=== PATIENT | male | born 1975 | race Caucasian/White ===

== ENCOUNTER 2022-08-05 19:34 | Emergency (ER) | payer SELFPAY ==
[2022-08-05 19:35] VITALS: BP 141/94; PULSE 69; RESP 15; TEMP 37.2; O2SAT 98
[2022-08-05 19:54] VITALS: BMI 44.5
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
[2022-08-05] MEDS: HYDROcodone Bitartrate/Apap 5/325 Tablet PO (20:32)
--- NOTE | 2022-08-05 20:45 | RAD_ITS ---
INDICATION: injury EXAMINATION/TECHNIQUE: X-RAY - RIGHT XR Femur Min 2 Views 4 VIEWS COMPARISON: None. FINDINGS: No acute fracture or dislocation. No destructive bone changes. Joint spaces are well-maintained. Normal alignment. Soft tissues are unremarkable. No radiopaque foreign body or soft tissue gas. RAD/Femur Min 2 Views IMPRESSION: No acute findings. Electronically Signed: Sienna Conteh MD at 21:28 EDT Reading Location ID and State: [id number] / Tel , Service support ,
== END 2022-08-05 22:35 | disposition home or self-care (01) ==
PROVIDERS: Emergency Provider Emergency Medicine; Visit Provider Emergency Medicine
DX: S40.011A Contusion of right shoulder, initial encounter (principal); S70.11XA Contusion of right thigh, initial encounter; S30.0XXA Contusion of lower back and pelvis, initial encounter; F12.90 Cannabis use, unspecified, uncomplicated; V48.0XXA Car driver injured in noncollision transport accident in nontraffic accident, initial encounter
CPT/HCPCS: 72220; 73030; 73552; 99283

== ENCOUNTER 2024-05-10 19:52 | Emergency (ER) | payer SELFPAY ==
[2024-05-10 19:53] VITALS: BP 181/108; PULSE 94; RESP 15; TEMP 36.1; O2SAT 100; BMI 41.4
--- NOTE | 2024-05-10 20:23 | EX.ED.SAOD ---
HPI <EMILIANA Shah - Last Filed: 05/10/24 21:55> History of Present Illness Chief Complaint: Mental Health Narrative Narrative: 48-year-old male presents requesting detox. He is vague on the history. He tells me that he wishes he could pinpoint what is wrong but he is not sure. He has used different drugs such as methamphetamine, marijuana, acid, and is not sure what else. His brother and friend arrived who gave me more history. His friend states he has a long-term drug problem but over the last 3 to 4 weeks has been worse, down and depressed, not acting himself. They were trying to arrange a long-term detox stay at a place in [place] called [facility] but the facility there told them he needs an acute detox in a hospital setting before going there [facility] <EMILIANA Shah - Last Filed: 05/10/24 21:55> [facility] Medical History Drug use Home Medications ?Medication ?Instructions ?Recorded ?Last Taken ?Type tramadol 50 mg tablet 50 mg PO Q6H PRN pain 3 days #12 08/05/22 Unknown Rx tabs Allergy/AdvReac Type Severity Reaction Status Date / Time No Known Allergies Allergy Verified 05/10/24 19:53 Social History (Updated 08/05/22 @ 20:[address] Davonte Mendiola MD) Smoking Status: Never smoker substance use type: marijuana ROS <EMILIANA Shah - Last Filed: 05/10/24 21:55> ROS ED ROS Narrative Constitutional: Negative for fever, chills, malaise. CVS: Negative for chest pain. Respiratory: Negative for shortness of breath. GI: Negative for abdominal pain, nausea, vomiting. Neuro: Negative for headache. EXAM <EMILIANA Shah - Last Filed: 05/10/24 21:55> Physical Exam Narrative Exam Narrative: CONST: Patient sitting in no acute distress. EYES: Normal inspection. NECK: Normal inspection. RESP: No respiratory distress, CTAB. CVS: Regular rate and rhythm, no murmur, no gallop. SKIN: Color normal, no rash, warm, dry, intact. EXTREMITIES: Normal appearance, no pedal edema. NEURO: Alert and answering questions appropriately, calm but became tearful during exam. PSYCH: Normal affect. Const Vital Signs: 05/10/24 19:53 Temperature 96.9 F L Temperature Source Temporal Pulse Rate 94 Respiratory Rate 15 Blood Pressure 181/108 H Blood Pressure Mean 132 Pulse Ox 100 Oxygen Delivery Method Room Air <Dr. Dylon Hinkle DO - Last Filed: 05/11/24 00:37> Physical Exam Const Vital Signs: 05/10/24 19:53 Temperature 96.9 F L Temperature Source Temporal Pulse Rate 94 Respiratory Rate 15 Blood Pressure 181/108 H Blood Pressure Mean 132 Pulse Ox 100 Oxygen Delivery Method Room Air MDM <EMILIANA Shah - Last Filed: 05/10/24 21:55> MDM MDM Narrative Medical decision making narrative: History gathered from: Patient, brother, friend 48 year old male presents requesting detox. He is reticent to provide details and cannot tell me exactly what drugs he is using. He reports feeling burnt out and depressed but is not suicidal or homicidal. His friend and brother arrived who states they want him to detox in the hospital before they plan to take him to a longer term addiction treatment facility in [place]. Patient's blood work and urine drug screen was obtained to see what substances he is on and if these would require detox. CBC is unremarkable. CMP shows glucose of 266, otherwise normal. Alcohol level is negative. Lab Data Attestation: I reviewed the patient's lab results. Labs: Laboratory Results - last 24 hr 05/10/24 05/10/24 20:30 21:42 WBC 8.5 RBC 5.23 Hgb 14.9 Hct 42.6 MCV 81.5 MCH 28.5 MCHC 35.0 RDW Std Deviation 34.4 L RDW Coeff of Cornell 11.7 Plt Count 225 MPV 9.7 Immature Gran % (Auto) 0.200 Neut % (Auto) 60.9 Lymph % (Auto) 29.9 Kaufman % (Auto) 7.1 Eos % (Auto) 1.3 Baso % (Auto) 0.6 Absolute Neuts (auto) 5.2 Absolute Lymphs (auto) 2.54 Nucleated RBC % 0 Sodium 136 Potassium 3.7 Chloride 102 Carbon Dioxide 26.0 Anion Gap 8 BUN 15 Creatinine 0.90 Estim Creat Clear Calc 119.06 Est GFR (MDRD) Af Amer 117 Est GFR (MDRD) Non-Af 96 BUN/Creatinine Ratio 16.7 Glucose 266 H Calcium 9.1 Total Bilirubin 0.60 AST 12 L ALT 22 Alkaline Phosphatase 78 Total Protein 7.2 Albumin 3.5 Globulin 3.7 Albumin/Globulin Ratio 0.9 Urine Opiates Screen NEGATIVE Urine Methadone Screen NEGATIVE Ur Barbiturates Screen NEGATIVE Ur Phencyclidine Scrn NEGATIVE Ur Amphetamines Screen NEGATIVE MDMA (Ecstasy) Screen NEGATIVE U Benzodiazepines Scrn NEGATIVE Urine Cocaine Screen NEGATIVE U Cannabinoids Screen POSITIVE H Ur Drug Screen Comment Ethyl Alcohol < 3.0 <Dr. Dylon Hinkle, DO - Last Filed: 05/11/24 00:37> [facility] Lab Data Labs: Laboratory Results - last 24 hr 05/10/24 05/10/24 20:30 21:42 WBC 8.5 RBC 5.23 Hgb 14.9 Hct 42.6 MCV 81.5 MCH 28.5 MCHC 35.0 RDW Std Deviation 34.4 L RDW Coeff of Cornell 11.7 Plt Count 225 MPV 9.7 Immature Gran % (Auto) 0.200 Neut % (Auto) 60.9 Lymph % (Auto) 29.9 Kaufman % (Auto) 7.1 Eos % (Auto) 1.3 Baso % (Auto) 0.6 Absolute Neuts (auto) 5.2 Absolute Lymphs (auto) 2.54 Nucleated RBC % 0 Sodium 136 Potassium 3.7 Chloride 102 Carbon Dioxide 26.0 Anion Gap 8 BUN 15 Creatinine 0.90 Estim Creat Clear Calc 119.06 Est GFR (MDRD) Af Amer 117 Est GFR (MDRD) Non-Af 96 BUN/Creatinine Ratio 16.7 Glucose 266 H Calcium 9.1 Total Bilirubin 0.60 AST 12 L ALT 22 Alkaline Phosphatase 78 Total Protein 7.2 Albumin 3.5 Globulin 3.7 Albumin/Globulin Ratio 0.9 Urine Opiates Screen NEGATIVE Urine Methadone Screen NEGATIVE Ur Barbiturates Screen NEGATIVE Ur Phencyclidine Scrn NEGATIVE Ur Amphetamines Screen NEGATIVE MDMA (Ecstasy) Screen NEGATIVE U Benzodiazepines Scrn NEGATIVE Urine Cocaine Screen NEGATIVE U Cannabinoids Screen POSITIVE H Ur Drug Screen Comment Ethyl Alcohol < 3.0 Treatment and Re-Evaluation Narrative: I have personally performed a face to face assessment of the patient and have reviewed the MOLLY Note. I performed a substantive portion of the visit including all aspects of the following. My bhatti findings include: History: Patient presents with intermittent confusion that has been going on for the past few weeks. Patient states it is gradually getting worse. Patient admits to a history of substance abuse. Patient states he is scheduled to go to a long-term inpatient treatment facility. However, family states that the patient was told to go to a hospital that does acute detox. Patient admits to using methamphetamines and opiates. Patient does not know exactly how much of the methamphetamines and opiates that he takes. Patient states he just takes them to get high. Patient denies any suicidal homicidal ideations. Exam: Vital signs are stable except for an elevated blood pressure of 181/108. Patient is afebrile. Patient is in no acute distress. Patient is resting comfortably on examination. Oral mucosa is pink and moist. Neck is supple. Trachea is midline. There is no JVD. Heart was regular rate and rhythm. Lungs are clear and equal bilaterally. There is good respiratory effort noted. Abdomen is soft. Bowel sounds are normal. There is no tenderness. Cranial nerves II through XII are intact. There are no focal motor or sensory deficit. Medical Decision Making: CBC will be obtained to assess for leukocytosis and anemia. Comprehensive metabolic profile will be obtained to assess for hepatic function, renal function, and electrolyte abnormality. Serum alcohol level will be obtained to assess for alcohol intoxication. Urine drug screen will be obtained to assess for substance abuse. CBC was reviewed and was within normal limits. Serum alcohol level was reviewed and was normal at less than 3.0. Comprehensive metabolic profile was reviewed. Glucose was mildly elevated at 266. Anion gap was normal. The remainder was within normal limits. Urine tox screen was reviewed and was positive for cannabinoids. Patient was advised of his findings. Patient was advised that he cannot be admitted for detox from cannabinoids. Since there is no other substance that was positive the last tox screen, patient was advised that he cannot be admitted for detox. Patient states he disagrees with the diagnosis. Patient was advised that since he does not know what substances that he abuses, and the only thing to show up on his tox screen was cannabinoids, inpatient detox is not available to him. I did advise the patient that we will have the crisis counselor come talk to him to provide other resources for him. Crisis counselor was in to evaluate the patient and felt the patient would benefit from inpatient treatment. Since he has no insurance, [facility] is the only option for him for inpatient treatment. Patient is agreeable to go. Convoy slip was placed on the chart. Patient will be transferred there when arrangements are made. Care of the patient was turned over the oncoming physician pending transfer. Discharge Plan Triage Chief Complaint: Mental Health ED Midlevel Provider: Thuy Amador ED Provider: Dylon Hinkle Dx/Rx/DC Orders Clinical Impression: Polysubstance abuse, Dissociative episodes Prescriptions: No Action tramadol 50 mg tablet 50 mg PO Q6H PRN (Reason: pain) 3 Days Qty: 12 0RF Primary Care Provider: Care Physician,No Primary Referrals: Care Physician,No Primary [Primary Care Provider] - Print Language: Japanese Disposition Disposition: Psychiatric Hospital or Unit Discharge Location: [facility]
[2024-05-10 20:42] LABS: Absolute Lymphocyte Count 2.54 X10^3/uL (0.83-4.51); Absolute Neutrophil Count 5.2 X10^3/uL (2.0-7.7); Basophil# 0.05 X10^3/uL; Basophil% 0.6 % (0-1); Eosinophil# 0.11 X10^3/uL; Eosinophils% 1.3 % (0-5); Hematocrit 42.6 % (40-54); Hemoglobin 14.9 g/dL (13.0-16.5); Lymphocyte # 2.54 X10^3/ul (0.83-4.51); Lymphocyte % 29.9 % (19-41); Mean Corpuscular Hgb 28.5 pg (27.0-32.0); Mean Corpuscular Volume 81.5 fL (80-94); Mean Platelet Vol. 9.7 fl (6.2-12.0); Monocyte% 7.1 % (0-10); NRBC Flagged by Analyzer 0 % (0-5); Neutrophil # 5.18 X10^3/uL (2.7-7.7); Neutrophil % 60.9 % (47-70); Platelet Count 225 K/mm3 (150-450); RBC Distribution Width CV 11.7 % (11.6-14.6); RBC Distribution Width SD 34.4 fl (35.1-43.9); Red Blood Count 5.23 M/mm3 (4.6-6.2); White Blood Count 8.5 K/mm3 (4.4-11.0)
[2024-05-10 20:55] LABS: Alcohol, Blood (Medical)-Serum < 3.0 mg/dL
[2024-05-10 20:59] LABS: ALB/GLOB Ratio 0.9 RATIO (0.9-2.4); AST(SGOT) 12 U/L (15-37); Alanine Aminotransfer ALT/SGPT 22 U/L (16-61); Albumin, Serum 3.5 g/dL (3.2-5.0); Alkaline Phosphatase 78 U/L (45-117); Anion Gap 8 (5-15); BUN 15 mg/dL (7-18); BUN/Creat Ratio 16.7 RATIO (10-20); Calcium,Total 9.1 mg/dL (8.5-10.1); Chloride 102 mmol/L (98-107); EST Glomerular Filtration Rate 96 mL/min (>60); Est Glom Filt Rate - Afr Amer 117 mL/min (>60); Estimated Creatinine Clearance 119.06 ml/min; Globulin 3.7 g/dL (2.2-4.2); Glucose 266 mg/dL (74-106); Potassium 3.7 mmol/L (3.5-5.1); Protein, Total 7.2 g/dL (6.4-8.2); Sodium Level 136 mmol/L (136-145)
[2024-05-10 22:08] LABS: Amphetamine Urine VISTA NEGATIVE (<1000 ng/mL); Barbiturate Urine VISTA NEGATIVE (< 200 ng/mL); Benzodiazepine Urine VISTA NEGATIVE (< 200 ng/mL); Cocaine Urine VISTA NEGATIVE (< 300 ng/mL); Ecstacy Urine VISTA NEGATIVE (< 500 ng/mL); Methadone Urine VISTA NEGATIVE (< 300 ng/mL); PCP Urine VISTA NEGATIVE (< 25 ng/mL); THC Urine VISTA POSITIVE (< 50 ng/mL); Vista UDS pH Range 5
[2024-05-11 04:00] VITALS: BP 161/73; PULSE 76; RESP 16; O2SAT 100
--- NOTE | 2024-05-11 06:10 | EKG12_ITS ---
Test Reason : PLACEMENT Blood Pressure : */* mmHG Vent. Rate : 81 BPM Atrial Rate : 81 BPM P-R Int : 164 ms QRS Dur : 136 ms QT Int : 404 ms P-R-T Axes : 44 14 39 degrees QTcB Int : 469 ms Normal sinus rhythm with sinus arrhythmia Right bundle branch block Abnormal ECG Confirmed by ARGENTINA BRUCE, VICTORIANO ([id number]), field map editor MICHEL REYES ([id number]) on 05/12/2024 7:55:29 AM Referred By: Confirmed By: VICTORIANO ELAINE MD
--- NOTE | 2024-05-11 06:10 | ED.RN ---
NETTA RN FROM [facility] CALLED ABOUT REFERRAL SENT ABOUT PT. REQUESTS AN EKG FOR HER DR TO REVIEW. CHARGE NURSE AWARE AND ORDER PUT IN.
--- NOTE | 2024-05-11 08:51 | CM.ED ---
Social Work Contacted Haydee at Crisis and updated that [facility] had requested an EKG, EKG was completed and faxed to [facility] this morning. Haydee to update either or nursing staff when she has information regarding acceptance. Johana Nails, GAS METER MECHANIC, BUSINESS LAW INSTRUCTOR
[2024-05-11 09:00] VITALS: BP 163/89; PULSE 76; RESP 16; O2SAT 99
--- NOTE | 2024-05-11 09:39 | ED.RN ---
ACCEPTED AT [facility] AT [id number]
[2024-05-11 09:51] VITALS: BP 163/89; PULSE 78; RESP 16; O2SAT 99
== END 2024-05-11 11:37 ==
PROVIDERS: Physician Assistant; Emergency Provider Emergency Medicine; Visit Provider Emergency Medicine
DX: F19.19 Other psychoactive substance abuse with unspecified psychoactive substance-induced disorder (principal); Z79.899 Other long term (current) drug therapy
CPT/HCPCS: 80053; 80307; 82077; 85025; 93005; 99285

== ENCOUNTER 2024-08-06 19:12 | Emergency (ER) | payer MEDICAID, SELFPAY ==
[2024-08-06 19:12] VITALS: BP 164/100; PULSE 80; RESP 14; TEMP 36.1; O2SAT 100; BMI 38.8
--- NOTE | 2024-08-06 19:44 | CT_ITS ---
PROCEDURE: BRAIN/HEAD WITHOUT CONTRAST 08/06/2024 REASON FOR EXAM: 49-year-old male, loss of consciousness, headache x6 months. TECHNIQUE: Head CT without intravenous contrast. Coronal and Sagittal reconstruction series were provided. One or more dose reduction techniques were used (e.g., Automated exposure control, adjustment of the mA and/or kV according to patient size, use of iterative reconstruction technique. RADIATION DOSE SUMMARY: CTDlvol: 45 mGy DLP: 812 mGycm COMPARISON: None. FINDINGS: Brain: Normal cerebral and cerebellar brain volume. The nails-white matter interfaces are maintained. No acute intracranial hemorrhage or herniation. CSF Spaces: No ventriculomegaly. Sinuses/Mastoids: The mastoid air cells and visualized paranasal sinuses are well-aerated. Bones: No acute calvarial fracture. No scalp hematoma. CT/Brain/Head without Contrast IMPRESSION: Unremarkable CT head. Reading Location: [id number]
--- NOTE | 2024-08-06 19:45 | EDS_ITS ---
HPI History of Present Illness Chief Complaint: Headache Informant: patient and spouse/S.O. Onset/Context/Timing Onset: Month(s) Context: Gradual Onset Timing: Intermittent Current Severity: Gone Maximum Severity: Mild Narrative Narrative: 49-year-old male history of methamphetamine abuse which he is trying to stop and diabetes. 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 She said he has had intermittent episodes of confusion. Said has had some intermittent headaches. No fall injury or head trauma. Did not vomiting, diarrhea or fever. Currently has no complaints. Prior similar symptoms: Yes Recent Illness/Hospitalization: No PFSH PFSH Medical History Drug use Home Medications ?Medication ?Instructions ?Recorded ?Last Taken ?Type tramadol 50 mg tablet 50 mg PO Q6H PRN pain 3 days #12 08/05/22 Unknown Rx tabs Allergy/AdvReac Type Severity Reaction Status Date / Time No Known Allergies Allergy Verified 08/06/24 19:13 Social History (Updated 08/06/24 @ 21:43 by Yelena Vazquez) household members: children housing: apartment Smoking Status: Never smoker substance use type: marijuana ROS ROS ED ROS Narrative Patient denies recent illness. Constitutional Constitutional ED: Denies chills or fever(s) Eyes Eyes: Denies blurry vision ENT ENT ED: Denies ear pain Respiratory/Chest Respiratory/Chest: Denies cough or dyspnea Gastrointestinal Gastrointestinal: Denies abdominal pain Genitourinary Genitourinary ED: Denies dysuria or hematuria Musculoskeletal Musculoskeletal: Denies arthralgias Integumentary Denies abscess or Abrasions Neurologic Neurologic: Reports headache(s) Psychiatric Psychiatric: Denies anxiety or depression Endocrine Endocrinology: Denies cold intolerance Hematologic/Lymphatic Hematologic/Lymphatic: Reports none Allergic/Immunologic Allergic/Immunologic ED: Denies mouth swelling, tongue swelling or urticaria EXAM Physical Exam Narrative Exam Narrative: 49-year-old male sitting upright in bed. Vital signs are stable afebrile. No acute distress. at bedside. H EENT exam pupils round reactive light. Extra motions are intact. No facial droop. Normal speech. No trauma to his face or scalp. Nontender. Neck nontender. No lymphadenopathy. Lungs clear to auscultation bilaterally. Heart regular rhythm rate about 80 no murmur. Chest wall ribs nontender. Abdomen soft nontender. Moving all 4 extremities. 5 out of 5 specification manager strength. Dorsi plantarflexion intact. Fingertip to nose within normal limits. No drift of either upper or lower extremities. Normal strength. Neurologically is awake and alert. Answer questions following commands. No focal motor deficits. Patient knows month, year. Denies states aware reside. Currently he is not confused. Const Vital Signs: 08/06/24 19:12 08/06/24 21:12 Temperature 97 F L Temperature Source Temporal Pulse Rate 80 89 Respiratory Rate 14 16 Blood Pressure 164/100 H 138/79 H Blood Pressure Mean 121 98 Pulse Ox 100 98 Oxygen Delivery Method Room Air Positive well nourished and well developed; Negative for cachectic, contractures or unkempt General Appearance ED: well developed and NAD; Negative for unkempt, cachectic, contractures, cyanotic, diaphoretic or pallor Nutritional Appearance: Negative for cachectic HEENT Reports moist mucous membranes Negative for trauma or tenderness Eyes EOMs intact bilaterally General Eye ED: Negative for pale conjunctiva or scleral icterus Neck no lymphadenopathy, supple and no JVD Chest Wall inspection of chest normal and palpation of chest normal Resp normal respiratory effort and clear to auscultation bilaterally Cardio regular rate, regular rhythm, S1 normal heart sound, S2 normal heart sound and no murmurs GI normal to inspection, nondistended, normoactive bowel sounds, non-tender and non-distended Palpation: Negative for tender, guarding or rebound tenderness present Back/Spine no CVA tenderness Extremity normal to inspection General Extremety ED: Negative for edema or tenderness General Extremity: Negative for edema Neuro oriented x3 and CN's II-XII intact bilaterally Sensorium / Orientation: alert; Negative for orientation impaired, lethargic or stuporous Motor Exam: strength 5/5 throughout Psych mental status grossly normal Appearance: Negative for unkempt Attitude: No agitated Mood & Affect: Negative for depressed, anxious or tearful Skin no rashes or lesions noted, no wounds and skin turgor normal General Skin Exam: elasticity normal; Negative for jaundice or pallor Lesions: No lesion noted Rashes: No rashes noted Trauma: Negative for abrasion Wounds: Negative for wounds noted MDM MDM MDM Narrative Medical decision making narrative: 49-year-old male history of methamphetamine abuse and diabetes episodes of confusion currently has a normal exam. CAT scan of his brain screening labs including a CBC and CMP will be obtained. Exam is benign. Repeat exam patient is doing well at 10:41 PM. He will be discharged home with outpatient follow-up. His ex- spoke to nursing and was requesting inpatient detox she never said that to me. We do not have inpatient detox from methamphetamine abuse. Patient does not want to be detoxed neither. History & Record Review Discussion w/independent historian: Patient and Family Additional record(s) reviewed:: Prior inpatient record, Prior outpatient record, Prior ED visit and Prior labs Lab Data Attestation: I reviewed the patient's lab results. Lab results narrative: CBC shows white count of 5. H&H 14 and 43. Platelets 219. Electrolytes show sodium 138. Gap 13. BUN and creatinine of 14 and 0.8. Glucose 192. Liver enzymes normal. CT of the brain showed no acute abnormality. Labs: Laboratory Results - last 24 hr 08/06/24 20:01 WBC 5.9 RBC 5.12 Hgb 14.7 Hct 43.1 MCV 84.2 MCH 28.7 MCHC 34.1 RDW Std Deviation 36.0 RDW Coeff of [place] 11.9 Plt Count 219 MPV 9.8 Immature Gran % (Auto) 0.200 Neut % (Auto) 59.2 Lymph % (Auto) 31.5 [place] % (Auto) 6.2 Eos % (Auto) 2.4 Baso % (Auto) 0.5 Absolute Neuts (auto) 3.5 Absolute Lymphs (auto) 1.87 Nucleated RBC % 0 Sodium 138 Potassium 4.2 Chloride 100 Carbon Dioxide 24.8 Anion Gap 13 BUN 14 Creatinine 0.88 Estim Creat Clear Calc 120.24 Est GFR (MDRD) Non-Af 107 BUN/Creatinine Ratio 15.3 Glucose 192 H Calcium 8.9 Total Bilirubin 0.28 AST 17 ALT 14 Alkaline Phosphatase 73 Total Protein 6.6 Albumin 3.8 Globulin 2.7 Albumin/Globulin Ratio 1.4 Radiography Diagnostic Testing: Clinical Impression(s) from Imaging Studies Brain CT 08/06/24 19:44 IMPRESSION: Unremarkable CT head. Reading Location: [facility] Discharge Plan Triage Chief Complaint: Headache ED Provider: Samson Abraham Dx/Rx/DC Orders Clinical Impression: Acute alteration in mental status, History of drug abuse Instructions: Substance Use Recovery Peer Support, ED Confusion Prescriptions: No Action tramadol 50 mg tablet 50 mg PO Q6H PRN (Reason: pain) 3 Days Qty: 12 0RF Primary Care Provider: Care Physician,No Primary Referrals: Care Physician,No Primary [Primary Care Provider] - Estefani Herring NP-C [Non-Staff] - As soon as possible Activity Restrictions/Additional Instructions: Your labs and CAT scan look good. Follow-up with the [facility] [place] if you are interested in drug counseling and rehabilitation. Your CAT scan and labs were unremarkable. Print Language: Indian Disposition Disposition: Home, Self Care
[2024-08-06 20:13] LABS: Absolute Lymphocyte Count 1.87 X10^3/uL (0.83-4.51); Absolute Neutrophil Count 3.5 X10^3/uL (2.0-7.7); Basophil# 0.03 X10^3/uL; Basophil% 0.5 % (0-1); Eosinophil# 0.14 X10^3/uL; Eosinophils% 2.4 % (0-5); Hematocrit 43.1 % (40-54); Hemoglobin 14.7 g/dL (13.0-16.5); Lymphocyte # 1.87 X10^3/ul (0.83-4.51); Lymphocyte % 31.5 % (19-41); Mean Corp Hgb Conc 34.1 g/dL (32-36); Mean Corpuscular Hgb 28.7 pg (27.0-32.0); Mean Corpuscular Volume 84.2 fL (80-94); Mean Platelet Vol. 9.8 fl (6.2-12.0); Monocyte# 0.37 X10^3/uL; Monocyte% 6.2 % (0-10); NRBC Flagged by Analyzer 0 % (0-5); Neutrophil # 3.52 X10^3/uL (2.7-7.7); Neutrophil % 59.2 % (47-70); Platelet Count 219 K/mm3 (150-450); RBC Distribution Width CV 11.9 % (11.6-14.6); Red Blood Count 5.12 M/mm3 (4.6-6.2); White Blood Count 5.9 K/mm3 (4.4-11.0)
[2024-08-06 20:36] LABS: ALB/GLOB Ratio 1.4 RATIO (0.9-2.4); AST(SGOT) 17 U/L (<=37); Alanine Aminotransfer ALT/SGPT 14 U/L (<=46); Albumin, Serum 3.8 g/dL (3.5-5.0); Alkaline Phosphatase 73 U/L (40-129); Anion Gap 13 (5-15); BUN 14 mg/dL (4-19); BUN/Creat Ratio 15.3 RATIO (10-20); Calcium,Total 8.9 mg/dL (7.6-11.0); Carbon Dioxide 24.8 mmol/L (21.0-32.0); Chloride 100 mmol/L (98-108); Creatinine, Serum 0.88 mg/dL (0.70-1.20); EST Glomerular Filtration Rate 107 (>60); Estimated Creatinine Clearance 120.24 ml/min (50-250); Globulin 2.7 g/dL (2.2-4.2); Glucose 192 mg/dL (70-99); Potassium 4.2 mmol/L (3.3-5.1); Protein, Total 6.6 g/dL (5.9-8.4); Sodium Level 138 mmol/L (133-145); Total Bilirubin 0.28 mg/dL (0.00-1.30)
[2024-08-06 21:12] VITALS: BP 138/79; PULSE 89; RESP 16; O2SAT 98
--- NOTE | 2024-08-06 21:30 | CM.ED ---
Social Work Patient came to ED with ex-, laura states that patient has had periods of intermittent confusion and headaches. Patients exwife left ED and later called back to speak to nurse. Exjuanitofe stated that patient was using when he had their 15 year old son and she feels that he needs treatment. Patient admits to half-way meth use, telling SW that he has been using for over 10 years. Patient states that over the years, he has convinced himself it was not a problem because he felt he wasn't overdoing it, just using it to keep himself awake for long road trips. Patient states that he does want to quit, however he does not feel he needs inpatient or residential treatment. Patient denies using while son is in his custody. Patient requested resources for counseling. Counseling list, [facility], [facility], and [facility] program was provided. No other needs identified at this time. Johana Nails, SEWER PIPE LAYER, AUTO SEAT COVER INSTALLER
== END 2024-08-06 22:49 | disposition home or self-care (01) ==
PROVIDERS: Emergency Provider Emergency Medicine; Visit Provider Emergency Medicine
DX: R41.82 Altered mental status, unspecified (principal)
CPT/HCPCS: 70450; 80053; 85025; 99283

== ENCOUNTER 2025-01-15 18:10 | Emergency (ER) | payer MEDICAID, SELFPAY ==
[2025-01-15 18:11] VITALS: BP 183/105; PULSE 101; RESP 16; TEMP 36.5; O2SAT 100; BMI 37.8
--- NOTE | 2025-01-15 20:06 | ED.RN ---
2007: PT. STATED I HAVE BEEN HERE ALL DAY. I AM GOING TO LEAVE. PT. AMBULATED OUT OF DEPARTMENT CARRYING A RED DUFFEL BAG. PATIENT LEFT WITHOUT BEING SEEN BY A PROVIDER. REGISTRATION NOTIFIED.
== END 2025-01-15 20:07 | disposition left against medical advice (07) ==
LOC: ED 20:14
DX: Z53.21 Procedure and treatment not carried out due to patient leaving prior to being seen by health care provider (principal)

== ENCOUNTER 2025-01-15 22:59 | Emergency (ER) | payer SELFPAY ==
[2025-01-15 23:07] VITALS: BP 185/109; PULSE 102; RESP 16; TEMP 36.8; O2SAT 100; BMI 37.8
--- NOTE | 2025-01-15 23:17 | ED.RN ---
PT. PRESENTS WITH DISHEVELED APPEARANCE. CLOTHING SOILED, LAYERED (TWO T-SHIRTS NOTED), AND FOOTWEAR (SANDALS) VISIBLY COVERED IN GRIME. DIRT AND DEBRIS OBSERVED ON EXPOSED SKIN AND UNDER FINGERNAILS. STRONG BODY ODOR PRESENT. PT ARRIVES WITH SINGLE RED DUFFEL BAG.
--- NOTE | 2025-01-15 23:26 | EDS_ITS ---
HPI History of Present Illness Chief Complaint: Confusion [facility] Medical History Drug use Home Medications ?Medication ?Instructions ?Recorded ?Last Taken ?Type metformin 1,000 mg tablet 1,000 mg PO BID 01/15/25 Unk nown History Allergy/AdvReac Type Severity Reaction Status Date / Time No Known Allergies Allergy Verified 01/15/25 18:13 Family History no significant family his Social History household members: children housing: apartment Smoking Status: Former smoker substance use type: marijuana EXAM Physical Exam Const Vital Signs: 01/15/25 23:07 01/16/25 01:44 Temperature 98.3 F Temperature Source Oral Pulse Rate 102 H 81 Respiratory Rate 16 17 Blood Pressure 185/109 H 176/92 H Blood Pressure Mean 134 120 Pulse Ox 100 99 Oxygen Delivery Method Room Air Room Air [facility] [place]arr[place] Medical decision making narrative: HISTORY OF PRESENT ILLNESS: Chief complaint: Confusion 49-year-old male history of substance abuse, amphentermine abuse presents with concern for confusion. Notes This has been going on for 1 to 2 years. Denies any head trauma. Denies any fevers. Denies any vomiting. Denies any cough. Denies any abdominal pain. Denies any drug use recently. States he just does not feel right. Patient denies any suicidal homicidal ideation. Denies any auditory visual hallucinations. Denies chest pain, shortness of breath or headaches. Denies recent falls or trauma. REVIEW OF SYSTEMS: Pertinent positives: Confusion Pertinent negatives: As per HPI PHYSICAL EXAM: Nursing triage notes reviewed, Vital signs reviewed Constitutional: please see mdm HENT: MMM Eyes: Pupils equal round and reactive to light, Extraocular muscles intact Neck: No stridor, no JVD, full neck ROM Lungs: Clear to auscultation, No wheezing or rales. No increased work of breathing, no conversational dyspnea, no accessory muscle use, no nasal flaring. No respiratory distress noted Heart: Regular rate and rhythm, No murmurs, No rubs and No gallops, 2+ distal pulses (radial, femoral, posterior tibial) in all extremities Abdomen: Soft, there is no tenderness, rigidity, rebound or guarding, no obvious peritoneal signs, no palpable pulsatile abdominal masses, no auscultated abdominal bruit : No CVAT Extremities: No edema Neuro: No new focal neurological deficits, cranial nerves II through XII intact, 5/5 strength in all present extremities. Intact sensation to light touch in all present extremities, 2+ reflexes bilateral patella tendons. Skin: No rash or lesions noted Psych: Goal-directed thought process, does not appear to be responding to internal stimuli MEDICAL DECISION MAKING: Chief Complaint: please see HPI External records reviewed: Reviewed prior imaging studies Factors affecting care: As per [facility] Social determinants of health: Homeless History obtained from others: none Consults: none [facility] Narrative: The patient was initially HDS, afebrile, non-toxic appearing. Exam without obvious focal neurological deficits. I considered the following differential diagnosis: ICH, infectious or metabolic encephalopathy. I obtained a broad lab and imaging to further determine if the patient was suffering from a life-threatening etiology. ALL IMAGES (IF OBTAINED) HAVE BEEN PERSONALLY REVIEWED AND INTERPRETED BY MYSELF. CBC without leukocytosis, severe anemia, no thrombocytopenia. BMP without evidence of significant electrolyte abnormalities, no anion gap, no acute kidney injury. Urinalysis shows no evidence of urinary inflammation suggestive of UTI CT scan of the head negative for ICH I have personally reviewed the patient's chest x-ray. Chest x-ray is unremarkable for pulmonary edema, pneumothorax, pneumonia or focal cardiopulmonary abnormality. Upon re-evaluation patient was alert and oriented x 3. Patient notes he is homeless. States just wanting a place to stay. I have a strong suspicion for malingering. There is no indication for hospitalization at this time. Discussed elevated blood pressure in the emergency department and need for close outpatient follow-up. Gave outpatient resources including [facility] and local [facility]. Given the duration of his symptoms and lack of obvious findings to suggest metabolic, infectious or other encephalopathies patient will be discharged with close outpatient follow with his PCP for further evaluation and treatment. The patient and/or family, caregivers express understanding. The patient and/or family, caregivers agrees with the plan. Shared decision making: I will have a discussion with the patient and or visitors regarding risk/benefits of further testing or admission. They will be made aware of of the risk/benefits inherent in this decision they will be given the opportunity to voice understanding. Total critical care time today provided was at least 0 minutes. This excludes separately billable procedures. Critical care time (if documented) is secondary to the patient having high probability of clinically significant/life threatening deterioration in the patient's condition which required my urgent intervention. Impression: 1. Confusion 2. History of polysubstance abuse Dispo: Discharge home This note was generated with [employer] dictation software. It may contain incorrect words, spelling, and punctuation that were not noted in review of the chart prior to signing. Lab Data Labs: Laboratory Results - last 24 hr 01/16/25 01/16/25 00:00 00:15 WBC 9.3 RBC 4.84 Hgb 13.8 Hct 40.3 MCV 83.3 MCH 28.5 MCHC 34.2 RDW Std Deviation 36.1 RDW Coeff of [place] 11.9 Plt Count 237 MPV 9.4 Immature Gran % (Auto) 0.300 Neut % (Auto) 68.7 Lymph % (Auto) 21.8 [place] % (Auto) 7.4 Eos % (Auto) 1.3 Baso % (Auto) 0.5 Absolute Neuts (auto) 6.4 Absolute Lymphs (auto) 2.03 Nucleated RBC % 0 Sodium 138 Potassium 4.2 Chloride 102 Carbon Dioxide 25.4 Anion Gap 10 BUN 16 Creatinine 0.85 Estim Creat Clear Calc 122.69 Est GFR (MDRD) Non-Af 108 BUN/Creatinine Ratio 18.4 Glucose 152 H Calcium 9.2 Urine Color Yellow Urine Clarity Clear Urine pH 6.0 Ur Specific [place] 1.020 Urine Protein 30 H Urine Glucose (UA) 50 H Urine Ketones 5 H Urine Occult Blood Negative Urine Nitrite Negative Urine Bilirubin Negative Urine Urobilinogen 1 H Ur Leukocyte Esterase Negative Urine RBC 0 SEEN Urine WBC 0-5 SEEN Ur Squamous Epith Cells 0-5 SEEN Urine Bacteria RARE Urine Mucus 1+ Radiography Diagnostic Testing: Clinical Impression(s) from Imaging Studies Brain CT 01/15/25 23:38 IMPRESSION: No intracerebral or extra-axial hemorrhage. No acute cerebrovascular insult. If clinical symptoms persist, further evaluation with MRI may be considered as clinically warranted. Unremarkable non-enhanced CT study for the brain. [facility]-Ray 01/15/25 23:59 IMPRESSION: No Acute Findings. Reading [facility] Discharge Plan Triage Chief Complaint: Confusion ED Provider: Fernie Land Dx/Rx/DC Orders Clinical Impression: Altered awareness, transient Instructions: ED Confusion Prescriptions: No Action metformin 1,000 mg tablet 1,000 mg PO BID Primary Care Provider: Care Physician,No Primary Referrals: Padmaja rPice [Provider Group] Arthur Bang MD [Med Staff - Signal Intelligence/Electronic Warfare] - Activity Restrictions/Additional Instructions: Thank you for trusting us with your care today! Your labs images are reassuring. Please take Tylenol (2 pills, 650 mg), ibuprofen (2 pills, 400 mg) every 6 hours as needed for pain and fever control. Please return to the emergency department if your symptoms change or worsen. Please follow with your primary care physician for further outpatient evaluation and management. Print Language: Greek Disposition Disposition: Home, Self Care
--- NOTE | 2025-01-15 23:38 | CT_ITS ---
PROCEDURE: BRAIN/HEAD WITHOUT CONTRAST 01/16/2025 REASON FOR EXAM: CONFUSION TECHNIQUE: Procedure Code: CTBR Modality: CT Procedure: BRAIN/HEAD WITHOUT CONTRAST Coronal and Sagittal reconstruction series were provided. One or more dose reduction techniques were used (e.g., Automated exposure control, adjustment of the mA and/or kV according to patient size, use of iterative reconstruction technique. RADIATION DOSE SUMMARY: CTDlvol: 45 mGy DLP: 812 mGycm COMPARISON: 08-06-2024 FINDINGS: The visualized brain parenchyma shows normal appearance. No focal parenchymal abnormalities are demonstrated. Bah-white matter differentiation is maintained. Normal CT appearance of the posterior fossa structures. No intracerebral or extra-axial hemorrhage. No midline shifts or deformity. Normal size and configuration of the cerebral ventricles. No definite calvarial fractures. The osseous structures in the skull base are unremarkable. Paranasal sinuses are unremarkable. CT/Brain/Head without Contrast IMPRESSION: No intracerebral or extra-axial hemorrhage. No acute cerebrovascular insult. If clinical symptoms persist, further evaluati on with MRI may be considered as clinically warranted. Unremarkable non-enhanced CT study for the brain. Reading [facility]
--- NOTE | 2025-01-15 23:38 | EKG12_ITS ---
Test Reason : CONFUSION Blood Pressure : */* mmHG Vent. Rate : 84 BPM Atrial Rate : 84 BPM P-R Int : 168 ms QRS Dur : 136 ms QT Int : 398 ms P-R-T Axes : 25 -19 18 degrees QTcB Int : 470 ms Normal sinus rhythm Right bundle branch block Septal infarct , age undetermined Abnormal ECG Confirmed by ENRIQUE BRUCE, BRIGID ([id number]), television news video editor MICHEL REYES ([id number]) on 01/18/2025 9:15:00 AM Referred By: HAMILTON Confirmed By: BRIGID NUNEZ MD
--- NOTE | 2025-01-15 23:59 | RAD_ITS ---
PROCEDURE: CHEST 1 VIEW (PORTABLE) 01/15/2025 REASON FOR EXAM: CONFUSION TECHNIQUE: Frontal view of the chest. COMPARISON: None available. FINDINGS: Hardware: None. Heart: The heart size is normal. Lungs: The lungs are clear. Bones: The bones are unremarkable. RAD/Chest 1 View (Portable) IMPRESSION: No Acute Findings. Reading [facility]
[2025-01-16 00:24] LABS: Red Blood Cells-Urine 0 SEEN /hpf (0-5)
[2025-01-16 00:25] LABS: Color, Urine Yellow (Yellow); Glucose, Dipstick 50 mg/dl (Normal); Ketone-Dipstick 5 mg/dl (Negative); Leukocyte Esterase-Dipstick Negative /ul (Negative); Nitrite-Dipstick Negative (Negative); Occult Blood-Urine Negative /ul (Negative); Protein-Dipstick 30 mg/dl (Negative); Specific Gravity, Urine 1.020 (1.002-1.030); Urine Bilirubin Dipstick Negative (Negative)
[2025-01-16 00:25] LABS: Hematocrit 40.3 % (40-54); Hemoglobin 13.8 g/dL (13.0-16.5); Immature Granulocytes Count 0.030 X10^3/uL (0.0-0.0); Mean Corp Hgb Conc 34.2 g/dL (32-36); Mean Corpuscular Volume 83.3 fL (80-94); Mean Platelet Vol. 9.4 fl (6.2-12.0); NRBC Flagged by Analyzer 0 % (0-5); Platelet Count 237 K/mm3 (150-450); RBC Distribution Width CV 11.9 % (11.6-14.6); RBC Distribution Width SD 36.1 fl (35.1-43.9); Red Blood Count 4.84 M/mm3 (4.6-6.2); White Blood Count 9.3 K/mm3 (4.4-11.0)
--- OUTSIDE RECORDS SUMMARY | 2025-01-16 00:42 | XMS RPT_ITS | CCD ---
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 distribution width (RBC) [Ratio] 11.7 % Normal 11.6-14.6 [facility] Comment on above: Performed By: #### L 501.9100, L505.5000, L100.0100, L500.4050 #### [facility] [address] [place], [address] Hematocrit (Bld) [Volume fraction] 42.6 % Normal 40-54 [facility] Comment on above: Performed By: #### L 501.9100, L505.5000, L100.0100, L500.4050 #### [facility] [address] [place], [address] Hemoglobin (Bld) [Mass/Vol] 14.9 g/dL Normal 13.0-16. 5 [facility] Comment on above: Performed By: #### L 501.9100, L505.5000, L100.0100, L500.4050 #### [facility] [address] [place], [address] IG% 0.200 Normal 0.0-0.9 [facility] Comment on above: Result Comment: IG% - Immature Granulocytes (promyelocytes, myelocytes and metamyelocytes) > 1% indicates that a LEFT SHIFT is Present. Performed By: #### L 501.9100, L505.5000, L100.0100, L500.4050 #### [facility] [address] [place], [address] Lymphocytes/100 WBC (Bld) 29.9 % Normal 19-41 [facility] Comment on above: Performed By: #### L 501.9100, L505.5000, L100.0100, L500.4050 #### [facility] [address] [place], [address] MCH (RBC) [Entitic mass] 28.5 pg Normal 27.0-32.0 [facility] Comment on above: Performed By: #### L 501.9100, L505.5000, L100.0100, L500.4050 #### [facility] [address] [place], [address] MCHC (RBC) [Mass/Vol] 35.0 g/dL Normal 32-36 [facility] Comment on above: Performed By: #### L 501.9100, L505.5000, L100.0100, L500.4050 #### [facility] [address] [place], [address] MCV (RBC) [Entitic vol] 81.5 fL Normal 80-[address] [facility] Comment on above: Performed By: #### L 501.9100, L505.5000, L100.0100, L500.4050 #### [facility] [address] [place], [address] Monocytes/100 WBC (Bld) 7.1 % Normal 0-[address] [facility] Comment on above: Performed By: #### L 501.9100, L505.5000, L100.0100, L500.4050 #### [facility] [address] [place], [address] Neutrophils/100 WBC (Bld) 60.9 % Normal 47-70 [facility] Comment on above: Performed By: #### L 501.9100, L505.5000, L100.0100, L500.4050 #### [facility] [address] [place], [address] Nucleated RBC (Bld) [#/Vol] 0 10*3/uL Normal 0-5 [facility] Comment on above: Performed By: #### L 501.9100, L505.5000, L100.0100, L500.4050 #### [facility] [address] [place], [address] Platelet mean volume (Bld) [Entitic vol] 9.7 fL Normal 6.2-12.0 [facility] Comment on above: Performed By: #### L 501.9100, L505.5000, L100.0100, L500.4050 #### [facility] [address] [place], [address] Platelets (Bld) [#/Vol] 225 10*3/uL Normal 150-450 [facility] Comment on above: Performed By: #### L 501.9100, L505.5000, L100.0100, L500.4050 #### [facility] [address] [place], [address] RBC (Bld) [#/Vol] 5.23 10*6/uL Normal 4.6-6.2 [facility] Comment on above: Performed By: #### L 501.9100, L505.5000, L100.0100, L500.4050 #### [facility] [address] [place], [address] RDW SD 34.4 fl Low 35.1-43.9 [facility] Comment on above: Performed By: #### L 501.9100, L505.5000, L100.0100, L500.4050 #### [facility] [address] [place], [address] WBC (Bld) [#/Vol] 8.5 10*3/uL Normal 4.4-11.0 [facility] Comment on above: Performed By: #### L 501.9100, L505.5000, L100.0100, L500.4050 #### [facility] [address] [place], [address] Carbon dioxide measurementOr dered By: Thuy Amador on 05-10-2024 CO2 [Moles/Vol] 26.0 mmol/L 21.0-32.0 [facility] Chloride measurementOrdered By: Thuy Amador on 05-10-2024 Chloride [Moles/Vol] 102 mmol/L 98-107 [facility] Comprehensive Metabolic Prof ilon 05-10-2024 Albumin [Mass/Vol] 3.5 g/dL Normal 3.2-5.0 [facility] Comment on above: Performed By: #### L 501.9100, L505.5000, L100.0100, L500.4050 #### [facility] [address] [place], [address] Albumin/Globulin [Mass ratio] 0.9 {ratio} Normal 0.9-2.4 [facility] Comment on above: Performed By: #### L 501.9100, L505.5000, L100.0100, L500.4050 #### [facility] [address] [place], [address] ALK P 78 U/L Normal 45-117 [facility] Comment on above: Performed By: #### L 501.9100, L505.5000, L100.0100, L500.4050 #### [facility] [address] [place], [address] ALT [Catalytic activity/Vol] 22 U/L Normal 16-61 [facility] Comment on above: Performed By: #### L 501.9100, L505.5000, L100.0100, L500.4050 #### [facility] [address] [place], [address] AST [Catalytic activity/Vol] 12 U/L Low 15-37 [facility] Comment on above: Performed By: #### L 501.9100, L505.5000, L100.0100, L500.4050 #### [facility] [address] [place], [address] Bilirubin [Mass/Vol] 0.60 mg/dL Normal 0.20-1.00 [facility] Comment on above: Result Comment: For patients on eltrombopag therapy, use of Dimension [place] TBIL is not recommended. Performed By: #### L 501.9100, L505.5000, L100.0100, L500.4050 #### [facility] [address] [place], [address] BUN/CRE 16.7 RATIO Normal 10-20 [facility] Comment on above: Performed By: #### L 501.9100, L505.5000, L100.0100, L500.4050 #### [facility] [address] [place], [address] CA,Total 9.1 mg/dL Normal 8.5-10.1 [facility] Comment on above: Performed By: #### L 501.9100, L505.5000, L100.0100, L500.4050 #### [facility] [address] [place], [address] Chloride [Moles/Vol] 102 mmol/L Normal 98-107 [facility] Comment on above: Performed By: #### L 501.9100, L505.5000, L100.0100, L500.4050 #### [facility] [address] [place], [address] CO2 [Moles/Vol] 26.0 mmol/L Normal 21.0-32.0 [facility] Comment on above: Performed By: #### L 501.9100, L505.5000, L100.0100, L500.4050 #### [facility] [address] [place], [address] Creatinine [Mass/Vol] 0.90 mg/dL Normal 0.70-1.30 [facility] Comment on above: Result Comment: The validity of the calculated GFR GFRAA in patients over 70 years has not been determined. Clinical correlation is essential. Performed By: #### L 501.9100, L505.5000, L100.0100, L500.4050 #### [facility] [address] [place], [address] ECRCL 119.06 ml/min Normal [facility] Comment on above: Performed By: #### L 501.9100, L505.5000, L100.0100, L500.4050 #### [facility] [address] [place], [address] EST GFR - AA 117 mL/min Normal >60 [facility] Comment on above: Result Comment: Afri can Ukrainian GFR Calc Performed By: #### L 501.9100, L505.5000, L100.0100, L500.4050 #### [facility] [address] [place], [address] GAP 8 Normal 5-15 [facility] Comment on above: Performed By: #### L 501.9100, L505.5000, L100.0100, L500.4050 #### [facility] [address] [place], [address] GFR/1.73 sq M.predicted among non-blacks MDRD (S/P/Bld) [Vol rate/Area] 96 mL/min/{1.73_m2} Normal >60 [facility] Comment on above: Result Comment: Non- GFR Calc Performed By: #### L 501.9100, L505.5000, L100.0100, L500.4050 #### [facility] [address] [place], [address] Globulin (S) [Mass/Vol] 3.7 g/dL Normal 2.2-4.2 [facility] Comment on above: Performed By: #### L 501.9100, L505.5000, L100.0100, L500.4050 #### [facility] [address] [place], [address] Glucose [Mass/Vol] 266 mg/dL High 74-106 [facility] Comment on above: Result Comment: Gluc ose result greater than or equal to 200 mg/dL suggests DIABETES MELLITUS per A.D.A. criteria. Performed By: #### L 501.9100, L505.5000, L100.0100, L500.4050 #### [facility] [address] [place], [address] Potassium [Moles/Vol] 3.7 mmol/L Normal 3.5-5.1 [facility] Comment on above: Performed By: #### L 501.9100, L505.5000, L100.0100, L500.4050 #### [facility] [address] [place], [address] Sodium [Moles/Vol] 136 mmol/L Normal 136-145 [facility] Comment on above: Performed By: #### L 501.9100, L505.5000, L100.0100, L500.4050 #### [facility] [address] [place], [address] T PROT 7.2 g/dL Normal 6.4-8.2 [facility] Comment on above: Performed By: #### L 501.9100, L505.5000, L100.0100, L500.4050 #### [facility] [address] [place], [address] Urea nitrogen [Mass/Vol] 15 mg/dL Normal 7-18 [facility] Comment on above: Performed By: #### L 501.9100, L505.5000, L100.0100, L500.4050 #### [facility] [address] [place], [address] Emergency Department Summary on 05-10-2024 Emergency Department Summary [facility] Medical Records Department [address] [place] [address] Emergency Department Summary 05/10/24 MR#: [id number] Acct: [id number] Name: NEAL WARREN Rep #: [id number] : 1975 48 From: Thuy HOPSON PCP: Care Physician,No Primary Status:REG ER Location: ED HPI History of Present Illness Chief Complaint: Mental Health Narrative Narrative: 48-year-old male presents requesting detox. He is vague on the history. He tells me that he wishes he could pinpoint what is wrong but he is not sure. He has used different drugs such as methamphetamine, marijuana, acid, and is not sure what else. His brother and friend arrived who gave me more history. His friend states he has a long-term drug problem but over the last 3 to 4 weeks has been worse, down and depressed, not acting himself. They were trying to arrange a long- term detox stay at a place in [place] called [facility] but the facility there told them he needs an acute detox in a hospital setting before going there [facility] Medical History Drug use Home Medications ???Medication ???Instructions ???Recorded ???Last Taken ???Type tramadol 50 mg tablet 50 mg PO Q6H PRN pain 3 days #12 08/05/22 Unknown Rx tabs Allergy/AdvReac Type Severity Reaction Status Date / Time No Known Allergies Allergy Verified 05/10/24 19:53 Social History (Updated 08/05/22 @ 20:[address] Davonte Mendiola MD) Smoking Status: Never smoker substance use type: marijuana ROS ROS ED ROS Narrative Constitutional: Negative for fever, chills, malaise. CVS: Negative for chest pain. Respiratory: Negative for shortness of breath. GI: Negative for abdominal pain, nausea, vomiting. Neuro: Negative for headache. EXAM Physical Exam Narrative Exam Narrative: CONST: Patient sitting in no acute distress. EYES: Normal inspection. NECK: Normal inspection. RESP: No respiratory distress, CTAB. CVS: Regular rate and rhythm, no murmur, no gallop. SKIN: Color normal, no rash, warm, dry, intact. EXTREMITIES: Normal appearance, no pedal edema. NEURO: Alert and answering questions appropriately, calm but became tearful during exam. PSYCH: Normal affect. Const Vital Signs: 05/10/24 19:53 Temperature 96.9 F L Temperature Source Temporal Pulse Rate 94 Respiratory Rate 15 Blood Pressure 181/108 H Blood Pressure Mean 132 Pulse Ox 100 Oxygen Delivery Method Room Air Physical Exam Const Vital Signs: 05/10/24 19:53 Temperature 96.9 F L Temperature Source Temporal Pulse Rate 94 Respiratory Rate 15 Blood Pressure 181/108 H Blood Pressure Mean 132 Pulse Ox 100 Oxygen Delivery Method Room Air MDM MDM MDM Narrative Medical decision making narrative: History gathered from: Patient, brother, friend 48 year old male presents requesting detox. He is reticent to provide details and cannot tell me exactly what drugs he is using. He reports feeling burnt out and depressed but is not suicidal or h omicidal. His friend and brother arrived who states they want him to detox in the hospital before they plan to take him to a longer term addiction treatment facility in [place]. Patient's blood work and urine drug screen was obtained to see what substances he is on and if these would require detox. CBC is unremarkable. CMP shows glucose of 266, otherwise normal. Alcohol level is negative. Lab Data Attestation: I reviewed the patient's lab results. Labs: Laboratory Results - last 24 hr 05/10/24 05/10/24 20:30 21:42 WBC 8.5 RBC 5.23 Hgb 14.9 Hct 42.6 MCV 81.5 MCH 28.5 MCHC 35.0 RDW Std Deviation 34.4 L RDW Coeff of Cornell 11.7 Plt Count 225 MPV 9.7 Immature Gran % (Auto) 0.200 Neut % (Auto) 60.9 Lymph % (Auto) 29.9 [place] % (Auto) 7.1 Eos % (Auto) 1.3 Baso % (Auto) 0.6 Absolute Neuts (auto) 5.2 Absolute Lymphs (auto) 2.54 Nucleated RBC % 0 Sodium 136 Potassium 3.7 Chloride 102 Carbon Dioxide 26.0 Anion Gap 8 BUN 15 Creatinine 0.90 Estim Creat Clear Calc 119.06 Est GFR (MDRD) Af Amer 117 Est GFR (MDRD) Non-Af 96 BUN/Creatinine Ratio 16.7 Glucose 266 H Calcium 9.1 Total Bilirubin 0.60 AST 12 L ALT 22 Alkaline Phosphatase 78 Total Protein 7.2 Albumin 3.5 Globulin 3.7 Albumin/Globulin Ratio 0.9 Urine Opiates Screen NEGATIVE Urine Methadone Screen NEGATIVE Ur Barbiturates Screen NEGATIVE Ur Phencyclidine Scrn NEGATIVE Ur Amphetamines Screen NEGATIVE MDMA (Ecstasy) Screen NEGATIVE U Benzodiazepines Scrn NEGATIVE Urine Cocaine Screen NEGATIVE U Cannabinoids Screen POSITIVE H Ur Drug Screen Comment Ethyl Alcohol < 3.0 MDM Lab (more content not included)... Normal [facility] Eosinophil percentageOrdered By: Thuy Amador on 05-10-2024 Eosinophils/100 WBC (Bld) 1.3 % 0-5 [facility] Erythrocyte distribution wid th ratioOrdered By: Thuy Amador on 05-10-2024 Erythrocyte distribution width (RBC) [Ratio] 11.7 % 11.6-14.6 [facility] Erythrocyte distribution wid th standard deviationOrdered By: Thuy Amador on 05-10-2024 Erythrocyte distribution width (RBC) [Entitic vol] 34.4 fL Low 35.1-43.9 [facility] Estimated glomerular filtrat ion rate (GFR) AmericanOrdered By: Thuy Amador on 05-10-2024 Estimated GFR (MDRD) Amer 117 mL/min >60 [facility] Comment on above: GFR Calc Estimation of creatinine shameka aranceOrdered By: Thuy Amador on 05-10-2024 Estimated Creatinine Clearance Calc 119.06 ml/min [facility] Glomerular filtration rate ( GFR) estimationOrdered By: Thuy Amador on 05-10-2024 Estimated GFR (MDRD) Non-Af Amer 96 mL/min >60 [facility] Comment on above: Non- GFR Calc Glucose measurementOrdered B y: Thuy Amador on 05-10-2024 Glucose [Mass/Vol] 266 mg/dL High 74-106 [facility] Comment on above: Glucose result great er than or equal to 200 mg/dLsuggests DIABETES MELLITUS per A.D.A. criteria. Hematocrit Auto (Bld) [Volum e fraction]Ordered By: Thuy Amador on 05-10-2024 Hematocrit (Bld) [Volume fraction] 42.6 % 40-54 [facility] Hemoglobin measurementOrdere d By: hTuy Amador on 05-10-2024 Hemoglobin (Bld) [Mass/Vol] 14.9 g/dL 13.0-16. 5 [facility] Immature granulocytes/100 WB C Auto (Bld)Ordered By: Thuy Amador on 05-10-2024 Immature granulocytes/100 WBC (Bld) 0.200 % 0.0-0.9 [facility] Comment on above: IG% - Immature Granu locytes (promyelocytes, myelocytes and metamyelocytes) > 1% indicates that a LEFT SHIFT is Present. Laboratory - Chemistry and C hemistry - challengeOrdered By: Thuy Amador on 05-10-2024 AST [Catalytic activity/Vol] 12 U/L Low 15-37 [facility] Lymphocytes Auto (Unsp spec) [#/Vol]Ordered By: Thuy Amador on 05-10-2024 Lymphocytes (Bld) [#/Vol] 2.54 10*3/uL 0.83-4.5 1 [facility] Lymphocytes/100 WBC Auto (Un sp spec)Ordered By: Thuy Amador on 05-10-2024 Lymphocytes/100 WBC (Bld) 29.9 % 19-41 [facility] MCV (mean corpuscular volume ) determinationOrdered By: Thuy Amador on 05-10-2024 MCV (RBC) [Entitic vol] 81.5 fL 80-[address] [facility] Mean corpuscular hemoglobin (MCH) determinationOrdered By: Thuy Amador on 05-10-2024 MCH (RBC) [Entitic mass] 28.5 pg 27.0-32.0 [facility] Mean corpuscular hemoglobin concentration (MCHC) determinationOrdered By: Thuy Amador on 05-10-2024 MCHC (RBC) [Mass/Vol] 35.0 g/dL 32-36 [facility] Mean platelet volume determi nationOrdered By: Thuy Amador on 05-10-2024 Platelet mean volume (Bld) [Entitic vol] 9.7 fL 6.2-12.0 [facility] Methadone, urineOrdered By: Thuy Amador on 05-10-2024 Urine Methadone Screen Negative < 300 ng/mL [facility] Monocyte percentageOrdered B y: Thuy Amador on 05-10-2024 Monocytes/100 WBC (Bld) 7.1 % 0-[address] [facility] Neutrophil percentageOrdered By: Thuy Amador on 05-10-2024 Neutrophils/100 WBC (Bld) 60.9 % 47-70 [facility] No Panel InformationOrdered By: Thuy Amador on 05-10-2024 Urine Drug Screen Comment [facility] Comment on above: CONFIRMATORY TESTING FOR ALL POSITIVE URINE DRUG SCREENRESULTS WILL ONLY BE SENT OUT UPON PHYSICIAN ORDER. VISTA Urine Drug Screen methods provide only preliminaryanalytical test results. A more specific alternate chemicalmethod must be used in order to obtain a confirmedanalytical result. Gas chromatography/mass spectrometery(GC/MS) is the preferred confirmatory method. Clinicalconsideration and professional judgement should be appliedto any drug of abuse test result, particularly whenpreliminary positive results are used. URINE TCA TESTING MUST BE ORDERED SEPARATELY. USE TESTMNEMONIC: [facility] Nucleated red blood cell per centageOrdered By: Thuy Amador on 05-10-2024 Nucleated RBC/100 WBC (Bld) [Ratio] 0 % 0-5 [facility] Platelet countOrdered By: Sandy Amador on 05-10-2024 Platelets (Bld) [#/Vol] 225 10*3/uL 150-450 [facility] Potassium measurementOrdered By: Thuy Amador on 05-10-2024 Potassium [Moles/Vol] 3.7 mmol/L 3.5-5.1 [facility] Quantitative urine opiates m easurementOrdered By: Thuy Amador on 05-10-2024 Opiates Ql (U) Negative < 300 ng/mL [facility] RBC Auto (Bld) [#/Vol]Ordere d By: Thuy Amador on 05-10-2024 RBC (Bld) [#/Vol] 5.23 10*6/uL 4.6-6.2 [facility] Serum anion gap measurementO rdered By: Thuy Amador on 05-10-2024 Anion gap [Moles/Vol] 8 mmol/L 5-15 [facility] Serum ethanol measurementOrd ered By: Thuy Amador on 05-10-2024 Ethyl Alcohol Level < 3.0 mg/dL [facility] Comment on above: The serum:whole bloo d ethanol ratio is approximately 1.14and varies slightly with hematocrit. Medical Alcohol reference interval and critical value innon-tolerant individuals; 50 - 100 Impairment 100 Intoxication 100 - 250 Severe Poisoning 250 - 400 Deep/possible fatal coma Serum globulin measurementOr dered By: Thuy Amador on 05-10-2024 Globulin (S) [Mass/Vol] 3.7 g/dL 2.2-4.[address] [facility] Serum or plasma alanine newman otransferase (ALT) measurementOrdered By: Thuy Amador on 05-10-2024 ALT [Catalytic activity/Vol] 22 U/L 16-61 [facility] Serum or plasma albumin stephane urement (mass/volume)Ordered By: Thuy Amador on 05-10-2024 Albumin [Mass/Vol] 3.5 g/dL 3.2-5.0 [facility] Serum or plasma alkaline margarito sphatase measurementOrdered By: Thuy Amador on 05-10-2024 ALP [Catalytic activity/Vol] 78 U/L 45-117 [facility] Serum or plasma calcium stephane urement (mass/volume)Ordered By: Thuy Amador on 05-10-2024 Calcium [Mass/Vol] 9.1 mg/dL 8.5-10.1 [facility] Serum or plasma creatinine m easurement (mass/volume)Ordered By: Thuy Amador on 05-10-2024 Creatinine [Mass/Vol] 0.90 mg/dL 0.70-1.30 [facility] Comment on above: The validity of the calculated GFR & GFRAA in patients over 70 years has not been determined. Clinical correlation is essential. Serum or plasma urea nitroge n measurement (mass/volume)Ordered By: Thuy Amador on 05-10-2024 Urea nitrogen [Mass/Vol] 15 mg/dL 7-18 [facility] Sodium levelOrdered By: Thuy Amador on 12-29-2024 Sodium [Moles/Vol] 136 mmol/L 136-145 [facility] Total proteinOrdered By: Nichole Amador on 05-10-2024 Protein [Mass/Vol] 7.2 g/dL 6.4-8.2 [facility] Urine Drug Screen (VISTA)on 05-10-2024 AMPHETAMINES Negative Normal <1000 ng/mL [facility] Comment on above: Performed By: #### L 501.9100, L505.5000, L100.0100, L500.4050 #### [facility] [address] [place], [address] BARBITIURATES Negative Normal < 200 ng/mL [facility] Comment on above: Performed By: #### L 501.9100, L505.5000, L100.0100, L500.4050 #### [facility] [address] [facility] [address] BENZODIAZIPINE Negative Normal < 200 ng/mL [facility] Comment on above: Performed By: #### L 501.9100, L505.5000, L100.0100, L500.4050 #### [facility] [address] [place], [address] COCAINE Negative Normal < 300 ng/mL [facility] Comment on above: Performed By: #### L 501.9100, L505.5000, L100.0100, L500.4050 #### [facility] [address] [place], [address] ECSTACY Negative Normal < 500 ng/mL [facility] Comment on above: Performed By: #### L 501.9100, L505.5000, L100.0100, L500.4050 #### [facility] [address] [place], [address] METHADONE Negative Normal < 300 ng/mL [facility] Comment on above: Performed By: #### L 501.9100, L505.5000, L100.0100, L500.4050 #### [facility] [address] [place], [address] OPIATES Negative Normal < 300 ng/mL [facility] Comment on above: Performed By: #### L 501.9100, L505.5000, L100.0100, L500.4050 #### [facility] [address] [place], [address] PCP Negative Normal < 25 ng/mL [facility] Comment on above: Performed By: #### L 501.9100, L505.5000, L100.0100, L500.4050 #### [facility] [address] [place], [address] THC Positive Abnormal < 50 ng/mL [facility] Comment on above: Performed By: #### L 501.9100, L505.5000, L100.0100, L500.4050 #### [facility] [address] [place], [address] VISTA UDS PH 5 Normal [facility] Comment on above: Performed By: #### L 501.9100, L505.5000, L100.0100, L500.4050 #### [facility] [address] [place], [address] Urine amphetamine measuremen tOrdered By: Thuy Amador on 05-10-2024 Amphetamines Ql (U) Negative <1000 ng/mL [facility] Urine barbiturates measureme ntOrdered By: Thuy Amador on 05-10-2024 Urine Barbiturates Screen Negative < 200 ng/mL [facility] Urine benzodiazepine levelOr dered By: Thuy Amador on 05-10-2024 Benzodiazepines Ql (U) Negative < 200 ng/mL [facility] Urine cocaine levelOrdered B y: Thuy Amador on 05-10-2024 Cocaine Ql (U) Negative < 300 ng/mL [facility] Urine knrus-6-krvocgwpyltibe abinol (THC) measurementOrdered By: Thuy Amador on 05-10-2024 Cannabinoids Screen Ql (U) Positive High < 50 ng/m L [facility] Urine methylenedioxymethamph etamine (MDMA) measurementOrdered By: Thuy Amador on 05-10-2024 MDMA (Ecstasy) Screen Negative < 500 ng/mL [facility] Urine phencyclidine (PCP) de tectionOrdered By: Thuy Amador on 05-10-2024 Phencyclidine Ql (U) Negative < 25 ng/mL [facility] White blood cell (WBC) count Ordered By: Thuy Amador on 05-10-2024 WBC (Bld) [#/Vol] 8.5 10*3/uL 4.4-11.0 [facility] Vital Signs Date Time Vital Sign Value Performing Clinician Keyon fontanez 01-15-2025 18:11-0400 Body height 167.64 cm No Primary Care Physician [facility] 01-15-2025 18:11-0400 Body mass index (BMI) [Ratio] 37.8 kg/m2 No Primary Care Physician [facility] 01-15-2025 18:11-0400 Body temperature 97.7 [degF] No Primary Care Physician [facility] 01-15-2025 18:11-0400 Body weight 106.14 kg No Primary Care Physician [facility] 01-15-2025 18:11-0400 Diastolic blood pressure 105 mm[Hg] No Primary Care Physician [facility] 01-15-2025 18:11-0400 Heart rate 101 /min No Primary Care Physician [facility] 01-15-2025 18:11-0400 Respiratory rate 16 /min No Primary Care Physician [facility] 01-15-2025 18:11-0400 SaO2% (BldA) [Mass fraction] 100 % No Primary Care Physician [facility] 01-15-2025 18:11-0400 Systolic blood pressure 183 mm[Hg] No Primary Care Physician [facility] 08-06-2024 21:12-0400 Diastolic blood pressure 79 mm[Hg] No Primary Care Physician [facility] 08-06-2024 21:12-0400 Heart rate 89 /min No Primary Care Physician [facility] 08-06-2024 21:12-0400 Respiratory rate 16 /min No Primary Care Physician [facility] 08-06-2024 21:12-0400 SaO2% (BldA) [Mass fraction] 98 % No Primary Care Physician [facility] 08-06-2024 21:12-0400 Systolic blood pressure 138 mm[Hg] No Primary Care Physician [facility] 08-06-2024 19:12-0400 Body height 167.64 cm No Primary Care Physician [facility] 08-06-2024 19:12-0400 Body mass index (BMI) [Ratio] 38.8 kg/m2 No Primary Care Physician [facility] 08-06-2024 19:12-0400 Body temperature 97 [degF] No Primary Care Physician [facility] 08-06-2024 19:12-0400 Body weight 109.1 kg No Primary Care Physician [facility] 05-11-2024 09:51-0500 Diastolic blood pressure 89 mm[Hg] No Primary Care Physician [facility] 05-11-2024 09:51-0500 Heart rate 78 /min No Primary Care Physician [facility] 05-11-2024 09:51-0500 Respiratory rate 16 /min No Primary Care Physician [facility] 05-11-2024 09:51-0500 SaO2% (BldA) [Mass fraction] 99 % No Primary Care Physician [facility] 05-11-2024 09:51-0500 Systolic blood pressure 163 mm[Hg] No Primary Care Physician [facility] 05-10-2024 19:53-0500 Body mass index (BMI) [Ratio] 41.4 kg/m2 No Primary Care Physician [facility] 05-10-2024 19:53-0500 Body temperature 96.9 [degF] No Primary Care Physician [facility] 05-10-2024 19:53-0500 Body weight 112.94 kg No Primary Care Physician [facility] 08-05-2022 19:54-0400 Body mass index (BMI) [Ratio] 44.5 kg/m2 [facility] 08-05-2022 19:54-0400 Body weight 121.5 kg [facility] 08-05-2022 19:35-0400 Body height 165.1 cm [facility] 08-05-2022 19:35-0400 Body temperature 99 [degF] [facility] 08-05-2022 19:35-0400 Diastolic blood pressure 94 mm[Hg] [facility] 08-05-2022 19:35-0400 Heart rate 69 /min [facility] 08-05-2022 19:35-0400 Respiratory rate 15 /min [facility] 08-05-2022 19:35-0400 SaO2% (BldA) [Mass fraction] 98 % [facility] 08-05-2022 19:35-0400 Systolic blood pressure 141 mm[Hg] [facility] Encounters Encounter Date Encounter Type Care Provider Facility Start: 01-15-2025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
[2025-01-16 00:59] LABS: Mucous, Urine 1+ /hpf (<or=2+); Squamous Epithelial Cells - UA 0-5 SEEN /hpf (0-5)
[2025-01-16 01:06] LABS: Anion Gap 10 (5-15); BUN 16 mg/dL (4-19); BUN/Creat Ratio 18.4 RATIO (10-20); Calcium,Total 9.2 mg/dL (7.6-11.0); Carbon Dioxide 25.4 mmol/L (21.0-32.0); Chloride 102 mmol/L (98-108); Estimated Creatinine Clearance 122.69 ml/min (50-250); Glucose 152 mg/dL (70-99); Potassium 4.2 mmol/L (3.3-5.1)
[2025-01-16 01:44] VITALS: BP 176/92; PULSE 81; RESP 17; O2SAT 99
[2025-01-16 03:00] VITALS: BP 162/84; PULSE 72; RESP 18; TEMP 36.6; O2SAT 96
--- NOTE | 2025-01-16 03:30 | ED.RN ---
This RN educated the patient on the discharge instructions, all questions answered. The patient then asked to stay in the room until someone can come pick him up. This RN asked the patient if the patient could be actively looking for a ride home, the patient stated that he did not have a phone with him. This RN informed the patient that the waiting room had a phone that he could use to call for a ride, the patient then responded saying that he did not know who he would call at this time of night. This RN informed the charge nurse and hospital security of the patient's wishes to stay in the room, this RN was informed that the patient was homeless. KRISTOPHER Mercado went into the patient's room and the patient informed the patient that he was going to get a ride home with Yoly from [facility]. KRISTOPHER Mercado came back to the nurses' station and called Yoly, Yoly stated that she did not agree to bring the patient home nor did she want to. Immediately after this conversation, the patient came past the nurses' station, asking for a phone to use to call for a ride. This RN asked if there was a number that I could call for him. The patient responded saying I don't know any numbers. KRISTOPHER Mercado directed the patient to the waiting room phone if he needed but that he might struggle to call people without their phone numbers. The patient rolled his eyes, turned to the exit, and stated, fuck this, I am fucking leaving, you guys cannot even help me, so this is ridiculous. The patient was seen on camera walking half way down the ramp, then the patient turned around and sat down on the bench in between the ambulance bay and ED entrance. KRISTOPHER Mercado and this RN went outside to inform the patient that he cannot sleep on the benches. The patient greeted us at the ambulance entrance and stated I can't fucking stay here, it's too cold. KRISTOPHER Mercado stated that the patient cannot sleep on the benches. The patient stated, then fuck it, I'll just walk home. The patient was seen ambulating down the ramp off of hospital property. Hospital security notified.
== END 2025-01-16 03:19 | disposition home or self-care (01) ==
PROVIDERS: Emergency Provider Emergency Medicine; Visit Provider Emergency Medicine
DX: R40.4 Transient alteration of awareness (principal); F15.10 Other stimulant abuse, uncomplicated; Z59.00 Homelessness unspecified; Z87.891 Personal history of nicotine dependence
CPT/HCPCS: 70450; 71045; 80048; 81001; 85025; 93005; 99282; A4216

== ENCOUNTER 2025-02-12 21:43 | Emergency (ER) | payer SELFPAY ==
[2025-02-12 21:51] VITALS: BP 164/95; PULSE 79; RESP 18; TEMP 36.3; O2SAT 100; BMI 38.8
--- NOTE | 2025-02-12 23:07 | EDS_ITS ---
HPI <Dr. Samson Abraham MD - Last Filed: 02/12/25 23:12> HPI - Psych History of Present Illness Chief Complaint: Mental Health Informant: patient Onset/Context/Timing Onset: Days Context: Gradual Onset Timing: Continuous Current Severity: Mild Maximum Severity: Mild Associated Symptoms Associated Symptoms - Psych: Positive for Depressed and Hopelessness; Negative for Threatening, Confusion, Paranoia, Visual Hallucinations or Auditory Hallucinations Specific plan (suicidal thought): Patient denies. Narrative Narrative: 49-year-old male history of anxiety depression, diabetes and prior drug abuse. I believe he was admitted to a psychiatric facility 1 to 2 weeks ago. States he just feels hopeless depressed. He denies being suicidal or homicidal. Denies any attempts. He was seen here in the last several weeks had a CAT scan and labs are all unremarkable. Prior similar symptoms: Yes Recent Illness/Hospitalization: Yes PFSH <Dr. Samson Abraham MD - Last Filed: 02/12/25 23:12> PFSH Medical History HTN (hypertension) Diabetic acidosis, type II Anxiety Depression Drug use Home Medications ?Medication ?Instructions ?Recorded ?Last Taken ?Type glimepiride 2 mg tablet 2 mg PO DAILY 02/12/25 Unkno wn History lisinopril 5 mg tablet 5 mg PO DAILY 02/12/25 Unkno wn History Allergy/AdvReac Type Severity Reaction Status Date / Time No Known Allergies Allergy Verified 02/12/25 21:49 Social History household members: children housing: apartment Smoking Status: Former smoker substance use type: marijuana ROS <Dr. Samson Abraham MD - Last Filed: 02/12/25 23:12> ROS ED ROS Narrative Denies recent illness. Constitutional Constitutional ED: Denies chills or fever(s) Eyes Eyes: Denies blurry vision ENT ENT ED: Denies ear pain Cardiovascular Cardiovascular: Denies chest pain Respiratory/Chest Respiratory/Chest: Denies cough or dyspnea Gastrointestinal Gastrointestinal: Denies abdominal pain, diarrhea, nausea or vomiting Genitourinary Genitourinary ED: Denies dysuria or hematuria Musculoskeletal Musculoskeletal: Denies arthralgias Integumentary Denies abscess Neurologic Neurologic: Denies headache(s) Psychiatric Psychiatric: Reports anxiety and depression Endocrine Endocrinology: Denies polydipsia, polyphagia or polyuria Hematologic/Lymphatic Hematologic/Lymphatic: Denies easy bleeding, easy bruising or lymphadenopathy Allergic/Immunologic Allergic/Immunologic ED: Denies mouth swelling, tongue swelling or urticaria EXAM <Dr. Samson Abraham MD - Last Filed: 02/12/25 23:12> Physical Exam Narrative Exam Narrative: Well appearing middle-age male. Vital signs stable afebrile. Pulse ox 100% on room air no signs of hypoxia. No distress. H EENT exam pupils round react light. Moist mucous membranes. No trauma to face or scalp. Neck nontender no lymphadenopathy. No trauma. Back nontender. Lungs clear to auscultation bilaterally. Heart regular rhythm rate about 80 no murmur. Chest wall and ribs nontender. Abdomen soft nontender. Moving all 4 extremities. 5 out of 5 qualitative field coordinator strength. Dorsi plantarflexion intact. No track portillo. Normal range of motion. Neurologically he is awake alert. He is answering questions following commands. Emotionally he is depressed but he does make eye contact. He will not answer questions. Const Vital Signs: 02/12/25 21:51 02/12/25 23:45 02/13/25 01:00 Temperature 97.3 F L Temperature Source Temporal Pulse Rate 79 73 81 Respiratory Rate 18 16 16 Blood Pressure 164/95 H 138/112 H 138/74 H Blood Pressure Mean 118 120 95 Pulse Ox 100 97 99 Oxygen Delivery Method Room Air Room Air Positive well nourished and well developed; Negative for cachectic, contractures or unkempt General Appearance ED: well developed and NAD; Negative for unkempt, cachectic, contractures or pallor Nutritional Appearance: Negative for cachectic HEENT Reports moist mucous membranes normocephalic and atraumatic; Negative for trauma or tenderness Eyes PERRL and EOMs intact bilaterally General Eye ED: Negative for pale conjunctiva or scleral icterus Neck no lymphadenopathy, supple and no JVD General: Negative for tenderness Resp normal respiratory effort and clear to auscultation bilaterally Cardio S1 normal heart sound, S2 normal heart sound and no murmurs Rate: regular rate Rhythm: regular rhythm GI non-tender, non-distended and no masses Auscultation: normoactive bowel sounds Palpation: soft; Negative for tender or guarding Back/Spine no CVA tenderness General Back: Negative for CVA tenderness Cervical Spine: Negative for cervical spine tenderness Thoracic Spine / Upper Back: Negative for thoracic spinal tenderness Lumbar Spine / Lower Back: Negative for lumbar spinal tenderness Extremity normal to inspection General Extremety ED: Negative for edema or tenderness General Extremity: Negative for edema Neuro oriented x3, CN's II-XII intact bilaterally and no sensory deficits noted Sensorium / Orientation: alert, oriented to person, oriented to place and oriented to time Motor Exam: strength 5/5 throughout Psych mental status grossly normal, thought process normal, cooperative, speech normal, activity/motor behavior normal, denies hallucinations, denies homicidal ideation and denies suicidal ideation Appearance: grossly normal, appropriate and well kempt; Negative for unkempt Attitude: calm and engaged Activity / Motor Behavior: appropriate eye contact Speech: normal speech Mood & Affect: depressed and sad Thought Process: normal thought process Thought Content: normal thought content Attention / Concentration: attention grossly intact Memory / Cognition: memory grossly intact Insight: fair Judgement: fair Skin General Skin Exam: Negative for jaundice or pallor Lesions: no lesions Rashes: no rashes <Dr. Davonte Mendiola MD - Last Filed: 02/13/25 02:14> Physical Exam Const Vital Signs: 02/12/25 21:51 02/12/25 23:45 02/13/25 01:00 Temperature 97.3 F L Temperature Source Temporal Pulse Rate 79 73 81 Respiratory Rate 18 16 16 Blood Pressure 164/95 H 138/112 H 138/74 H Blood Pressure Mean 118 120 95 Pulse Ox 100 97 99 Oxygen Delivery Method Room Air Room Air MDM <Dr. Samson Abraham MD - Last Filed: 02/12/25 23:12> MDM MDM Narrative Medical decision making narrative: 49-year-old male depressed. At least 2 more admit to me at this time that he is suicidal. He is get a benign exam. There is no signs of toxidrome. He will undergo ED mental health labs and crisis evaluation. History & Record Review Discussion w/independent historian: Patient Additional record(s) reviewed:: Prior inpatient record, Prior outpatient record, Prior ED visit and Prior labs Lab Data Attestation: I reviewed the patient's lab results. Labs: Laboratory Results - last 24 hr 02/12/25 23:30 WBC 7.7 RBC 4.92 Hgb 14.1 Hct 41.8 MCV 85.0 MCH 28.7 MCHC 33.7 RDW Std Deviation 36.6 RDW Coeff of [place] 12.0 Plt Count 257 MPV 9.7 Immature Gran % (Auto) 0.300 Neut % (Auto) 57.9 Lymph % (Auto) 32.6 [place] % (Auto) 6.6 Eos % (Auto) 2.1 Baso % (Auto) 0.5 Absolute Neuts (auto) 4.5 Absolute Lymphs (auto) 2.51 Nucleated RBC % 0 Sodium 138 Potassium 3.8 Chloride 100 Carbon Dioxide 27.0 Anion Gap 11 BUN 16 Creatinine 0.88 Estim Creat Clear Calc 116.37 Est GFR (MDRD) Non-Af 107 BUN/Creatinine Ratio 17.9 Glucose 115 H Calcium 9.6 Urine Opiates Screen NEGATIVE U Buprenorphine Qual NEGATIVE Ur Oxycodone Screen NEGATIVE Urine Methadone Screen NEGATIVE Urine Fentanyl Screen NEGATIVE Ur Barbiturates Screen NEGATIVE Ur Phencyclidine Scrn NEGATIVE Ur Amphetamines Screen NEGATIVE U Benzodiazepines Scrn NEGATIVE Urine Cocaine Screen NEGATIVE U Cannabinoids Screen PRESUMPTIVE POSITIVE Ethyl Alcohol < 10.1 <Dr. Davonte Mendiola MD - Last Filed: 02/13/25 02:14> [facility] Lab Data Labs: Laboratory Results - last 24 hr 02/12/25 23:30 WBC 7.7 RBC 4.92 Hgb 14.1 Hct 41.8 MCV 85.0 MCH 28.7 MCHC 33.7 RDW Std Deviation 36.6 RDW Coeff of [place] 12.0 Plt Count 257 MPV 9.7 Immature Gran % (Auto) 0.300 Neut % (Auto) 57.9 Lymph % (Auto) 32.6 [place] % (Auto) 6.6 Eos % (Auto) 2.1 Baso % (Auto) 0.5 Absolute Neuts (auto) 4.5 Absolute Lymphs (auto) 2.51 Nucleated RBC % 0 Sodium 138 Potassium 3.8 Chloride 100 Carbon Dioxide 27.0 Anion Gap 11 BUN 16 Creatinine 0.88 Estim Creat Clear Calc 116.37 Est GFR (MDRD) Non-Af 107 BUN/Creatinine Ratio 17.9 Glucose 115 H Calcium 9.6 Urine Opiates Screen NEGATIVE U Buprenorphine Qual NEGATIVE Ur Oxycodone Screen NEGATIVE Urine Methadone Screen NEGATIVE Urine Fentanyl Screen NEGATIVE Ur Barbiturates Screen NEGATIVE Ur Phencyclidine Scrn NEGATIVE Ur Amphetamines Screen NEGATIVE U Benzodiazepines Scrn NEGATIVE Urine Cocaine Screen NEGATIVE U Cannabinoids Screen PRESUMPTIVE POSITIVE Ethyl Alcohol < 10.1 Treatment and Re-Evaluation Narrative: I took over care of this patient at shift change. Crisis evaluated, patient has suicidal ideation he is concerned about his safety of going home, and he has a plan. They opted for placement and the patient voluntarily wants to be placed. At this time pending acceptance at facility. He is medically cleared. Discharge Plan Triage Chief Complaint: Mental Health Other Complaint: Anxiety ED Provider: Samson Abraham Dx/Rx/DC Orders Clinical Impression: Depression, Suicidal ideation Instructions: ED Depression Prescriptions: No Action glimepiride 2 mg tablet 2 mg PO DAILY lisinopril 5 mg tablet 5 mg PO DAILY Primary Care Provider: Care Physician,No Primary Print Language: Ethiopian Disposition Disposition: Psychiatric Hospital or Unit
--- OUTSIDE RECORDS SUMMARY | 2025-02-12 23:41 | XMS RPT_ITS | CCD ---
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 Phone: LABORATORYOrdered By: SYSTEM SYSTEM on 02-05-2025 Albumin BCP dye [Mass/Vol] 3.7 G/dL Normal 3 .2 - 4.8 G/dL ADM SS Albumin/Globulin [Mass ratio] 1.1 {ratio} Normal 0.9 - 1.6 ratio ADM SS ALP [Catalytic activity/Vol] 68 U/L Normal 38 - 126 U/L ADM SS ALT No additional P-5'-P [Catalytic activity/Vol] 25 U/L Normal 12 - 55 U/L ADM SS AST [Catalytic activity/Vol] 23 U/L Normal 8 - 34 U/L ADM SS Bili Indirect 0.4 mg/dL Normal 0.1 - 10.0 mg/dL Chemistry S Bilirubin [Mass/Vol] 0.50 mg/dL Normal 0.20 - 1.20 mg/dL ADM SS Comment on above: Interpretive Data: U se of this assay is not recommended for patients undergoing treatment with eltrombopag due to the potential for falsely elevated results. Bilirubin.conjugated [Mass/Vol] 0.1 mg/dL Normal 0.0 - 0.4 mg/dL ADM SS Comment on above: Interpretive Data: U se of this assay is not recommended for patients undergoing treatment with eltrombopag due to the potential for falsely elevated results. Calcium [Mass/Vol] 9.9 mg/dL Normal 8.7 - 10. 4 mg/dL AH ADM SS Chloride [Moles/Vol] 101 mmol/L Normal 98 - 11 0 mEq/L ADM SS CO2 [Moles/Vol] 26 mmol/L Normal 22 - 32 mEq/L AH ADM SS Creatinine [Mass/Vol] 0.84 mg/dL Normal 0.60 - 1.40 mg/dL ADM SS Comment on above: Interpretive Data: T esting performed on Gazemetrix analyzer using enzymatic creatinine methodology. Electrolyte Balance 13.0 mEq/L Normal 4.0 - 15 .0 mEq/L ADM SS Estimated Glomerular Filtration Rate 108 ml/min/1.73sqm Invalid Interpretation Code Chemistry S Comment on above: Interpretive Data: Stages of Chronic Kidney Disease (CKD) Stage Description eGFR(ml/min/1.73 sq.m.) CKD 1 Normal kidney function or >=90 normal kindney function with possible kidney damage (ex. Proteinuria) CKD 2 Kidney damage with mild loss 60-89 of kidney function CKD 3a Mild to moderate loss of kidney 45-59 function CKD 3b Moderate to severe loss of 30-44 of kindey function CKD 4 Severe loss of kidney function 15-29 CKD 5 Kidney failure <15 Note: (go live 2024) the eGFR calculation was updated to the 2020 CKD-EPI creatinine equation without a race factor to calculate the eGFR results. Globulin 3.4 G/dL Normal 2.5 - 4.2 G/dL ADM SS Glucose [Mass/Vol] 163 mg/dL High 70 - 110 mg/dL ADM SS Magnesium [Mass/Vol] 1.8 mg/dL Normal 1.6 - 2 .4 mg/dL ADM SS Potassium [Moles/Vol] 4.2 mmol/L Normal 3.5 - 5.0 mEq/L ADM SS Protein [Mass/Vol] 7.1 G/dL Normal 5.7 - 8.2 G/dL ADM SS Sodium [Moles/Vol] 140 mmol/L Normal 136 - 145 mEq/L AH ADM SS Urea nitrogen [Mass/Vol] 13.0 mg/dL Normal 8.0 - 22.0 mg/dL AH ADM SS Urea nitrogen/Creatinine [Mass ratio] 15.5 ratio Normal 10.0 - 22.0 ratio AH ADM SS Basophils (Bld) [#/Vol] 0.1 103/mcL Normal 0.0 - 0.3 10^3/mcL AH Workflow SS Basophils/100 WBC (Bld) 0.8 % Normal 0.0 - 2.5 % AH Workflow SS Eosinophils (Bld) [#/Vol] 0.1 103/mcL Normal 0. 0 - 0.7 10^3/mcL AH Workflow SS Eosinophils/100 WBC (Bld) 1.8 % Normal 0. 0 - 6.0 % AH Workflow SS Erythrocyte distribution width (RBC) [Ratio] 13.4 % Normal 11.5 - 15.5 % AH Workflow SS Hematocrit (Bld) [Volume fraction] 40.8 % Normal 40.0 - 52.0 % AH Workflow SS Hemoglobin (Bld) [Mass/Vol] 14.0 G/dL Normal 13.0 - 17.5 G/dL AH Workflow SS Lymphocytes (Bld) [#/Vol] 1.6 103/mcL Normal 0. 9 - 4.3 10^3/mcL AH Workflow SS Lymphocytes/100 WBC (Bld) 21.7 % Normal 20 .0 - 40.0 % AH Workflow SS MCH (RBC) [Entitic mass] 28.9 pg Normal 27. 0 - 33.0 pg AH Workflow SS MCHC 34.2 G/dL Normal 32.0 - 36.0 G/dL AH Workflow SS MCV (RBC) [Entitic vol] 84.5 fL Normal 81.0 - 100.0 fL AH Workflow SS Monocytes (Bld) [#/Vol] 0.5 103/mcL Normal 0.1 - 1.4 10^3/mcL AH Workflow SS Monocytes/100 WBC (Bld) 6.6 % Normal 2.0 - 13.0 % AH Workflow SS Neutrophils (Bld) [#/Vol] 5.0 103/mcL Normal 2. 3 - 8.1 10^3/mcL AH Workflow SS Neutrophils/100 WBC (Bld) 69.1 % Normal 50 .0 - 75.0 % AH Workflow SS Platelet mean volume (Bld) [Entitic vol] 8.9 fL Normal 6.4 - 10.5 fL AH Workflow SS Platelets (Bld) [#/Vol] 273 103/mcL Normal 150 - 450 10^3/mcL AH Workflow SS RBC (Bld) [#/Vol] 4.83 106/mcL Normal 4.50 - 6.00 10^6/mcL AH Workflow SS WBC (Bld) [#/Vol] 7.2 103/mcL Normal 4.5 - 10.8 10^3/mcL AH Workflow SS MGon 02-05-2025 Magnesium [Mass/Vol] 1.8 mg/dL Normal 1.6-2.4 [facility] Comment on above: Order Comment: Blood Hemolyzed 02/05/2025 09:38:36 EDT Performed By: #### B MP, GFR, ANEU, ADIFF, MG, CBC, HFP #### [place] [address] QUANTTBon 02-05-2025 QFT Criteria Comment [facility] MAIN Comment on above: Result Comment: QuantiFERON-TB Gold Plus is a qualitative indirect test for M tuberculosis infection (including disease) and is intended for use in conjunction with risk assessment, radiography, and other medical and diagnostic evaluations. The QuantiFERON-TB Gold Plus result is determined by subtracting the Nil value from either TB antigen (Ag) value. The Mitogen tube serves as a control for the test. Performed By: #### B MP, GFR, ANEU, ADIFF, MG, CBC, HFP #### [place] [address] QFT Mitogen Value >10.00 [facility] MAIN Comment on above: Performed By: #### B MP, GFR, ANEU, ADIFF, MG, CBC, HFP #### [place] [address] QFT Nil Value 0.02 IU/mL [facility] MAIN Comment on above: Performed By: #### B MP, GFR, ANEU, ADIFF, MG, CBC, HFP #### [place] [address] QFT TB1 Ag Value 0.04 IU/mL [facility] MAIN Comment on above: Performed By: #### B MP, GFR, ANEU, ADIFF, MG, CBC, HFP #### [address] [address] QFT TB2 Ag Value 0.03 IU/mL Normal [facility] MAIN Comment on above: Performed By: #### B MP, GFR, ANEU, ADIFF, MG, CBC, HFP #### [address] [address] QFT-TB Gold Plus Clt Inc Negative Normal Negative [facility] MAIN Comment on above: Result Comment: No r esponse to M tuberculosis antigens detected. Infection with M tuberculosis is unlikely, but high risk individuals should be considered for additional testing (ATS/IDSA/CDC Clinical Practice Guidelines, 2017). The reference range is an Antigen minus Nil result of <0.35 IU/mL. The specimen received for QuantiFERON testing was incubated by the ordering institution. Specific procedures outlined in our Directory of Services and in the package insert for the QuantiFERON Gold (In Tube) test must be followed to enable for proper stimulation of cells for the production of interferon gamma. Chemiluminescence immunoassay methodology Performed At: [email or web address] [place] [address] [place], [place] [id number] Viktoriya Sabillon PhD Ph:[phone] Performed By: #### B MP, GFR, ANEU, ADIFF, MG, CBC, HFP #### [address] [address] TOXGon 02-05-2025 Toxo gondii IgG Ab <3.0 Normal 0.0-7.1 [facility] MAIN Comment on above: Result Comment: Nega tive <7.2 Equivocal 7.2 - 8.7 Positive >8.7 Performed At: [place] [id number] [place], [place] [id number] Viktoriya Sabillon PhD Ph:[phone] Performed By: #### B MP, GFR, ANEU, ADIFF, MG, CBC, HFP #### [address] [address] TOXMon 02-05-2025 Toxo gondii IgM <3.0 Normal 0.0-7.9 [facility] Comment on above: Result Comment: Nega tive <8.0 Equivocal 8.0 - 9.9 Positive >9.9 Performed At: [facility] [address] [place], [place] [id number] Viktoriya Sabillon PhD Ph:[phone] Performed By: #### B MP, GFR, ANEU, ADIFF, MG, CBC, HFP #### [address] [address] VDRLon 02-05-2025 VDRL CSF Non-Reactive Normal Non [place]:<1:1 [facility] MAIN Comment on above: Result Comment: Perf ormed At: [address] [id number] Kelvin Caba MD Ph:[phone] Performed By: #### B MP, GFR, ANEU, ADIFF, MG, CBC, HFP #### [place] [address] B1WBon 02-04-2025 Vitamin B1 Whl Bld 121.0 nmol/L Normal 66.5-200.0 [facility] MAIN Comment on above: Result Comment: This test was developed and its performance characteristics determined by [facility]. It has not been cleared or approved by the Food and Drug Administration. Performed At: [address] [id number] Kelvin Caba MD Ph:[phone] Performed By: #### C DEBORAHCT, BFPR #### [place] [address] BFPRon 02-04-2025 Body Fluid Path Review Normal [facility] MAIN Comment on above: Order Comment: Added by Discern Result Comment: Nega tive for malignant cells. No cells identified. (This evaluation is based on a screening review of one cytospin slide prepared primarily for differential cell count; if clinical index of suspicion is high, Cytology evaluation is recommended, as clinically indicated) Electronically signed by: BAILEY PARKER 02.04.2025 11:38 EDT Performed By: #### C SFCT, BFPR #### [address] [address] Non-Continuous Improvement Specialist Cytology Reporton Non-Continuous Improvement Specialist Cytology Report . Pathology Reports Accession: Collected Date/Time: Received Date/Time: Pathologist: [id number] 02/02/2025 15:15 EDT 02/03/2025 13:37 EDT BAILEY PARKER MD Non-Continuous Improvement Specialist Cytology Report CLINICAL INFORMATION: AMS DIAGNOSTIC CATEGORY: NEGATIVE FOR MALIGNANCY. No cells identified. SPECIMEN: Cerebrospinal Fluid GROSS DESCRIPTION: # of Monolayers: 1 cytospin fixed slide Verified by Pathology Report verified by [facility] Screened by: [place] Electronically signed by BAILEY PARKER Sign-Out Date: 02/04/2025 10:44 Performing Lab: [facility], [address] [place] [address] Pathology Dept Disclaimer If ancillary studies were utilized, the following Laboratory Developed Test (LDT) disclaimer will apply: Under CLIA requirements, [facility] Pathology Laboratory is qualified to perform high complexity testing. For all ancillary stains, positive and negative controls stain appropriately. Performance characteristics of immunohistochemical and chromogenic in-situ hybridization tests have been determined by [facility] Pathology Laboratory. These tests are used for clinical purposes, They should not be regarded as investigational or for research. Normal [facility] RPRon 02-04-2025 Reagin Ab RPR Ql (S) Non-Reactive Normal Non-[place] cti ve [facility] MAIN Comment on above: Result Comment: The RPR test is a non-treponemal assay useful as an aid in the diagnosis of primary and secondary syphilis. It converts to positive generally within 2 weeks after the appearance of a lesion. This test is also useful for monitoring response to antibiotic therapy. False positive RPR tests may occur in 1) patients with underlying autoimmune disorders, 2) elderly patients, 3) , and 4) other conditions with abnormal serum globulins. Performed By: #### B MP, GFR, ANEU, ADIFF, MG, CBC, HFP #### [address] [address] .Auto Diffon 02-03-2025 Basophil, Absolute 0.1 10 3/mcL Normal 0.0-0.3 [facility] MAIN Comment on above: Performed By: #### B MP, GFR, ANEU, ADIFF, MG, CBC, HFP #### [address] [address] Basophils/100 WBC (Bld) 1.1 % Normal 0.0-2.5 [facility] MAIN Comment on above: Performed By: #### B MP, GFR, ANEU, ADIFF, MG, CBC, HFP #### [address] [address] Eosinophil, Absolute 0.1 10 3/mcL Normal 0.0-0.7 [facility] Comment on above: Performed By: #### B MP, GFR, ANEU, ADIFF, MG, CBC, HFP #### [address] [address] Eosinophils/100 WBC (Bld) 1.5 % Normal 0.0-6.0 [facility] Comment on above: Performed By: #### B MP, GFR, ANEU, ADIFF, MG, CBC, HFP #### [address] [address] Lymphocyte, Absolute 1.9 10 3/mcL Normal 0.9-4.3 [facility] Comment on above: Performed By: #### B MP, GFR, ANEU, ADIFF, MG, CBC, HFP #### [address] [address] Lymphocytes/100 WBC (Bld) 24.0 % Normal 20.0-40.0 [facility] Comment on above: Performed By: #### B MP, GFR, ANEU, ADIFF, MG, CBC, HFP #### [address] [address] Monocyte, Absolute 0.4 10 3/mcL Normal 0.1-1.4 [facility] Comment on above: Performed By: #### B MP, GFR, ANEU, ADIFF, MG, CBC, HFP #### [address] [address] Monocytes/100 WBC (Bld) 5.6 % Normal 2.0-13.0 [facility] Comment on above: Performed By: #### B MP, GFR, ANEU, ADIFF, MG, CBC, HFP #### [address] [address] Neutrophils/100 WBC (Bld) 67.8 % Normal 50.0-75.0 [facility] Comment on above: Performed By: #### B MP, GFR, ANEU, ADIFF, MG, CBC, HFP #### [place] [id number] .GFRon 02-03-2025 Estimated Glomerular Filtration Rate 110 ml/min/1.73sqm Normal [facility] MA[facility] Comment on above: Result Comment: Stages of Chronic Kidney Disease (CKD) Stage Description eGFR(ml/min/1.73 sq.m.) CKD 1 Normal kidney function or >=90 normal kindney function with possible kidney damage (ex. Proteinuria) CKD 2 Kidney damage with mild loss 60-89 of kidney function CKD 3a Mild to moderate loss of kidney 45-59 function CKD 3b Moderate to severe loss of 30-44 of kindey function CKD 4 Severe loss of kidney function 15-29 CKD 5 Kidney failure <15 Note: (go live 2024) the eGFR calculation was updated to the 2020 CKD-EPI creatinine equation without a race factor to calculate the eGFR results. Performed By: #### B MP, GFR, ANEU, ADIFF, MG, CBC, HFP #### [place] [address] .Morphon 02-03-2025 Platelet Estimate Normal Normal [facility] MAIN Comment on above: Performed By: #### B MP, GFR, ANEU, ADIFF, MG, CBC, HFP #### [place] [address] RBC morphology finding Nom (Bld) Normal Normal [facility] MAIN Comment on above: Performed By: #### B MP, GFR, ANEU, ADIFF, MG, CBC, HFP #### [place] [id number] .NEUABSon 02-03-2025 Neutrophil, Absolute 5.3 10 3/mcL Normal 2.3-8.1 [facility] Comment on above: Performed By: #### B MP, GFR, ANEU, ADIFF, MG, CBC, HFP #### [place] [address] CBCon 02-03-2025 Platelet 206 10 3/mcL Normal 150-450 [facility] MAIN Comment on above: Performed By: #### B MP, GFR, ANEU, ADIFF, MG, CBC, HFP #### [place] [address] Platelet mean volume (Bld) [Entitic vol] 8.1 fL Normal 6.4-10.5 [facility] MAIN Comment on above: Performed By: #### B MP, GFR, ANEU, ADIFF, MG, CBC, HFP #### [place] [address] Erythrocyte distribution width (RBC) [Ratio] 12.7 % Normal 11.5-15.5 [facility] MA[facility] Comment on above: Performed By: #### B MP, GFR, ANEU, ADIFF, MG, CBC, HFP #### [place] [address] Hematocrit (Bld) [Volume fraction] 38.8 % Low 40.0-52.0 [facility] MA[facility] Comment on above: Performed By: #### B MP, GFR, ANEU, ADIFF, MG, CBC, HFP #### [place] [address] Hgb 13.3 G/dL Normal 13.0-17.5 [facility] MA[facility] Comment on above: Performed By: #### B MP, GFR, ANEU, ADIFF, MG, CBC, HFP #### [place] [address] MCH (RBC) [Entitic mass] 28.7 pg Normal 27.0-33.0 [facility] MA[facility] Comment on above: Performed By: #### B MP, GFR, ANEU, ADIFF, MG, CBC, HFP #### [place] [address] MCHC 34.2 G/dL Normal 32.0-36.0 [facility] MA[facility] Comment on above: Performed By: #### B MP, GFR, ANEU, ADIFF, MG, CBC, HFP #### [place] [address] MCV (RBC) [Entitic vol] 84.1 fL Normal 81.0-100.0 [facility] MAIN Comment on above: Performed By: #### B MP, GFR, ANEU, ADIFF, MG, CBC, HFP #### [place] [id number] RBC 4.62 10 6/mcL Normal 4.50-6.00 [facility] Comment on above: Performed By: #### B MP, GFR, ANEU, ADIFF, MG, CBC, HFP #### [place] [address] WBC 7.8 10 3/mcL Normal 4.5-10.8 [facility] Comment on above: Performed By: #### B MP, GFR, ANEU, ADIFF, MG, CBC, HFP #### [place] [address] CMPon 02-03-2025 Albumin Level 3.4 G/dL Normal 3.2-4.8 [facility] Comment on above: Performed By: #### B MP, GFR, ANEU, ADIFF, MG, CBC, HFP #### [place] [address] Albumin/Globulin [Mass ratio] 1.0 {ratio} Normal 0.9-1.6 [facility] MA[facility] Comment on above: Performed By: #### B MP, GFR, ANEU, ADIFF, MG, CBC, HFP #### [place] [address] ALP [Catalytic activity/Vol] 67 U/L Normal 38-126 [facility] MAIN Comment on above: Performed By: #### B MP, GFR, ANEU, ADIFF, MG, CBC, HFP #### [place] [address] ALT [Catalytic activity/Vol] 24 U/L Normal 12-55 [facility] MAIN Comment on above: Performed By: #### B MP, GFR, ANEU, ADIFF, MG, CBC, HFP #### [place] [address] AST [Catalytic activity/Vol] 25 U/L Normal 8-34 [facility] MA[facility] Comment on above: Performed By: #### B MP, GFR, ANEU, ADIFF, MG, CBC, HFP #### [place] [address] Bili Total 0.20 mg/dL Normal 0.20-1.20 [facility] MAIN Comment on above: Result Comment: Use of this assay is not recommended for patients undergoing treatment with eltrombopag due to the potential for falsely elevated results. Performed By: #### B MP, GFR, ANEU, ADIFF, MG, CBC, HFP #### [place] [address] BUN/Creatinine Ratio 10.1 ratio Normal 10.0-22.0 [facility] MAIN Comment on above: Performed By: #### B MP, GFR, ANEU, ADIFF, MG, CBC, HFP #### [place] [id number] Calcium [Mass/Vol] 9.4 mg/dL Normal 8.7-10.4 [facility] MAIN Comment on above: Performed By: #### B MP, GFR, ANEU, ADIFF, MG, CBC, HFP #### [place] [id number] Chloride [Moles/Vol] 102 mmol/L Normal 98-110 [facility] MAIN Comment on above: Performed By: #### B MP, GFR, ANEU, ADIFF, MG, CBC, HFP #### [place] [id number] CO2 [Moles/Vol] 26 mmol/L Normal 22-32 [facility] MAIN Comment on above: Performed By: #### B MP, GFR, ANEU, ADIFF, MG, CBC, HFP #### [place] [address] Creatinine [Mass/Vol] 0.79 mg/dL Normal 0.60-1.40 [facility] Comment on above: Result Comment: Test ing performed on Gazemetrix analyzer using enzymatic creatinine methodology. Performed By: #### B MP, GFR, ANEU, ADIFF, MG, CBC, HFP #### [place] [address] Electrolyte Balance 9.0 mEq/L Normal 4.0-15.0 [facility] MAIN Comment on above: Performed By: #### B MP, GFR, ANEU, ADIFF, MG, CBC, HFP #### [address] [address] Globulin 3.3 G/dL Normal 2.5-4.2 [facility] MAIN Comment on above: Performed By: #### B MP, GFR, ANEU, ADIFF, MG, CBC, HFP #### [address] [address] Glucose [Mass/Vol] 256 mg/dL High 70-110 [facility] MAIN Comment on above: Performed By: #### B MP, GFR, ANEU, ADIFF, MG, CBC, HFP #### [address] [address] Potassium [Moles/Vol] 4.1 mmol/L Normal 3.5-5.0 [facility] Comment on above: Performed By: #### B MP, GFR, ANEU, ADIFF, MG, CBC, HFP #### [address] [address] Sodium [Moles/Vol] 137 mmol/L Normal 136-145 [facility] MAIN Comment on above: Performed By: #### B MP, GFR, ANEU, ADIFF, MG, CBC, HFP #### [address] [address] Total Protein 6.7 G/dL Normal 5.7-8.2 [facility] MA[facility] Comment on above: Performed By: #### B MP, GFR, ANEU, ADIFF, MG, CBC, HFP #### [address] [address] Urea nitrogen [Mass/Vol] 8.0 mg/dL Normal 8.0-22.0 [facility] MA[facility] Comment on above: Performed By: #### B MP, GFR, ANEU, ADIFF, MG, CBC, HFP #### [address] [address] CUSon 02-03-2025 Copper Lvl 91 UG/DL Normal 69-132 [facility] MAIN Comment on above: Result Comment: This test was developed and its performance characteristics determined by [facility]. It has not been cleared or approved by the Food and Drug Administration. Detection Limit = 5 Performed At: [address] [id number] Kelvin Caba MD Ph:[phone] Performed By: #### B MP, GFR, ANEU, ADIFF, MG, CBC, HFP #### [address] [address] HIVon 02-03-2025 HIV 1/2 Ab Non-Reactive Normal Non-Reacti [facility] MAIN Comment on above: Result Comment: Spec imen is negative for anti-HIV-1 and anti-HIV-2. Performed By: #### B MP, GFR, ANEU, ADIFF, MG, CBC, HFP #### [address] [address] LABORATORYOrdered By: SYSTEM SYSTEM on 02-03-2025 Albumin BCP dye [Mass/Vol] 3.4 G/dL Normal 3 .2 - 4.8 G/dL ADM SS Albumin/Globulin [Mass ratio] 1.0 {ratio} Normal 0.9 - 1.6 ratio AH ADM SS ALP [Catalytic activity/Vol] 67 U/L Normal 38 - 126 U/L ADM SS ALT No additional P-5'-P [Catalytic activity/Vol] 24 U/L Normal 12 - 55 U/L AH ADM SS AST [Catalytic activity/Vol] 25 U/L Normal 8 - 34 U/L ADM SS Basophils (Bld) [#/Vol] 0.1 103/mcL Normal 0.0 - 0.3 10^3/mcL Workflow SS Basophils/100 WBC (Bld) 1.1 % Normal 0.0 - 2.5 % Workflow SS Bilirubin [Mass/Vol] 0.20 mg/dL Normal 0.20 - 1.20 mg/dL AH ADM SS Comment on above: Interpretive Data: U se of this assay is not recommended for patients undergoing treatment with eltrombopag due to the potential for falsely elevated results. Calcium [Mass/Vol] 9.4 mg/dL Normal 8.7 - 10. 4 mg/dL ADM SS Chloride [Moles/Vol] 102 mmol/L Normal 98 - 11 0 mEq/L ADM SS CO2 [Moles/Vol] 26 mmol/L Normal 22 - 32 mEq/L ADM SS Creatinine [Mass/Vol] 0.79 mg/dL Normal 0.60 - 1.40 mg/dL ADM SS Comment on above: Interpretive Data: T esting performed on [employer] CH analyzer using enzymatic creatinine methodology. Electrolyte Balance 9.0 mEq/L Normal 4.0 - 15 .0 mEq/L ADM SS Eosinophils (Bld) [#/Vol] 0.1 103/mcL Normal 0. 0 - 0.7 10^3/mcL Workflow SS Eosinophils/100 WBC (Bld) 1.5 % Normal 0. 0 - 6.0 % Workflow SS Erythrocyte distribution width (RBC) [Ratio] 12.7 % Normal 11.5 - 15.5 % Workflow SS Estimated Glomerular Filtration Rate 110 ml/min/1.73sqm Invalid Interpretation Code Chemistry S Comment on above: Interpretive Data: Stages of Chronic Kidney Disease (CKD) Stage Description eGFR(ml/min/1.73 sq.m.) CKD 1 Normal kidney function or >=90 normal kindney function with possible kidney damage (ex. Proteinuria) CKD 2 Kidney damage with mild loss 60-89 of kidney function CKD 3a Mild to moderate loss of kidney 45-59 function CKD 3b Moderate to severe loss of 30-44 of kindey function CKD 4 Severe loss of kidney function 15-29 CKD 5 Kidney failure <15 Note: (go live 2024) the eGFR calculation was updated to the 2020 CKD-EPI creatinine equation without a race factor to calculate the eGFR results. Globulin 3.3 G/dL Normal 2.5 - 4.2 G/dL ADM SS Glucose [Mass/Vol] 256 mg/dL High 70 - 110 mg/dL ADM SS Hematocrit (Bld) [Volume fraction] 38.8 % Low 40.0 - 52.0 % Workflow SS Hemoglobin (Bld) [Mass/Vol] 13.3 G/dL Normal 13.0 - 17.5 G/dL Workflow SS Lymphocytes (Bld) [#/Vol] 1.9 103/mcL Normal 0. 9 - 4.3 10^3/mcL Workflow SS Lymphocytes/100 WBC (Bld) 24.0 % Normal 20 .0 - 40.0 % Workflow SS Magnesium [Mass/Vol] 1.9 mg/dL Normal 1.6 - 2 .4 mg/dL ADM SS MCH (RBC) [Entitic mass] 28.7 pg Normal 27. 0 - 33.0 pg AH Workflow SS MCHC 34.2 G/dL Normal 32.0 - 36.0 G/dL AH Workflow SS MCV (RBC) [Entitic vol] 84.1 fL Normal 81.0 - 100.0 fL AH Workflow SS Monocytes (Bld) [#/Vol] 0.4 103/mcL Normal 0.1 - 1.4 10^3/mcL AH Workflow SS Monocytes/100 WBC (Bld) 5.6 % Normal 2.0 - 13.0 % AH Workflow SS Neutrophils (Bld) [#/Vol] 5.3 103/mcL Normal 2. 3 - 8.1 10^3/mcL AH Workflow SS Neutrophils/100 WBC (Bld) 67.8 % Normal 50 .0 - 75.0 % AH Workflow SS Platelet mean volume (Bld) [Entitic vol] 8.1 fL Normal 6.4 - 10.5 fL AH Workflow SS Platelets (Bld) [#/Vol] 206 103/mcL Normal 150 - 450 10^3/mcL AH Workflow SS Platelets LM Ql (Bld) Normal *NA* (02/03/25 2:56 PM) Invalid Interpretation Code Workflow SS Potassium [Moles/Vol] 4.1 mmol/L Normal 3.5 - 5.0 mEq/L ADM SS Protein [Mass/Vol] 6.7 G/dL Normal 5.7 - 8.2 G/dL ADM SS RBC (Bld) [#/Vol] 4.62 106/mcL Normal 4.50 - 6.00 10^6/mcL Workflow SS RBC morphology finding Nom (Bld) Normal *NA* (02/03/25 2:56 PM) Invalid Interpretation Code Workflow SS Sodium [Moles/Vol] 137 mmol/L Normal 136 - 145 mEq/L ADM SS Urea nitrogen [Mass/Vol] 8.0 mg/dL Normal 8.0 - 22.0 mg/dL ADM SS Urea nitrogen/Creatinine [Mass ratio] 10.1 ratio Normal 10.0 - 22.0 ratio ADM SS WBC (Bld) [#/Vol] 7.8 103/mcL Normal 4.5 - 10.8 10^3/mcL Workflow SS LABORATORYOrdered By: LABCOR P CONTRIBUTOR_SYSTEM on 02-03-2025 QFT Criteria (LC) Comment Invalid Interpretation Code Sendouts SS Comment on above: Result Comment: QuantiFERON-TB Gold Plus is a qualitative indirect test for M tuberculosis infection (including disease) and is intended for use in conjunction with risk assessment, radiography, and other medical and diagnostic evaluations. The QuantiFERON-TB Gold Plus result is determined by subtracting the Nil value from either TB antigen (Ag) value. The Mitogen tube serves as a control for the test. QFT Mitogen Value (LC) Int unit/mL Invalid Interpretation Code AH Sendouts SS QFT Nil Value (LC) 0.02 Int unit/mL Invalid Interpretation Code AH Sendouts SS QFT TB1 Ag Value (LC) 0.04 Int unit/mL Invalid Interpretation Code AH Sendouts SS QFT TB2 Ag Value (LC) 0.03 Int unit/mL Invalid Interpretation Code AH Sendouts SS QFT-TB Gold Plus Clt Inc (LC) Negative Invalid Interpretation Code Negative AH Sendouts SS Comment on above: Result Comment: No r esponse to M tuberculosis antigens detected. Infection with M tuberculosis is unlikely, but high risk individuals should be considered for additional testing (ATS/IDSA/CDC Clinical Practice Guidelines, 2017). The reference range is an Antigen minus Nil result of <0.35 IU/mL. The specimen received for QuantiFERON testing was incubated by the ordering institution. Specific procedures outlined in our Directory of Services and in the package insert for the QuantiFERON Gold (In Tube) test must be followed to enable for proper stimulation of cells for the production of interferon gamma. Chemiluminescence immunoassay methodology Performed At: [address] [id number] Viktoriya Sabillon PhD Ph:[phone] Toxo gondii IgG Ab (LC) Int unit/mL Invalid Interpretation Code 0.0-7.1 [facility] Comment on above: Result Comment: Nega tive <7.2 Equivocal 7.2 - 8.7 Positive >8.7 Performed At: [address] [id number] Viktoriya Sabillon PhD Ph:[phone] Toxo gondii IgM (LC) Au/mL Invalid Interpretation Code 0.0-7.9 [facility] Comment on above: Result Comment: Nega tive <8.0 Equivocal 8.0 - 9.9 Positive >9.9 Performed At: [address] [id number] Viktoriya Sabillon PhD Ph:[phone] Toxo Neg Comment (LC) Comment Invalid Interpretation Code Sendouts SS Comment on above: Result Comment: It is presumed the patient has not been infected with and is not undergoing an acute infection with Toxoplasma. If symptoms persist, submit a new specimen after three weeks. Performed At: [facility] [address] [place], [place] [id number] Viktoriya Sabillon PhD Ph:[phone] LABORATORYOrdered By: Carmina Mcallister on 02-03-2025 Reagin Ab RPR Ql (S) Non-Reactive 43 (02/03/25 2:56 PM) Normal Non-Reacti ve [facility] Viro/Sero SS Comment on above: Interpretive Data: T he RPR test is a non-treponemal assay useful as an aid in the diagnosis of primary and secondary syphilis. It converts to positive generally within 2 weeks after the appearance of a lesion. This test is also useful for monitoring response to antibiotic therapy. False positive RPR tests may occur in 1) patients with underlying autoimmune disorders, 2) elderly patients, 3) , and 4) other conditions with abnormal serum globulins. LABORATORYOrdered By: Valarie Irving on 02-03-2025 Syphilis Interpretation See Interp 54 *NA* (02/03/25 2:56 PM) Invalid Interpretation Code Chemistry S Comment on above: Result Comment: Clinical Interpretation: Negative for syphilis T. pallidum antibody; cannot exclude early primary syphilis. If syphilis infection is strongly suspected, retest in one month. T. pallidum Ab IA Ql (S) Non-Reactive (02/03/25 2:56 PM) Normal Non-Reacti ve [facility] LABORATORYOrdered By: Vanessa Vasquez on 02-03-2025 HIV 1+2 Ab IA Ql Non-Reactive (02/03/25 11:30 AM) Normal Non-Reacti ve [facility] HIV 1+2 Ab IA Ql Negative Invalid Interpretation Code Chemistry S MGon 02-03-2025 Magnesium [Mass/Vol] 1.9 mg/dL Normal 1.6-2.4 [facility] Comment on above: Performed By: #### B MP, GFR, ANEU, ADIFF, MG, CBC, HFP #### [place] [id number] RPRMon 02-03-2025 Reagin Ab RPR Ql (S) Non-Reactive [facility] Comment on above: Order Comment: Order ed by Discern Result Comment: The RPR test is a non-treponemal assay useful as an aid in the diagnosis of primary and secondary syphilis. It converts to positive generally within 2 weeks after the appearance of a lesion. This test is also useful for monitoring response to antibiotic therapy. False positive RPR tests may occur in 1) patients with underlying autoimmune disorders, 2) elderly patients, 3) , and 4) other conditions with abnormal serum globulins. Performed By: #### B MP, GFR, ANEU, ADIFF, MG, CBC, HFP #### [place] [address] SYPHRon 02-03-2025 Syphilis Non-Reactive Normal [facility] Comment on above: Performed By: #### S YPHR #### [place] [address] Syphilis Interpretation See [facility] Comment on above: Result Comment: Clinical Interpretation: Negative for syphilis T. pallidum antibody; cannot exclude early primary syphilis. If syphilis infection is strongly suspected, retest in one month. Performed By: #### S YPHR #### [place] [address] XR CHEST 2 VIEWSon XR CHEST 2 VIEWS ORIGINAL EXAMINATION: TWO XRAY VIEWS OF THE CHEST 02/03/2025 11:11 am COMPARISON: None. HISTORY: ORDERING SYSTEM PROVIDED HISTORY: Reason for Exam: PNEUMONIA FINDINGS: There is poor inspiratory effort. The lungs are without acute focal process. There is no effusion or pneumothorax. The cardiomediastinal silhouette is without acute process. The osseous structures are without acute process. IMPRESSION: No acute process. Interpreted by: Alessio Henderson DO Preliminary Report By: Alessio Henderson DO Electronically signed By Alessio Henderson DO Dictated Date: 02/03/2025 11:18:54 AM Prelim Date: 02/03/2025 11:19:17 AM Sign Date: 02/03/2025 11:19:17 AM Ordering Provider: CADE Lewis [facility] .Auto Diffon 02-02-2025 Basophil, Absolute 0.1 10 3/mcL Normal 0.0-0.3 [facility] Comment on above: Performed By: #### B MP, GFR, ANEU, ADIFF, MG, CBC, HFP #### [address] [address] Basophils/100 WBC (Bld) 0.8 % Normal 0.0-2.5 [facility] Comment on above: Performed By: #### B MP, GFR, ANEU, ADIFF, MG, CBC, HFP #### [address] [address] Eosinophil, Absolute 0.1 10 3/mcL Normal 0.0-0.7 [facility] Comment on above: Performed By: #### B MP, GFR, ANEU, ADIFF, MG, CBC, HFP #### [address] [address] Eosinophils/100 WBC (Bld) 1.4 % Normal 0.0-6.0 [facility] Comment on above: Performed By: #### B MP, GFR, ANEU, ADIFF, MG, CBC, HFP #### [address] [address] Lymphocyte, Absolute 1.7 10 3/mcL Normal 0.9-4.3 [facility] Comment on above: Performed By: #### B MP, GFR, ANEU, ADIFF, MG, CBC, HFP #### [address] [address] Lymphocytes/100 WBC (Bld) 22.9 % Normal 20.0-40.0 [facility] Comment on above: Performed By: #### B MP, GFR, ANEU, ADIFF, MG, CBC, HFP #### [address] [address] Monocyte, Absolute 0.4 10 3/mcL Normal 0.1-1.4 [facility] Comment on above: Performed By: #### B MP, GFR, ANEU, ADIFF, MG, CBC, HFP #### [address] [address] Monocytes/100 WBC (Bld) 5.1 % Normal 2.0-13.0 [facility] Comment on above: Performed By: #### B MP, GFR, ANEU, ADIFF, MG, CBC, HFP #### [address] [address] Neutrophils/100 WBC (Bld) 69.8 % Normal 50.0-75.0 [facility] Comment on above: Performed By: #### B MP, GFR, ANEU, ADIFF, MG, CBC, HFP #### [address] [address] .GFRon 02-02-2025 Estimated Glomerular Filtration Rate 110 ml/min/1.73sqm Normal [facility] Comment on above: Result Comment: Stages of Chronic Kidney Disease (CKD) Stage Description eGFR(ml/min/1.73 sq.m.) CKD 1 Normal kidney function or >=90 normal kindney function with possible kidney damage (ex. Proteinuria) CKD 2 Kidney damage with mild loss 60-89 of kidney function CKD 3a Mild to moderate loss of kidney 45-59 function CKD 3b Moderate to severe loss of 30-44 of kindey function CKD 4 Severe loss of kidney function 15-29 CKD 5 Kidney failure <15 Note: (go live 2024) the eGFR calculation was updated to the 2020 CKD-EPI creatinine equation without a race factor to calculate the eGFR results. Performed By: #### B MP, GFR, ANEU, ADIFF, MG, CBC, HFP #### [address] [address] .NEUABSon 02-02-2025 Neutrophil, Absolute 5.1 10 3/mcL Normal 2.3-8.1 [facility] Comment on above: Performed By: #### B MP, GFR, ANEU, ADIFF, MG, CBC, HFP #### [address] [address] ANAIFSon 02-02-2025 Antinuclear Ab Screen Negative Normal Negative [facility] Comment on above: Result Comment: Anti -nuclear antibody test is used as an aid in diagnosis of systemic autoimmune diseases. Where positive and clinically warranted, follow-up using disease-specific testing is recommended. Low positive titers are not uncommon with advanced age, certain chronic infections, and malignancies among others. Test methodology: Indirect fluorescence immunoassay (IFA) using HEp-2 cells. Performed By: [facility] [address] [place] [address] [employer] Director: Valente Escamilla III, M.D. CLIA#: [id number] Performed By: #### C SFCT, BFPR #### [place] [address] CBCon 02-02-2025 Erythrocyte distribution width (RBC) [Ratio] 12.9 % Normal 11.5-15.5 [facility] Comment on above: Performed By: #### B MP, GFR, ANEU, ADIFF, MG, CBC, HFP #### [place] [address] Hematocrit (Bld) [Volume fraction] 42.0 % Normal 40.0-52.0 [facility] Comment on above: Performed By: #### B MP, GFR, ANEU, ADIFF, MG, CBC, HFP #### [place] [address] Hgb 14.4 G/dL Normal 13.0-17.5 [facility] Comment on above: Performed By: #### B MP, GFR, ANEU, ADIFF, MG, CBC, HFP #### [place] [id number] MCH (RBC) [Entitic mass] 28.7 pg Normal 27.0-33.0 [facility] Comment on above: Performed By: #### B MP, GFR, ANEU, ADIFF, MG, CBC, HFP #### [place] [id number] MCHC 34.4 G/dL Normal 32.0-36.0 [facility] Comment on above: Performed By: #### B MP, GFR, ANEU, ADIFF, MG, CBC, HFP #### [place] [address] MCV (RBC) [Entitic vol] 83.5 fL Normal 81.0-100.0 [facility] Comment on above: Performed By: #### B MP, GFR, ANEU, ADIFF, MG, CBC, HFP #### [place] [address] Platelet 288 10 3/mcL Normal 150-450 [facility] Comment on above: Performed By: #### B MP, GFR, ANEU, ADIFF, MG, CBC, HFP #### [place] [address] Platelet mean volume (Bld) [Entitic vol] 7.5 fL Normal 6.4-10.5 [facility] Comment on above: Performed By: #### B MP, GFR, ANEU, ADIFF, MG, CBC, HFP #### [place] [address] RBC 5.03 10 6/mcL Normal 4.50-6.00 [facility] Comment on above: Performed By: #### B MP, GFR, ANEU, ADIFF, MG, CBC, HFP #### [place] [address] WBC 7.3 10 3/mcL Normal 4.5-10.8 [facility] Comment on above: Performed By: #### B MP, GFR, ANEU, ADIFF, MG, CBC, HFP #### [place] [address] CCP 02-02-2025 Anti-CCP Ab, IgG/IgA 8 units Normal 0-19 [facility] Comment on above: Result Comment: Nega tive <20 Weak positive 20 - 39 Moderate positive 40 - 59 Strong positive >59 Performed At: [facility] [address] [place], [place] [id number] Viktoriya Sabillon PhD Ph:[phone] Performed By: #### B MP, GFR, ANEU, ADIFF, MG, CBC, HFP #### [place] [address] CMPon 02-02-2025 Albumin Level 3.7 G/dL Normal 3.2-4.8 [facility] Comment on above: Performed By: #### B MP, GFR, ANEU, ADIFF, MG, CBC, HFP #### [place] [address] Albumin/Globulin [Mass ratio] 1.1 {ratio} Normal 0.9-1.6 [facility] Comment on above: Performed By: #### B MP, GFR, ANEU, ADIFF, MG, CBC, HFP #### [place] [address] ALP [Catalytic activity/Vol] 73 U/L Normal 38-126 [facility] Comment on above: Performed By: #### B MP, GFR, ANEU, ADIFF, MG, CBC, HFP #### [place] [address] ALT [Catalytic activity/Vol] 18 U/L Normal 12-55 [facility] Comment on above: Performed By: #### B MP, GFR, ANEU, ADIFF, MG, CBC, HFP #### [place] [address] AST [Catalytic activity/Vol] 20 U/L Normal 8-34 [facility] Comment on above: Performed By: #### B MP, GFR, ANEU, ADIFF, MG, CBC, HFP #### [place] [address] Bili Total 0.50 mg/dL Normal 0.20-1.20 [facility] Comment on above: Result Comment: Use of this assay is not recommended for patients undergoing treatment with eltrombopag due to the potential for falsely elevated results. Performed By: #### B MP, GFR, ANEU, ADIFF, MG, CBC, HFP #### [place] [address] BUN/Creatinine Ratio 12.5 ratio Normal 10.0-22.0 [facility] Comment on above: Performed By: #### B MP, GFR, ANEU, ADIFF, MG, CBC, HFP #### [place] [address] Calcium [Mass/Vol] 10.0 mg/dL Normal 8.7-10.4 [facility] Comment on above: Performed By: #### B MP, GFR, ANEU, ADIFF, MG, CBC, HFP #### [address] [address] Chloride [Moles/Vol] 100 mmol/L Normal 98-110 [facility] Comment on above: Performed By: #### B MP, GFR, ANEU, ADIFF, MG, CBC, HFP #### [address] [address] CO2 [Moles/Vol] 30 mmol/L Normal 22-32 [facility] Comment on above: Performed By: #### B MP, GFR, ANEU, ADIFF, MG, CBC, HFP #### [address] [address] Creatinine [Mass/Vol] 0.80 mg/dL Normal 0.60-1.40 [facility] Comment on above: Result Comment: Test ing performed on Gazemetrix analyzer using enzymatic creatinine methodology. Performed By: #### B MP, GFR, ANEU, ADIFF, MG, CBC, HFP #### [address] [address] Electrolyte Balance 9.0 mEq/L Normal 4.0-15.0 [facility] Comment on above: Performed By: #### B MP, GFR, ANEU, ADIFF, MG, CBC, HFP #### [address] [address] Globulin 3.5 G/dL Normal 2.5-4.2 [facility] Comment on above: Performed By: #### B MP, GFR, ANEU, ADIFF, MG, CBC, HFP #### [address] [address] Glucose [Mass/Vol] 211 mg/dL High 70-110 [facility] Comment on above: Performed By: #### B MP, GFR, ANEU, ADIFF, MG, CBC, HFP #### [address] [address] Potassium [Moles/Vol] 4.4 mmol/L Normal 3.5-5.0 [facility] Comment on above: Performed By: #### B MP, GFR, ANEU, ADIFF, MG, CBC, HFP #### [address] [address] Sodium [Moles/Vol] 139 mmol/L Normal 136-145 [facility] Comment on above: Performed By: #### B MP, GFR, ANEU, ADIFF, MG, CBC, HFP #### [place] [address] Total Protein 7.2 G/dL Normal 5.7-8.2 [facility] Comment on above: Performed By: #### B MP, GFR, ANEU, ADIFF, MG, CBC, HFP #### [place] [address] Urea nitrogen [Mass/Vol] 10.0 mg/dL Normal 8.0-22.0 [facility] Comment on above: Performed By: #### B MP, GFR, ANEU, ADIFF, MG, CBC, HFP #### [place] [address] CSFCTon 02-02-2025 Cells Count CSF See Comment Invalid Interpretation Code [facility] Comment on above: Result Comment: No c ells identified Performed By: #### C SFCT, BFPR #### [place] [address] Clarity CSF Clear Normal [facility] Comment on above: Performed By: #### C SFCT, BFPR #### [place] [address] Color CSF Colorless Normal [facility] Comment on above: Performed By: #### C SFCT, BFPR #### [place] [address] Comment CSF See Below Normal [facility] Comment on above: Result Comment: Lact ic acid is not performed on CSF containing 5 or fewer WBC/mm3. Performed By: #### C SFCT, BFPR #### [place] [id number] RBC CSF 2 /mm3 High 0-1 [facility] Comment on above: Performed By: #### C SFCT, BFPR #### [place] [id number] WBC CSF <1 Normal 0-5 [facility] Comment on above: Performed By: #### C SFCT, BFPR #### [place] [address] DNAon 02-02-2025 Anti-dsDNA Antibodies <1 Normal 0-9 [facility] Comment on above: Result Comment: Nega tive <5 Equivocal 5 - 9 Positive >9 Performed At: [facility] [address] [place], [place] [id number] Viktoriya Sabillon PhD Ph:[phone] Performed By: #### B MP, GFR, ANEU, ADIFF, MG, CBC, HFP #### [place] [address] DRUGUon 02-02-2025 Amphetamine (u) Negative Normal Negative [facility] Comment on above: Performed By: #### B MP, GFR, ANEU, ADIFF, MG, CBC, HFP #### [place] [address] Barbiturate (u) Negative Normal Negative [facility] Comment on above: Performed By: #### B MP, GFR, ANEU, ADIFF, MG, CBC, HFP #### [place] [address] Benzodiazepine (u) Negative Normal Negative [facility] Comment on above: Performed By: #### B MP, GFR, ANEU, ADIFF, MG, CBC, HFP #### [place] [address] Cannabinoid (u) Negative [place] Negative [facility] Comment on above: Performed By: #### B MP, GFR, ANEU, ADIFF, MG, CBC, HFP #### [place] [address] Cocaine Ql (U) Negative Normal Negative [facility] Comment on above: Performed By: #### B MP, GFR, ANEU, ADIFF, MG, CBC, HFP #### [place] [address] Fentanyl (u) Negative Normal Negative [facility] Comment on above: Result Comment: Test ing has been performed FOR MEDICAL PURPOSES ONLY. Performed By: #### B MP, GFR, ANEU, ADIFF, MG, CBC, HFP #### [address] [address] Methadone Ql (U) Negative Normal Negative [facility] Comment on above: Performed By: #### B MP, GFR, ANEU, ADIFF, MG, CBC, HFP #### [address] [address] Opiate (u) Negative Normal Negative [facility] Comment on above: Performed By: #### B MP, GFR, ANEU, ADIFF, MG, CBC, HFP #### [place] [id number] Oxycodone (u) Negative Normal Negative [facility] Comment on above: Result Comment: Test ing has been performed FOR MEDICAL PURPOSES ONLY. Performed By: #### B MP, GFR, ANEU, ADIFF, MG, CBC, HFP #### [place] [id number] PCP (u) Negative Normal Negative [facility] Comment on above: Performed By: #### B MP, GFR, ANEU, ADIFF, MG, CBC, HFP #### [place] [id number] Propoxyphene (u) Negative Normal Negative [facility] Comment on above: Performed By: #### B MP, GFR, ANEU, ADIFF, MG, CBC, HFP #### [address] [address] U pH Drug Scrn 7.5 Normal 5.0-8.0 [facility] Comment on above: Performed By: #### B MP, GFR, ANEU, ADIFF, MG, CBC, HFP #### [place] [id number] Urine Drugs screened: See Below Normal [facility] Comment on above: Result Comment: This drug screen is a presumptive screening only. No confirmation will be performed unless requested. Drugs screened include: Threshold Amphetamines/Methamphetamines 1,000 ng/mL Barbiturates 200 ng/mL Benzodiazepine metabolites 200 ng/mL Cannabinoids (THC metabolites) 50 ng/mL Benzoylecognine (Cocaine metab) 300 ng/mL Opiates 300 ng/mL Phencyclidine (PCP) 25 ng/mL Methadone 300 ng/mL Propoxyphene 300 ng/mL Fentanyl 1.0 ng/mL Oxycodone 100 ng/mL Testing has been performed FOR MEDICAL PURPOSES ONLY. Performed By: #### B MP, GFR, ANEU, ADIFF, MG, CBC, HFP #### [address] [address] ENA1on 02-02-2025 Centromere <0.2 Normal <1.0 [facility] Comment on above: Result Comment: Anti -centromere antibody is used as in aid in diagnosis of systemic sclerosis. Clinical correlation is required. Test Methodology: Multiplex flow immunoassay. Performed By: [facility] [address] [place] [address] [employer] Director: Valente Escamilla III, M.D. CLIA#: [id number] Performed By: #### B MP, GFR, ANEU, ADIFF, MG, CBC, HFP #### [address] [address] Centromere Ab Qualitative Negative Normal Negative [facility] Comment on above: Result Comment: Perf ormed By: [facility] [address] [place] [address] [employer] Director: Valente Escamilla III, M.D. CLIA#: [id number] Performed By: #### B MP, GFR, ANEU, ADIFF, MG, CBC, HFP #### [address] [address] Chromatin Ab Qualitative Negative Normal Negative [facility] Comment on above: Result Comment: Perf ormed By: [facility] [address] [place] [address] [employer] Director: Valente Escamilla III, M.D. CLIA#: [id number] Performed By: #### B MP, GFR, ANEU, ADIFF, MG, CBC, HFP #### [address] [address] Chromatin Antibody <0.2 Normal <1.0 [facility] Comment on above: Result Comment: Test Methodology: Multiplex flow immunoassay. Anti-chromatin antibody is used as an aid in diagnosis of systemic lupus erythematosus. Clinical correlation is required. Test Methodology: Multiplex flow immunoassay. Performed By: [facility] [address] [place] [address] [employer] Director: Valente Escamilla III, M.D. CLIA#: [id number] Performed By: #### B MP, GFR, ANEU, ADIFF, MG, CBC, HFP #### [address] [address] SABIHA 1 Antibody <0.2 Normal <1.0 [facility] Comment on above: Result Comment: Perf ormed By: [place] [address] [employer] Director: Valente Escamilla III, M.D. CLIA#: [id number] Performed By: #### B MP, GFR, ANEU, ADIFF, MG, CBC, HFP #### [address] [address] SABIHA 1 Antibody Qual Negative Normal Negative [facility] Comment on above: Result Comment: Anti -SABIHA-1 antibody is used as an aid in diagnosis of polymyositis and dermatomyositis especially with pulmonary involvement. A negative result cannot rule out polymyositis or dermatomyositis. Clinical correlation is required. Test Methodology: Multiplex flow immunoassay. Performed By: [place] [address] [employer] Director: Valente Escamilla III, M.D. CLIA#: [id number] Performed By: #### B MP, GFR, ANEU, ADIFF, MG, CBC, HFP #### [address] [address] Ribosomal [employer] PROFESSOR <0.2 Normal <1.0 [facility] Comment on above: Result Comment: Perf ormed By: [place] [address] [employer] Director: Valente Escamilla III, M.D. CLIA#: [id number] Performed By: #### B MP, GFR, ANEU, ADIFF, MG, CBC, HFP #### [address] [address] Ribosomal [employer] PROFESSOR Qualitative Negative Normal Negative [facility] Comment on above: Result Comment: Anti -Ribosomal RNA (Ribosomal P) antibody is used as an aid in diagnosis of systemic autoimmune diseases especially systemic lupus erythematosus and mixed connective tissue disease. Cross-reactivity with Anti-mendez antibody is not uncommon. Clinical correlation is required. Test Methodology: Multiplex flow immunoassay. Performed By: [place] [address] [employer] Director: Valente Escamilla III, M.D. CLIA#: [id number] Performed By: #### B MP, GFR, ANEU, ADIFF, MG, CBC, HFP #### [address] [address] AFRICAN HISTORY PROFESSOR Antibody <0.2 Normal <1.0 [facility] Comment on above: Result Comment: Anti -AFRICAN HISTORY PROFESSOR antibody is used as an aid in diagnosis of systemic autoimmune diseases especially systemic lupus erythematosus and mixed connective tissue disease. Cross-reactivity with Anti-mendez antibody is not uncommon. Clinical correlation is required. Test Methodology: Multiplex flow immunoassay. Performed By: [place] [address] [employer] Director: Valente Escamilla III, M.D. CLIA#: [id number] Performed By: #### B MP, GFR, ANEU, ADIFF, MG, CBC, HFP #### [place] [id number] AFRICAN HISTORY PROFESSOR Antibody Qualitative Negative Normal Negative [facility] Comment on above: Result Comment: Perf ormed By: [place] [address] [employer] Director: Valente Escamilla III, M.D. CLIA#: [id number] Performed By: #### B MP, GFR, ANEU, ADIFF, MG, CBC, HFP #### [address] [address] Scleroderma Ab, IgG Qualitative Negative Normal Negative [facility] Comment on above: Result Comment: Perf ormed By: [place] [address] [employer] Director: Valente Escamilla III, M.D. CLIA#: [id number] Performed By: #### B MP, GFR, ANEU, ADIFF, MG, CBC, HFP #### [address] [address] Scleroderma IgG Ab <0.2 Normal <1.0 [facility] Comment on above: Result Comment: Scl- 70/Scleroderma antibody test is used as an aid in diagnosis of systemic sclerosis especially the diffuse cutaneous form. A negative result cannot rule out systemic sclerosis. The final interpretation should consider clinical picture and other test results such as anti-centromere antibody. Test Methodology: Multiplex flow immunoassay. Performed By: [place] [address] [employer] Director: Valente Escamilla III, M.D. CLIA#: [id number] Performed By: #### B MP, GFR, ANEU, ADIFF, MG, CBC, HFP #### [place] [id number] Sm Antibody <0.2 Normal <1.0 [facility] Comment on above: Result Comment: Perf ormed By: [place] [address] [employer] Director: Valente Escamilla III, M.D. CLIA#: [id number] Performed By: #### B MP, GFR, ANEU, ADIFF, MG, CBC, HFP #### [address] [address] Sm Antibody Qual Negative Normal Negative [facility] Comment on above: Result Comment: Anti -Sm (Mendez) antibody is used as an aid in diagnosis of systemic lupus erythematosus and its presence is associated with renal disease. A negative result cannot rule out systemic lupus erythematosus. Clinical correlation is required. Test Methodology: Multiplex flow immunoassay. Performed By: [place] [address] [employer] Director: Valente Escamilla III, M.D. CLIA#: [id number] Performed By: #### B MP, GFR, ANEU, ADIFF, MG, CBC, HFP #### [address] [address] SS-A Antibody <0.2 Normal <1.0 [facility] Comment on above: Result Comment: Test Methodology: Multiplex flow immunoassay. Anti-SSA (anti-Ro) antibody is used as an aid in diagnosis of a variety of systemic autoimmune diseases, Sjogren's syndrome among others. Clinical correlation is required. Test Methodology: Multiplex flow immunoassay. Performed By: [facility] [address] [place] [address] [employer] Director: Valente Escamilla III, M.D. CLIA#: [id number] Performed By: #### B MP, GFR, ANEU, ADIFF, MG, CBC, HFP #### [place] [id number] SS-B Antibody <0.2 Normal <1.0 [facility] Comment on above: Result Comment: Anti -SSB (anti-La) antibody is used as an aid in diagnosis of a variety of systemic autoimmune diseases, especially for Sjogren's syndrome and systemic lupus erythematosus. Clinical correlation is required. Test Methodology: Multiplex flow immunoassay. Performed By: [place] [address] [employer] Director: Valente Escamilla III, M.D. CLIA#: [id number] Performed By: #### B MP, GFR, ANEU, ADIFF, MG, CBC, HFP #### [place] [address] SSA Antibody Qualitative Negative Normal Negative [facility] Comment on above: Result Comment: Perf ormed By: [facility] [address] [place] [address] [employer] Director: Valente Escamilla III, M.D. CLIA#: [id number] Performed By: #### B MP, GFR, ANEU, ADIFF, MG, CBC, HFP #### [place] [address] SSB Antibody Qualitative Negative Normal Negative [facility] Comment on above: Result Comment: Perf ormed By: [place] [address] [employer] Director: Valente Escamilla III, M.D. CLIA#: [id number] Performed By: #### B MP, GFR, ANEU, ADIFF, MG, CBC, HFP #### [address] [address] GLUSFon 02-02-2025 GLU CSF Spec CSF Normal [facility] Comment on above: Performed By: #### B MP, GFR, ANEU, ADIFF, MG, CBC, HFP #### [place] [id number] Glucose CSF 100 mg/dL High 40-70 [facility] Comment on above: Performed By: #### B MP, GFR, ANEU, ADIFF, MG, CBC, HFP #### [facility] [address] [place] [address] LABORATORYOrdered By: Nicole Sanchez on 02-02-2025 Appearance (Body fld) Clear (02/02/25 3:15 PM) Normal AH Manual Heme SS Color (Body fld) Colorless (02/02/25 3:15 PM) Normal AH Manual Heme SS Comment CSF See Below 35 (02/02/25 3:15 PM) Normal AH Manual Heme SS Comment on above: Result Comment: Lact ic acid is not performed on CSF containing 5 or fewer WBC/mm3. RBC (CSF) [#/Vol] 2 1 High 0 - 1 /mm3 AH Manu al Heme SS WBC (Body fld) [#/Vol] /mm3 1 Normal 0 - 5 /mm3 AH Manual Heme SS LABORATORYOrdered By: Manuel Corral on 02-02-2025 C. neoformans rRNA AMY+probe Qn (Unsp spec) Not Detected *NA* (02/02/25 3:15 PM) Invalid Interpretation Code Not Detected AH Auto Viro/Sero SS CMV DNA AMY+probe Ql (CSF) Not Detected *NA* (02/02/25 3:15 PM) Invalid Interpretation Code Not Detected AH Auto Viro/Sero SS E. coli DNA AMY+probe Ql (Unsp spec) Not Detected *NA* (02/02/25 3:15 PM) Invalid Interpretation Code Not Detected AH Auto Viro/Sero SS Enterovirus RNA AMY+probe Ql (CSF) Not Detected *NA* (02/02/25 3:15 PM) Invalid Interpretation Code Not Detected AH Auto Viro/Sero SS H. influenzae DNA AMY+probe Ql (Unsp spec) Not Detected *NA* (02/02/25 3:15 PM) Invalid Interpretation Code Not Detected AH Auto Viro/Sero SS HHV 6 DNA AMY+probe Ql (CSF) Not Detecte d *NA* (02/02/25 3:15 PM) Invalid Interpretation Code Not Detected AH Auto Viro/Sero SS HSV 1 DNA AMY+probe Ql (CSF) Not Detecte d *NA* (02/02/25 3:15 PM) Invalid Interpretation Code Not Detected AH Auto Viro/Sero SS HSV 2 DNA AMY+probe Ql (CSF) Not Detecte d *NA* (02/02/25 3:15 PM) Invalid Interpretation Code Not Detected AH Auto Viro/Sero SS L. monocytogenes DNA AMY+probe Ql (Unsp spec) Not Detected *NA* (02/02/25 3:15 PM) Invalid Interpretation Code Not Detected AH Auto Viro/Sero SS N. meningitidis DNA AMY+probe Ql (Unsp spec) Not Detected *NA* (02/02/25 3:15 PM) Invalid Interpretation Code Not Detected AH Auto Viro/Sero SS Parechovirus A RNA AMY+probe Ql (Unsp spec) Not Detected *NA* (02/02/25 3:15 PM) Invalid Interpretation Code Not Detected AH Auto Viro/Sero SS S. agalactiae DNA AMY+probe Ql (Unsp spec) Not Detected *NA* (02/02/25 3:15 PM) Invalid Interpretation Code Not Detected AH Auto Viro/Sero SS S. pneumoniae DNA AMY+probe Ql (Unsp spec) Not Detected *NA* (02/02/25 3:15 PM) Invalid Interpretation Code Not Detected AH Auto Viro/Sero SS VZV DNA AMY+probe Ql (CSF) Not Detected *NA* (02/02/25 3:15 PM) Invalid Interpretation Code Not Detected AH Auto Viro/Sero SS LABORATORYOrdered By: Chetan burkett on 02-02-2025 Cells Counted Total (CSF) [#] See Comment Invalid Interpretation Code AH Manual Heme SS Comment on above: Result Comment: No c ells identified LABORATORYOrdered By: Marivel Maldonado on 02-02-2025 GLU CSF Spec CSF (02/02/25 3:15 PM) Normal AH Chemistry S Prot CSF Spec CSF (02/02/25 3:15 PM) Normal AH Chemistry S LABORATORYOrdered By: SYSTEM SYSTEM on 02-02-2025 Glucose (CSF) [Mass/Vol] 100 mg/dL High 40 - 70 mg/dL AH ADM SS Protein (CSF) [Mass/Vol] 52.1 mg/dL High 8.0 - 32.0 mg/dL AH ADM SS PT Coag (PPP) [Time] 11.5 s Normal 9.0 - 1 4.4 seconds AH [facility] SS Comment on above: Interpretive Data: E ffective 11/25/07, Protime results may be affected by some antibiotics (i.e. Ciprofloxacin, Azithromycin, Bactrim) which may potentiate the action of oral anticoagulants, with further increases in Protime/INR. PT International Ratio 1.0 ratio Invalid [facility]ation Code [facility] Comment on above: Interpretive Data: T he [place] [employer] (CHEST, 1991, 102:312S-25S) recommended therapeutic range for oral anticoagulant therapy is: LOW RISK: Prophylaxis of venous thrombosis INR: 2.0-3.0 Treatment of pulmonary embolism 2.0-3.0 Prevention of systemic embolism 2.0-3.0 HIGH RISK: Mechanical prosthetic valves 2.5-3.5 LABORATORYOrdered By: [employer] CONTRIBUTOR_SYSTEM on 02-02-2025 Lyme Additional Information (LC) Comment Invalid Interpretation Code [facility] Comment on above: Result Comment: Per CDC criteria, the Lyme IgG Immunoblot is interpreted as positive if IgG-class antibodies are detected to 5 or more B. burgdorferi proteins, and the Lyme IgM Immunoblot is interpreted as positive if IgM-class antibodies are detected to 2 or more B. burgdorferi proteins. Immunoblot patterns not meeting these criteria should not be interpreted as positive. Epitopes from certain B. burgdorferi proteins (e.g., p41) are conserved across other bacteria, which may lead to the detection of IgM-and/or IgG class antibodies on the Lyme disease immunoblots in patients without Lyme disease. Immunoblot should only be ordered on specimens that are positive or equivocal by an FDA-licensed Lyme disease antibody screening test (e.g., EIA). Results of the Lyme IgM immunoblot should not be considered in patients with 30 or more days of symptoms. Performed At: [address] [id number] Kelvin Caba MD Ph:[phone] Lyme IgG CSF Interp WB (LC) Negative Inva lid Interpretation Code Negative [facility] Lyme IgM CSF Interp WB (LC) Negative Inva lid Interpretation Code Negative [facility] Comment on above: Result Comment: Crit eria for positivity are those recommended by CDC/ASTPHLD. p23=Osp C, j84=utabhwwqa P18 IgG CSF (LC) Absent Invalid Interpretation Code [facility] P23 IgG CSF (LC) Absent Invalid Interpretation Code AH [facility] SS P23 IgM CSF (LC) Absent Invalid Interpretation Code AH [facility] SS P28 IgG CSF (LC) Absent Invalid Interpretation Code AH [facility] SS P30 IgG CSF (LC) Absent Invalid Interpretation Code AH [facility] SS P39 IgG CSF (LC) Absent Invalid Interpretation Code AH [facility] SS P39 IgM CSF (LC) Absent Invalid Interpretation Code AH [facility] SS P41 IgG CSF (LC) Absent Invalid Interpretation Code AH [facility] SS P41 IgM CSF (LC) Absent Invalid Interpretation Code AH [facility] SS P45 IgG CSF (LC) Absent Invalid Interpretation Code AH [facility] SS P58 IgG CSF (LC) Absent Invalid Interpretation Code AH [facility] SS P66 IgG CSF (LC) Absent Invalid Interpretation Code AH [facility] SS P93 IgG CSF (LC) Absent Invalid Interpretation Code AH [facility] SS VDRL CSF (LC) Non-Reactive Invalid Interpretation Code Non [place]:<1:1 AH [facility] SS Comment on above: Result Comment: Perf ormed At: [address] [id number] Kelvin Caba MD Ph:[phone] EBV PCR Real Time (LC) Negative Invalid Interpretation Code Negative AH [facility] SS Comment on above: Result Comment: No E pstein-Bee Virus DNA Detected. This test was developed and its performance characteristics determined by [employer]. It has not been cleared or approved by the Food and Drug Administration. Performed At: [address] [id number] Kelvin Caba MD Ph:[phone] Lyme PCR (LC) Negative Invalid Interpretation Code Negative [facility] Comment on above: Result Comment: No B . burgdorferi DNA Detected. A negative PCR result for Borrelia burgdorferi on a blood sample does not eliminate the possibility of Lyme disease. CDC recommends that two-tiered serological testing in conjunction with clinical evaluation be used as the primary method of diagnosis. This test was developed and its performance characteristics determined by [employer]. It has not been cleared or approved by the Food and Drug Administration. Performed At: [address] [id number] Kelvin Caba MD Ph:[phone] LABORATORYOrdered By: Umberto briggs on 02-02-2025 EBV PCR Source (LC) CSF (02/02/25 3:14 PM) Normal AH [facility]outs SS Misc. lab Send Out (Non Blood) See Comments 61 (02/02/25 3:14 PM) Normal AH [facility] SS Comment on above: Result Comment: Florencio larios reference lab report scanned to EMR. Lyme PCR Source (LC) Blood (02/02/25 10:28 AM) Normal AH [facility]outs SS LABORATORYOrdered By: Sravanthi thomas on 02-02-2025 Amphetamines Screen Ql (U) Negative *NA* (02/02/25 12:52 PM) Invalid Interpretation Code Negative AH ADM SS Barbiturates Screen Ql (U) Negative *NA* (02/02/25 12:52 PM) Invalid Interpretation Code Negative AH ADM SS Benzodiazepines Ql (U) Negative *NA* (02/02/25 12:52 PM) Invalid Interpretation Code Negative AH ADM SS Benzoylecgonine Screen Ql (U) Negative *NA* (02/02/25 12:52 PM) Invalid Interpretation Code Negative AH ADM SS Cannabinoids Screen Ql (U) Negative *NA* (02/02/25 12:52 PM) Invalid Interpretation Code Negative AH ADM SS fentaNYL Screen Ql (U) Negative 11 *NA* (02/02/25 12:52 PM) Invalid Interpretation Code Negative AH ADM SS Comment on above: Interpretive Data: T esting has been performed FOR MEDICAL PURPOSES ONLY. Methadone Screen Ql (U) Negative *NA* (02/02/25 12:52 PM) Invalid Interpretation Code Negative AH ADM SS Opiates Screen Ql (U) Negative *NA* (02/02/25 12:52 PM) Invalid Interpretation Code Negative AH ADM SS oxyCODONE Ql (U) Negative 12 *NA* (02/02/25 12:52 PM) Invalid Interpretation Code Negative AH ADM SS Comment on above: Interpretive Data: T esting has been performed FOR MEDICAL PURPOSES ONLY. pH (U) 7.5 [pH] Normal 5.0 - 8.0 Chemistry S Phencyclidine Ql (U) Negative *NA* (02/02/25 12:52 PM) Invalid Interpretation Code Negative AH ADM SS Propoxyphene Screen Ql (U) Negative *NA* (02/02/25 12:52 PM) Invalid Interpretation Code Negative AH ADM SS Urine Drugs screened: See Below 38 (02/02/25 12:52 PM) Normal Chemistry S Comment on above: Interpretive Data: T his drug screen is a presumptive screening only. No confirmation will be performed unless requested. Drugs screened include: Threshold Amphetamines/Methamphetamines 1,000 ng/mL Barbiturates 200 ng/mL Benzodiazepine metabolites 200 ng/mL Cannabinoids (THC metabolites) 50 ng/mL Benzoylecognine (Cocaine metab) 300 ng/mL Opiates 300 ng/mL Phencyclidine (PCP) 25 ng/mL Methadone 300 ng/mL Propoxyphene 300 ng/mL Fentanyl 1.0 ng/mL Oxycodone 100 ng/mL Testing has been performed FOR MEDICAL PURPOSES ONLY. LABORATORYOrdered By: Vanessa Vasquez on 02-02-2025 Appearance (U) Clear (02/02/25 12:52 PM) Normal Clear AH Auto Urine SS Bilirubin Ql (U) Negative (02/02/25 12:52 PM) Normal Neg-Trace AH Auto Urine SS Color (U) Yellow (02/02/25 12:52 PM) Normal AH Auto Urine SS Glucose Test strip (U) [Mass/Vol] Negative Normal Negative AH Auto Urine SS Hemoglobin Auto test strip (U) [Mass/Vol] Negative (02/02/25 12:52 PM) Normal Neg-Trace AH Auto Urine SS Ketones Ql (U) Negative Normal Neg-Trace AH Auto Urine SS UA Leuk Est Negative (02/02/25 12:52 PM) Normal Negative AH Auto Urine SS UA Nitrite Negative (02/02/25 12:52 PM) Normal Negative AH Auto Urine SS UA pH 8.5 *ABN* (02/02/25 12:52 PM) Invalid Interpretation Code 5.0 - 8.0 AH Auto Urine SS UA Protein Negative Normal Negative AH Auto Urine SS UA Spec Grav 1.010 (02/02/25 12:52 PM) Normal 1.006-1.02 9 AH Auto Urine SS UA Specimen Type Clean Catch (02/02/25 12:52 PM) Normal AH Auto Urine SS UA Urobilinogen 0.2 E.U./dL Normal 0.2-1.0 AH Auto Urine SS LABORATORYOrdered By: Carmina Mcallister on 02-02-2025 Reagin Ab RPR Ql (S) Non-Reactive 44 (02/02/25 11:58 AM) Normal Non-Reacti ve AH Man Viro/Sero SS Comment on above: Interpretive Data: T he RPR test is a non-treponemal assay useful as an aid in the diagnosis of primary and secondary syphilis. It converts to positive generally within 2 weeks after the appearance of a lesion. This test is also useful for monitoring response to antibiotic therapy. False positive RPR tests may occur in 1) patients with underlying autoimmune disorders, 2) elderly patients, 3) , and 4) other conditions with abnormal serum globulins. LABORATORYOrdered By: Laquita Encarnacion on 02-02-2025 Syphilis Interpretation See Interp 55 *NA* (02/02/25 11:58 AM) Invalid Interpretation Code Chemistry S Comment on above: Result Comment: Clinical Interpretation: Reactive for syphilis T. pallidum antibody. Consistent with past or current syphilis infection. Sequential RPR quantitative testing recommended to monitor treatment effectiveness using change in titers. T. pallidum Ab IA Ql (S) Reactive *ABN* (02/02/25 11:58 AM) Invalid Interpretation Code Non-Reacti ve [facility] Cryptococcus neoformans valdemar Not detected Normal Not Detected [facility] Comment on above: Performed By: #### B MP, GFR, ANEU, ADIFF, MG, CBC, HFP #### [address] [address] CSF Cytomegalovirus Not detected Normal Not Detected [facility] Comment on above: Performed By: #### B MP, GFR, ANEU, ADIFF, MG, CBC, HFP #### [address] [address] CSF Enterovirus Not detected Normal Not Detected [facility] Comment on above: Performed By: #### B MP, GFR, ANEU, ADIFF, MG, CBC, HFP #### [address] [address] CSF Escherichia coli K1 Not detected Normal Not Detected [facility] Comment on above: Performed By: #### B MP, GFR, ANEU, ADIFF, MG, CBC, HFP #### [address] [address] CSF Haemophilis influenzae Not detected Normal N ot Detected [facility] Comment on above: Performed By: #### B MP, GFR, ANEU, ADIFF, MG, CBC, HFP #### [place] [address] CSF Herpes simplex virus 1 Not detected Normal N ot Detected [facility] Comment on above: Performed By: #### B MP, GFR, ANEU, ADIFF, MG, CBC, HFP #### [place] [address] CSF Herpes simplex virus 2 Not detected Normal N ot Detected [facility] Comment on above: Performed By: #### B MP, GFR, ANEU, ADIFF, MG, CBC, HFP #### [place] [address] CSF Human herpesvirus 6 Not detected Normal Not Detected [facility] Comment on above: Performed By: #### B MP, GFR, ANEU, ADIFF, MG, CBC, HFP #### [place] [address] CSF Human parechovirus Not detected Normal Not Detected [facility] Comment on above: Performed By: #### B MP, GFR, ANEU, ADIFF, MG, CBC, HFP #### [place] [address] CSF Listeria monocytogenes Not detected Normal N ot Detected [facility] Comment on above: Performed By: #### B MP, GFR, ANEU, ADIFF, MG, CBC, HFP #### [place] [address] CSF Neisseria meningitides Not detected Normal N ot Detected [facility] Comment on above: Performed By: #### B MP, GFR, ANEU, ADIFF, MG, CBC, HFP #### [place] [address] CSF Streptococcus agalactiae Not detected Normal Not Detected [facility] Comment on above: Performed By: #### B MP, GFR, ANEU, ADIFF, MG, CBC, HFP #### [place] [address] CSF Streptococcus pneumoniae Not detected Normal Not Detected [facility] Comment on above: Performed By: #### B MP, GFR, ANEU, ADIFF, MG, CBC, HFP #### [facility] [address] [place], [place] [address] CSF Varicella zoster virus Not detected Normal N ot Detected [facility] Comment on above: Performed By: #### B MP, GFR, ANEU, ADIFF, MG, CBC, HFP #### [facility] [address] [place] [id number] MGon 02-02-2025 Magnesium [Mass/Vol] 1.9 mg/dL Normal 1.6-2.4 [facility] Comment on above: Performed By: #### B MP, GFR, ANEU, ADIFF, MG, CBC, HFP #### [address] [address] MITOon 02-02-2025 Mitochondrial (M2) Antibody <20.0 Normal 0.0-20.0 [facility] Comment on above: Result Comment: Nega tive 0.0 - 20.0 Equivocal 20.1 - 24.9 Positive >24.9 Mitochondrial (M2) Antibodies are found in 90-96% of patients with primary biliary cirrhosis. Performed At: [address] [id number] Viktoriya Sabillon PhD Ph:[phone] Performed By: #### B MP, GFR, ANEU, ADIFF, MG, CBC, HFP #### [place] [address] No Panel Informationon 02-02 Culture CSF No growth at 48 hours. A [facility] Work Phone: GS Sedimented No organisms seen. [facility] Work Phone: Non-Continuous Improvement Specialist Cytology Reporton Non-Continuous Improvement Specialist Cytology Report Event Display: N G Signature Pathology Report verified by [facility] Screened by: FRANCISCO JAMES Electronically signed by BAILEY PARKER Sign-Out Date: 02/04/2025 10:44 Performing Lab: [facility], [address] [place] [address] Pathology Dept BAILEY PARKER MD:VERIFY; Authored Date: [id number] [facility] Work Phone: Non-Continuous Improvement Specialist Cytology Report Event Display: N G Diagnostic Category Interp NEGATIVE FOR MALIGNANCY. No cells identified. BAILEY PARKER MD:VERIFY; Authored Date: [facility] Work Phone: Non-Continuous Improvement Specialist Cytology Report Event Display: N G Gross # of Monolayers: 1 cytospin fixed slide BAILEY PARKER MD:VERIFY; Authored Date: [facility] Work Phone: Non-Continuous Improvement Specialist Cytology Report Event Display: N G Disclaimer If ancillary studies were utilized, the following Laboratory Developed Test (LDT) disclaimer will apply: Under CLIA requirements, [facility] is qualified to perform high complexity testing. For all ancillary stains, positive and negative controls stain appropriately. Performance characteristics of immunohistochemical and chromogenic in-situ hybridization tests have been determined by [facility]. These tests are used for clinical purposes, They should not be regarded as investigational or for research. BAILEY PARKER MD:VERIFY; Authored Date: [facility] Work Phone: Non-Continuous Improvement Specialist Cytology Report Event Display: N G Clin Info AMS BAILEY PARKER MD:VERIFY; Authored Date: [facility] Work Phone: Non-Continuous Improvement Specialist Cytology Report Event Display: N G Specimen Cerebrospinal Fluid BAILEY PARKER MD:VERIFY; Authored Date: [facility] Work Phone: PARIEon 02-02-2025 Antiparietal Cell Antibody <1.0 Normal 0.0-20.0 [facility] Comment on above: Result Comment: Nega tive 0.0 - 20.0 Equivocal 20.1 - 24.9 Positive >24.9 Parietal Cell Antibodies are found in 90% of patients with pernicious anemia and 30% of first degree relatives with pernicious anemia. Performed At: [address] [id number] Viktoriya Sabillon PhD Ph:[phone] Performed By: #### B MP, GFR, ANEU, ADIFF, MG, CBC, HFP #### [place] [id number] PROon 02-02-2025 INR Coag (PPP) [Relative time] 1.0 {INR} Normal [facility] Comment on above: Order Comment: for L P Result Comment: The [place] [employer] (CHEST, 1991, 102:312S-25S) recommended therapeutic range for oral anticoagulant therapy is: LOW RISK: Prophylaxis of venous thrombosis INR: 2.0-3.0 Treatment of pulmonary embolism 2.0-3.0 Prevention of systemic embolism 2.0-3.0 HIGH RISK: Mechanical prosthetic valves 2.5-3.5 Performed By: #### B MP, GFR, ANEU, ADIFF, MG, CBC, HFP #### [place] [id number] PT Coag (PPP) [Time] 11.5 s Normal 9.0-14.4 [facility] Comment on above: Order Comment: for L P Result Comment: Effe ctive 11/25/07, Protime results may be affected by some antibiotics (i.e. Ciprofloxacin, Azithromycin, Bactrim) which may potentiate the action of oral anticoagulants, with further increases in Protime/INR. Performed By: #### B MP, GFR, ANEU, ADIFF, MG, CBC, HFP #### [place] [address] PROSFon 02-02-2025 Prot CSF Spec CSF Normal [facility] Comment on above: Performed By: #### B MP, GFR, ANEU, ADIFF, MG, CBC, HFP #### [place] [id number] Protein CSF 52.1 mg/dL High 8.0-32.0 [facility] Comment on above: Performed By: #### B MP, GFR, ANEU, ADIFF, MG, CBC, HFP #### [place] [id number] RFon 02-02-2025 Rheumatoid Factor (RF) 10.8 IU/mL Normal <14.0 [facility] Comment on above: Result Comment: Perf ormed At: [facility] [address] [place], [place] [id number] Viktoriya Sabillon PhD Ph:[phone] Performed By: #### B MP, GFR, ANEU, ADIFF, MG, CBC, HFP #### [place] [address] RIBABon 02-02-2025 Antiribosomal P Abs <0.2 Normal 0.0-0.9 [facility] Comment on above: Result Comment: Perf ormed At: [place] [id number] [place], [place] [id number] Viktoriya Sabillon PhD Ph:[phone] Performed By: #### B MP, GFR, ANEU, ADIFF, MG, CBC, HFP #### [place] [address] SMUSCon 02-02-2025 Actin (Smooth Muscle) Antibody 12 units Normal 0-19 [facility] Comment on above: Result Comment: Nega tive 0 - 19 Weak positive 20 - 30 Moderate to strong positive >30 Actin Antibodies are found in 52-85% of patients with autoimmune hepatitis or chronic active hepatitis and in 22% of patients with primary biliary cirrhosis. Performed At: [address] [id number] Viktoriya Sabillon PhD Ph:[phone] Performed By: #### B MP, GFR, ANEU, ADIFF, MG, CBC, HFP #### [place] [address] SYPHRon 02-02-2025 Syphilis Reactive Abnormal Non-Reacti ve [facility] Comment on above: Performed By: #### B MP, GFR, ANEU, ADIFF, MG, CBC, HFP #### [place] [address] Syphilis Interpretation See [facility] MAIN Comment on above: Result Comment: Clinical Interpretation: Reactive for syphilis T. pallidum antibody. Consistent with past or current syphilis infection. Sequential RPR quantitative testing recommended to monitor treatment effectiveness using change in titers. Performed By: #### B MP, GFR, ANEU, ADIFF, MG, CBC, HFP #### [place] [address] UAon 02-02-2025 Color (U) Yellow Normal [facility] Comment on above: Performed By: #### B MP, GFR, ANEU, ADIFF, MG, CBC, HFP #### [place] [address] Glucose (U) [Mass/Vol] Negative Normal Negative [facility] Comment on above: Performed By: #### B MP, GFR, ANEU, ADIFF, MG, CBC, HFP #### [place] [address] Ketones Ql (U) Negative Normal Neg-Trace [facility] Comment on above: Performed By: #### B MP, GFR, ANEU, ADIFF, MG, CBC, HFP #### [place] [address] UA Appear Clear Normal Clear [facility] Comment on above: Performed By: #### B MP, GFR, ANEU, ADIFF, MG, CBC, HFP #### [place] [address] UA Blood Negative Normal Neg-Trace [facility] Comment on above: Performed By: #### B MP, GFR, ANEU, ADIFF, MG, CBC, HFP #### [place] [address] UA Leuk Est Negative Normal Negative [facility] Comment on above: Performed By: #### B MP, GFR, ANEU, ADIFF, MG, CBC, HFP #### [place] [address] UA Nitrite Negative Normal Negative [facility] Comment on above: Performed By: #### B MP, GFR, ANEU, ADIFF, MG, CBC, HFP #### [place] [address] UA pH 8.5 Abnormal 5.0 - 8.0 [facility] Comment on above: Performed By: #### B MP, GFR, ANEU, ADIFF, MG, CBC, HFP #### [place] [address] UA Protein Negative Normal Negative [facility] Comment on above: Performed By: #### B MP, GFR, ANEU, ADIFF, MG, CBC, HFP #### [place] [address] UA Spec Grav 1.010 Normal 1.006-1.02 9 [facility] Comment on above: Performed By: #### B MP, GFR, ANEU, ADIFF, MG, CBC, HFP #### [place] [address] UA Specimen Type Clean Catch Normal [facility] Comment on above: Performed By: #### B MP, GFR, ANEU, ADIFF, MG, CBC, HFP #### [place] [address] UA Urobilinogen 0.2 E.U./dL Normal 0.2-1.0 [facility] Comment on above: Performed By: #### B MP, GFR, ANEU, ADIFF, MG, CBC, HFP #### [place] [address] Urobilinogen (U) [Mass/Vol] Negative Normal Neg-Trac e [facility] Comment on above: Performed By: #### B MP, GFR, ANEU, ADIFF, MG, CBC, HFP #### [place] [address] B12on 02-01-2025 Cobalamin (Vitamin B12) [Mass/Vol] 1205 pg/mL High 211-911 [facility] Comment on above: Performed By: #### B MP, GFR, ANEU, ADIFF, MG, CBC, HFP #### [place] [address] FOLon 02-01-2025 Folate 14.99 ng/mL Normal 5.38-24.00 [facility] Comment on above: Performed By: #### B MP, GFR, ANEU, ADIFF, MG, CBC, HFP #### [place] [address] LABORATORYOrdered By: SYSTEM SYSTEM on 02-01-2025 Cobalamin (Vitamin B12) [Mass/Vol] 1205 pg/mL High 211 - 911 pg/mL [facility] Folate [Mass/Vol] 14.99 ng/mL Normal 5.38 - 24.00 ng/mL AH ADM SS LABORATORYOrdered By: Skyler Nicolas on 02-01-2025 Blood Glucose Interventions Administered agent to decrease blood sugar (02/01/25 4:44 PM) [facility] Work Phone: Blood Glucose Interventions Administered agent to decrease blood sugar (02/01/25 8:37 AM) [facility] Work Phone: MRI BRAIN W/ CONTRASTon 01-12 MRI BRAIN W/ CONTRAST ORIGINAL EXAMINATION: MRI OF THE BRAIN WITH CONTRAST TECHNIQUE: Multiplanar multisequence MRI of the head/brain was performed with the administration of intravenous contrast. COMPARISON: MRI January 30, 2025. HISTORY: ORDERING SYSTEM PROVIDED HISTORY: Reason for Exam: AMS FINDINGS: Nonspecific generalized smooth thin pachymeningeal enhancement. Otherwise, no abnormal enhancement is seen. The configuration of the ventricular system is normal. IMPRESSION: Nonspecific generalized smooth thin pachymeningeal enhancement; correlate with CSF sampling given reported history. Otherwise, no abnormal enhancement is seen. I have personally reviewed the images of this examination and agree with the resident's findings and interpretation. Interpreted by: Randy Hunter Preliminary Report By: Ramos Neal Electronically signed By Randy Hunter Dictated Date: 02/01/2025 7:17:25 PM Prelim Date: 02/01/2025 7:24:00 PM Sign Date: 02/01/2025 7:31:40 PM Ordering Provider: ALEXANDREA Lewis [facility] .Auto Diffon 01-31-2025 Basophil, Absolute 0.0 10 3/mcL Normal 0.0-0.3 [facility] Comment on above: Performed By: #### B MP, GFR, ANEU, ADIFF, MG, CBC, HFP #### [address] [address] Basophils/100 WBC (Bld) 0.7 % Normal 0.0-2.5 [facility] Comment on above: Performed By: #### B MP, GFR, ANEU, ADIFF, MG, CBC, HFP #### [address] [address] Eosinophil, Absolute 0.1 10 3/mcL Normal 0.0-0.7 [facility] Comment on above: Performed By: #### B MP, GFR, ANEU, ADIFF, MG, CBC, HFP #### [address] [address] Eosinophils/100 WBC (Bld) 1.7 % Normal 0.0-6.0 [facility] Comment on above: Performed By: #### B MP, GFR, ANEU, ADIFF, MG, CBC, HFP #### [address] [address] Lymphocyte, Absolute 1.6 10 3/mcL Normal 0.9-4.3 [facility] Comment on above: Performed By: #### B MP, GFR, ANEU, ADIFF, MG, CBC, HFP #### [address] [address] Lymphocytes/100 WBC (Bld) 21.2 % Normal 20.0-40.0 [facility] Comment on above: Performed By: #### B MP, GFR, ANEU, ADIFF, MG, CBC, HFP #### [address] [address] Monocyte, Absolute 0.4 10 3/mcL Normal 0.1-1.4 [facility] Comment on above: Performed By: #### B MP, GFR, ANEU, ADIFF, MG, CBC, HFP #### [address] [address] Monocytes/100 WBC (Bld) 5.4 % Normal 2.0-13.0 [facility] Comment on above: Performed By: #### B MP, GFR, ANEU, ADIFF, MG, CBC, HFP #### [address] [address] Neutrophils/100 WBC (Bld) 71.0 % Normal 50.0-75.0 [facility] Comment on above: Performed By: #### B MP, GFR, ANEU, ADIFF, MG, CBC, HFP #### [address] [address] .GFRon 01-31-2025 Estimated Glomerular Filtration Rate 113 ml/min/1.73sqm Normal [facility] Comment on above: Result Comment: Stages of Chronic Kidney Disease (CKD) Stage Description eGFR(ml/min/1.73 sq.m.) CKD 1 Normal kidney function or >=90 normal kindney function with possible kidney damage (ex. Proteinuria) CKD 2 Kidney damage with mild loss 60-89 of kidney function CKD 3a Mild to moderate loss of kidney 45-59 function CKD 3b Moderate to severe loss of 30-44 of kindey function CKD 4 Severe loss of kidney function 15-29 CKD 5 Kidney failure <15 Note: (go live 2024) the eGFR calculation was updated to the 2020 CKD-EPI creatinine equation without a race factor to calculate the eGFR results. Performed By: #### B MP, GFR, ANEU, ADIFF, MG, CBC, HFP #### [place] [address] .NEUABSon 01-31-2025 Neutrophil, Absolute 5.2 10 3/mcL Normal 2.3-8.1 [facility] Comment on above: Performed By: #### B MP, GFR, ANEU, ADIFF, MG, CBC, HFP #### [place] [address] [id number] 01-31-2025 Complement C3A 142.0 mg/dL Normal 90.0-170.0 [facility] Comment on above: Performed By: #### B MP, GFR, ANEU, ADIFF, MG, CBC, HFP #### [place] [address] Complement C4A 28.0 mg/dL Normal 16.0-38.0 [facility] Comment on above: Performed By: #### B MP, GFR, ANEU, ADIFF, MG, CBC, HFP #### [place] [address] CBCon 01-31-2025 Erythrocyte distribution width (RBC) [Ratio] 12.7 % Normal 11.5-15.5 [facility] Comment on above: Performed By: #### B MP, GFR, ANEU, ADIFF, MG, CBC, HFP #### [place] [address] Hematocrit (Bld) [Volume fraction] 41.1 % Normal 40.0-52.0 [facility] Comment on above: Performed By: #### B MP, GFR, ANEU, ADIFF, MG, CBC, HFP #### [place] [address] Hgb 14.0 G/dL Normal 13.0-17.5 [facility] Comment on above: Performed By: #### B MP, GFR, ANEU, ADIFF, MG, CBC, HFP #### [place] [address] MCH (RBC) [Entitic mass] 28.3 pg Normal 27.0-33.0 [facility] Comment on above: Performed By: #### B MP, GFR, ANEU, ADIFF, MG, CBC, HFP #### [place] [address] MCHC 33.9 G/dL Normal 32.0-36.0 [facility] Comment on above: Performed By: #### B MP, GFR, ANEU, ADIFF, MG, CBC, HFP #### [place] [address] MCV (RBC) [Entitic vol] 83.3 fL Normal 81.0-100.0 [facility] Comment on above: Performed By: #### B MP, GFR, ANEU, ADIFF, MG, CBC, HFP #### [place] [address] Platelet 251 10 3/mcL Normal 150-450 [facility] Comment on above: Performed By: #### B MP, GFR, ANEU, ADIFF, MG, CBC, HFP #### [place] [address] Platelet mean volume (Bld) [Entitic vol] 7.4 fL Normal 6.4-10.5 [facility] Comment on above: Performed By: #### B MP, GFR, ANEU, ADIFF, MG, CBC, HFP #### [place] [address] RBC 4.94 10 6/mcL Normal 4.50-6.00 [facility] Comment on above: Performed By: #### B MP, GFR, ANEU, ADIFF, MG, CBC, HFP #### [place] [address] WBC 7.3 10 3/mcL Normal 4.5-10.8 [facility] Comment on above: Performed By: #### B MP, GFR, ANEU, ADIFF, MG, CBC, HFP #### [place] [id number] CMPon 01-31-2025 Albumin Level 3.4 G/dL Normal 3.2-4.8 [facility] Comment on above: Performed By: #### B MP, GFR, ANEU, ADIFF, MG, CBC, HFP #### [place] [address] Albumin/Globulin [Mass ratio] 1.1 {ratio} Normal 0.9-1.6 [facility] Comment on above: Performed By: #### B MP, GFR, ANEU, ADIFF, MG, CBC, HFP #### [place] [address] ALP [Catalytic activity/Vol] 66 U/L Normal 38-126 [facility] Comment on above: Performed By: #### B MP, GFR, ANEU, ADIFF, MG, CBC, HFP #### [place] [address] ALT [Catalytic activity/Vol] 14 U/L Normal 12-55 [facility] Comment on above: Performed By: #### B MP, GFR, ANEU, ADIFF, MG, CBC, HFP #### [place] [address] AST [Catalytic activity/Vol] 14 U/L Normal 8-34 [facility] Comment on above: Performed By: #### B MP, GFR, ANEU, ADIFF, MG, CBC, HFP #### [place] [address] Bili Total 0.40 mg/dL Normal 0.20-1.20 [facility] Comment on above: Result Comment: Use of this assay is not recommended for patients undergoing treatment with eltrombopag due to the potential for falsely elevated results. Performed By: #### B MP, GFR, ANEU, ADIFF, MG, CBC, HFP #### [place] [id number] BUN/Creatinine Ratio 11.1 ratio Normal 10.0-22.0 [facility] Comment on above: Performed By: #### B MP, GFR, ANEU, ADIFF, MG, CBC, HFP #### [place] [id number] Calcium [Mass/Vol] 9.5 mg/dL Normal 8.7-10.4 [facility] Comment on above: Performed By: #### B MP, GFR, ANEU, ADIFF, MG, CBC, HFP #### [place] [id number] Chloride [Moles/Vol] 102 mmol/L Normal 98-110 [facility] Comment on above: Performed By: #### B MP, GFR, ANEU, ADIFF, MG, CBC, HFP #### [place] [id number] CO2 [Moles/Vol] 28 mmol/L Normal 22-32 [facility] Comment on above: Performed By: #### B MP, GFR, ANEU, ADIFF, MG, CBC, HFP #### [place] [id number] Creatinine [Mass/Vol] 0.72 mg/dL Normal 0.60-1.40 [facility] Comment on above: Result Comment: Test ing performed on Gazemetrix analyzer using enzymatic creatinine methodology. Performed By: #### B MP, GFR, ANEU, ADIFF, MG, CBC, HFP #### [place] [id number] Electrolyte Balance 10.0 mEq/L Normal 4.0-15.0 [facility] Comment on above: Performed By: #### B MP, GFR, ANEU, ADIFF, MG, CBC, HFP #### [place] [id number] Globulin 3.2 G/dL Normal 2.5-4.2 [facility] Comment on above: Performed By: #### B MP, GFR, ANEU, ADIFF, MG, CBC, HFP #### [address] [address] Glucose [Mass/Vol] 201 mg/dL High 70-110 [facility] Comment on above: Performed By: #### B MP, GFR, ANEU, ADIFF, MG, CBC, HFP #### [address] [address] Potassium [Moles/Vol] 4.3 mmol/L Normal 3.5-5.0 [facility] Comment on above: Performed By: #### B MP, GFR, ANEU, ADIFF, MG, CBC, HFP #### [address] [address] Sodium [Moles/Vol] 140 mmol/L Normal 136-145 [facility] Comment on above: Performed By: #### B MP, GFR, ANEU, ADIFF, MG, CBC, HFP #### [place] [id number] Total Protein 6.6 G/dL Normal 5.7-8.2 [facility] Comment on above: Performed By: #### B MP, GFR, ANEU, ADIFF, MG, CBC, HFP #### [address] [address] Urea nitrogen [Mass/Vol] 8.0 mg/dL Normal 8.0-22.0 [facility] Comment on above: Performed By: #### B MP, GFR, ANEU, ADIFF, MG, CBC, HFP #### [address] [address] ED MED ADMINISTRATION DETAIL on 01-31-2025 ED MED ADMINISTRATION DETAIL [employer] - GREGORY WARREN : 1975, , Medication Administration Record [address] [address] [id number] 01/29/2025 Patient: GREGORY WARREN Sex: Male : 1975 Age: 49y MEASUREMENTS: Wt: 102.1 kg, Ht/Franklin: 65.0 in, BMI: 37.44 ALLERGIES: No known drug allergies Medication Ordered Medication Administration Date/Time Piperacillin- 12:01/29 Piperacillin-Tazobac (Zosyn) IVPB Started Tazobac (Zosyn) 3.375gm/50ml NS 3.375 g started at 100 mL/hr diluted in 12:21 01/29/2025 IVPB sodium chloride IVPB 0.9 % Minibag+ 50 mL via Site# 1. José Pena, 3.375gm/50ml Allergies verified and confirmed 5 rights. IV patency R.N. NS 3.375 g established. IV site checked: no pain, redness, or swelling. Stopped diluted in IV flushed thoroughly pre-medication administration. 12:50 01/29/2025 sodium chloride Information reviewed with patient. Verbalizes José Pena IVPB 0.9 Jonathan understanding. - 12: José Pena R.N. R.N. Minibag+ 50 mL Not Scanned at 100 mL/hr 12:01/29 Medication Discontinued: IV infused. Total amount infused: 50 mL. IV patency established. IV site checked: no pain, redness, or swelling. IV flushed thoroughly post-medication administration. - 12:50 José Pena R.N. 1 of 3 [employer] - GREGORY WARREN, : 1975, , IV NS 0.9 % 12:01/29 IV NS 0.9 % 1000 mL started in bag#1 1000 Started 1000 mL at 250 mL at 250 mL/hr via Site# 1. Allergies verified and 12:20 01/29/2025 mL/hr (NOW x1) confirmed 5 rights. IV patency established. IV site José Pena, checked: no pain, redness, or swelling. IV flushed R.NEmber thoroughly pre-medication administration. Information Stopped reviewed with patient. Verbalizes understanding. - 12: 17:25 01/29/2025 Leonila Stack R.N. 17:01/29 Medication Discontinued: IV completed. Total Scanned amount infused: 1000 mL. IV patency established. IV site checked: no pain, redness, or swelling. IV flushed thoroughly post-medication administration. - 17:25 José Pena R.N. CefTRIAXone 14:36 01/29 CefTRIAXone (Rocephin) IVPB 2gm/50ml NS 2 Started (Rocephin) IVPB g started at 100 mL/hr diluted in sodium chloride IVPB 0.9 14:36 01/29/2025 2gm/50ml NS 2 % Minibag+ 50 mL via Site# 1. Allergies verified and José Jean, g diluted in confirmed 5 rights. IV patency established. IV site R.N. sodium chloride checked: no pain, redness, or swelling. IV flushed Stopped IVPB 0.9 % thoroughly pre-medication administration. Information 15:01/29/2025 Minibag+ 50 mL reviewed with patient. Verbalizes understanding. - 14:36 José Pena, at 100 mL/hr José Pena R.N. R.NEmber (NOW x1) Not Scanned 15:01/29 Medication Discontinued: IV infused. Total amount infused: 50 mL. IV patency established. IV site checked: no pain, redness, or swelling. IV flushed thoroughly post-medication administration. - 15:11 José Pena R.N. 2 of 3 [employer] - GREGORY WARREN, : 1975, , Vancomycin 16:01/29 Vancomycin 1.5gm/NS 300ml IVPB Premix Started 1.5gm/NS 300ml 1.5 g started at 200 mL/hr via Site# 1. Allergies verified 16:01/29/2025 IVPB Premix 1.5 and confirmed 5 rights. Via IV pump. IV patency boy Stack at 200 mL/hr established. IV site checked: no pain, redness, or swelling. R.N. (NOW x1) IV flushed thoroughly pre-medication administration. Stopped Information reviewed with patient. Verbalizes 17:50 01/29/2025 understanding. - 16:14 Leonila Stack E.M.T.-P. 17:50 01/29 Medication Discontinued: IV completed. Total Scanned amount infused: 300 mL. IV patency established. IV site checked: no pain, redness, or swelling. IV flushed thoroughly post-medication administration. - 17:50 Hi Pimentel E.M.T.-P. Acetaminophen 17:28 01/29 Acetaminophen (Tylenol) PO 975 mg given. Given (Tylenol) PO 975 Allergies verified and confirmed 5 rights. Information 17:28 01/29/2025 mg (NOW x1) reviewed with patient. Verbalizes understanding. - 17:28 José Stack R.N. R.N. Scanned 3 of 3 Normal [facility] ED NURSES CLINICAL NOTEon ED NURSES CLINICAL NOTE Nurse Narrative - GREGORY WARREN, : 1975, , Nurse Clinical Narrative [address] [address] [id number] 01/29/2025 11:31:00 Patient: GREGORY WARREN Sex: Male : 1975 Age: 49y Disposition: Transfer to [facility] Disposition Decision Time: 15:54 01/29/2025 Departure Time: 21:19 01/29/2025 TRIAGE Arrived by private vehicle. Historian: (patient). Accompanied by friend. Patient has a primary care physician. Primary physician (none). Triage time: 11:40 01/29/2025. Acuity: LEVEL 3. Chief Complaint: RIGHT LOWER EXTREMITY SWELLING and REDNESS. ( pt has approx 8 areas around his right knee that are raised and red with purulent drainage present.). SEPSIS SCREEN: NEGATIVE. SIRS criteria negative. No possible sources of infection. -- 11:48 01/29/25 EDT José Pena R.N. 11:44 01/29/25. BP: 170/94 MAP: 119. HR: 80. RR: 18. O2 saturation: 96% Temperature: 98.2 F. Pain level now 8/10. -- 11:48 01/29/25 EDT José Pena R.N. Measurements: 11:48 01/29/25 Wt: 102.1 kg, Ht/Franklin: 65.0 in, BMI: 37.44 -- 11:48 01/29/25 NIMCO Pena R.N. Medications: metformin ER 500 mg tablet,extended release 24 hr: TAKE 1 TABLET BY MOUTH TWICE DAILY -- 11:49 01/29/25 NIMCO Pena R.N. 1 of 5 Nurse Narrative - GREGORY WARREN, : 1975, , Allergies: no known drug allergies -- 11:43 01/29/25 NIMCO Pena R.N. Problems: Diabetes Mellitus -- 11:43 01/29/25 NIMCO Pena R.N. Surgeries: no known surgical history -- 11:43 01/29/25 NIMCO Pena R.N. History 11:40 01/29/25. SOCIAL HX: Former smoker. Drug use: marijuana. No alcohol use. The patient has not traveled outside the [place] Infectious disease exposure: No infectious disease exposure. ABUSE ASSESSMENT: Abuse denied. SELF HARM ASSESSMENT: Self harm assessment was performed. The patient answered no to the question(s) Do you have thoughts of harming or killing yourself? and Do you have a plan for harming or killing yourself?. FALL RISK ASSESSMENT: Fall risk assessment completed. No risk factors identified. -- 11:48 01/29/25 NIMCO Pena R.N. Interventions 11:40 01/29/25. Advanced care plan discussed with patient. Patient does not have advanced directive. -- 11:48 01/29/25 NIMCO Pena R.N. PHYSICAL ASSESSMENT 12:31 01/29/25. Ambulatory to room. GENERAL / NEURO / PSYCH: Oriented X 4. Alert. Appears in no acute distress. 2 of 5 Nurse Narrative - GREGORY WARREN, : 1975, , EXTREMITIES: Extremity pulses are within normal limits. Extremities exhibit normal ROM. Neuro-vascular status intact to the extremity. No lower extremity edema. Normal gait. Right knee: tenderness, swelling and erythema (multiple quarter sized lesions with redness, black eschar and purulent drainage noted.). SKIN: Skin is warm and dry. -- 12:01/29/25 NIMCO Pena R.N. NURSING PROGRESS NOTES 12:01/29/25. Site #1 started with a 20g needle with aseptic technique and good blood return; 1 attempt. Blood drawn: rainbow set and bah tube(s) and cultures x 1. Labeled in the presence of the patient and sent to the lab. Saline lock flushed with 5 mL saline. -- 12:01/29/25 NIMCO Pena R.N. 12:01/29/25. IV NS 0.9 % 1000 mL started in bag#1 1000 mL at 250 mL/hr via Site# 1. Allergies verified and confirmed 5 rights. IV patency established. IV site checked: no pain, redness, or swelling. IV flushed thoroughly pre-medication administration. Information reviewed with patient. Verbalizes understanding. -- 12:01/29/25 NIMCO Pena R.N. 12:01/29/25. Piperacillin-Tazobac (Zosyn) IVPB 3.375gm/50ml NS 3.375 g started at 100 mL/hr diluted in sodium chloride IVPB 0.9 % Minibag+ 50 mL via Site# 1. Allergies verified and confirmed 5 rights. IV patency established. IV site checked: no pain, redness, or swelling. IV flushed thoroughly pre-medication administration. Information reviewed with patient. Verbalizes understanding. -- 12:01/29/25 NIMCO Pena R.N. 12:01/29/25. ( pt is becoming agitated, states If you guys aren't going to do anything for my knee I will just leave. I don't think you are doing anything for this. I should have just stayed home. RN educated pt that we are treating the infection with an antibiotic. he verbalized understanding. pt will stay for medication administration.). -- 12:01/29/25 NIMCO Pena R.N. 12:01/29/25. ( pt refused second set of cultures, refused EKG, is willing to have head CT.). -- 12:01/29/25 NIMCO Pena R.N. 12:38 01/29/25. ( pt requested that IV be taken out and he wants to leave because we aren't treating him. RN explained that the treatment for his infection is antib (more content not included)... Normal [facility] ED ORDER SHEET (CPOE ONLY)on 01-31-2025 ED ORDER SHEET (CPOE ONLY) Order Sheet - GREGORY WARREN, : 1975, , Order Sheet [address] [address] [id number] 01/29/2025 Patient: GREGORY WARREN Sex: Male : 1975 Age: 49y MEASUREMENTS: Wt: 102.1 kg, Ht/Franklin: 65.0 in, BMI: 37.44 ALLERGIES: No known drug allergies MEDICATION/IV/DRIP/FLU ID ORDERS Acknowledge Order Description Priority Entered d Completed Piperacillin-Tazobac 11:51 01/29/2025 12:20 12:21 (Zosyn) IVPB Juan Lion, 01/29/2025 01/29/2025 3.375gm/50ml NS3.375 g D.O. José Satck, diluted in sodium chloride R.N. R.N. IVPB 0.9 % Minibag+ 50 mL at 100 mL/hr IV NS 0.9 %1000 mL at 250 11:51 01/29/2025 12:20 12:21 mL/hr (NOW x1) Juan Lion, 01/29/2025 01/29/2025 D.O. José Stack, R.N. R.N. CefTRIAXone (Rocephin) 14:19 01/29/2025 14:27 14:36 IVPB 2gm/50ml NS2 g Juan Lion, 01/29/2025 01/29/2025 diluted in sodium chloride D.O. José Stack, IVPB 0.9 % Minibag+ 50 mL R.N. R.N. at 100 mL/hr (NOW x1) Reason for ordering with Benefits outweigh risks --14:19 01/29/2025 Juan alerts: Argelia Lion Vancomycin 1.5gm/NS 16:02 01/29/2025 16:13 16:14 1 of 4 Order Sheet - GREGORY WARREN, : 1975, , 300ml IVPB Premix1.5 g at Juan Lion, 01/29/2025 01/29/2025 200 mL/hr (NOW x1) José Horton R.NEmber R.NEmber Reason for ordering with Benefits outweigh risks --16:02 01/29/2025 Juan alerts: Argelia Lion Acetaminophen (Tylenol) 17:15 01/29/2025 17:24 17:28 PO975 mg (NOW x1) Juan Lion, 01/29/2025 01/29/2025 José Horton R.N. REmberNEmber LAB ORDERS Acknowledge Order Description Priority Entered d Collected Completed CBC w Diff Stat Stat 11:51 12:20 12:22 01/29/2025 01/29/2025 01/29/2025 José Hernandez Reisinger, D.O. R.N. R.N. CMP Stat Stat 11:51 12:20 12:22 01/29/2025 01/29/2025 01/29/2025 José Hernandez Reisinger, D.O. R.N. R.N. Blood Culture Stat 11:51 12:20 12:22 [Emre] # 1 Stat 01/29/2025 01/29/2025 01/29/2025 José Hernandez Reisinger, D.O. R.N. R.N. Blood Culture Stat 11:51 12:20 12:22 [Emre] # 2 Stat 01/29/2025 01/29/2025 01/29/2025 José Hernandez Reisinger, D.O. R.N. R.N. 2 of 4 Order Sheet - GREGORY WARREN, : 1975, , Lactate, Serum Stat Stat 11:51 12:20 12:22 01/29/2025 01/29/2025 01/29/2025 José Hernandez Reisinger, D.O. R.N. R.N. EKG - ED Stat Stat 11:51 12:20 12:22 01/29/2025 01/29/2025 01/29/2025 José Hernandez Reisinger, D.O. R.N. R.N. Urinalysis Stat Stat 11:51 12:20 12:22 01/29/2025 01/29/2025 01/29/2025 José Hernandez Reisinger, D.O. R.N. R.N. Drug Screen Urine Stat 15:23 16:13 16:13 Medic Stat 01/29/2025 01/29/2025 01/29/2025 José Hernandez Reisinger, D.O. R.N. R.NEmber DIAGNOSTIC STUDY ORDERS Acknowledge Order Description Priority Entered d Completed CT Brain wo Cont Stat Stat 11:51 01/29/2025 12:20 14:36 Juan Lion, 01/29/2025 01/29/2025 José Horton R.N. R.N. Reason for Study: Altered Mental Status STAFF ORDERS Order Description Priority Entered Acknowledge Collected Completed 3 of 4 Order Sheet - GREGORY WARREN, : 1975, , d IV Saline Lock 11:51 12:20 12:21 01/29/2025 01/29/2025 01/29/2025 José Hernandez Reisinger, D.O. R.NEmber REmberNEmber [Electronically signed by Juan Lion D.O. (01/30/2025 16:43 EDT)] 4 of 4 Normal [facility] ED PHYSICIAN CLINICAL REPORT on 01-31-2025 ED PHYSICIAN CLINICAL REPORT Narrative - GREGORY WARREN : 1975, , Physician Clinical Narrative [facility] [address] [place] [address] [phone] 01/29/2025 11:31:00 Patient: GREGORY WARREN Sex: Male : 1975 Age: 49y Disposition: Transfer to [facility] Disposition Decision Time: 15:54 01/29/2025 Departure Time: 21:19 01/29/2025 Measurements Wt: 102.1 kg, Ht/Franklin: 65.0 in, BMI: 37.44 Initial Vital Sign Measured Felicia Time BP MAP HR RR O2Sat ETCO2 Temp n GCS RTS 11:44 170/94 119 80 18 96% 98.2 F 8 01/29/2025 Time Seen: 11:34 01/29/2025. Arrived- By private vehicle. Historian- patient. 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 HISTORY OF PRESENT ILLNESS Chief Complaint: CHANGED MENTAL STATUS and DIABETIC. patient was brought in by and friend. The friend states he really has not seen him in years and then 3 days ago showed up his house not have a place to stay. He has been staying near his properly. However he can not remember anything of the care members car keys were I could remember a mauve was just very confused and then he has these weeping lesions on his right leg. He does have a history of substance abuse but denies any drug use recently. The patient has been confused. The patient was not found unresponsive. Not a correction resident. REVIEW OF SYSTEMS Narrative - GREGORY WARREN, : 1975, , CONSTITUTIONAL: No fever. NEUROLOGICAL: No headache. CVS: No chest pain. GI: No abdominal pain or vomiting. SKIN: No skin rash. EYES: No blurred vision. PAST HISTORY See nurses notes. Diabetes Mellitus Surgeries: no known surgical history Medications: metformin ER 500 mg tablet,extended release 24 hr: TAKE 1 TABLET BY MOUTH TWICE DAILY Allergies: no known drug allergies SOCIAL HISTORY Former smoker. Drug use: marijuana, methamphetamines. No alcohol use. ADDITIONAL NOTES The nursing notes have been reviewed. PHYSICAL EXAM Appearance: Alert. No acute distress. Head: Head atraumatic. Eyes: Pupils equal, round and reactive to light. ENT: Airway intact. Neck: Normal inspection. CVS: Normal heart rate and rhythm. Respiratory: No respiratory distress. Painless inspiration. Abdomen: Soft and nontender. Skin: Normal skin color. (Shows multiple erythematous papules on his right knee and leg area. There is no 2 of 11 GREGORY Guthrie, : 1975, , drainage. They do appear to be excoriated in certain areas of the papules.). Extremities: Extremities exhibit normal ROM. Neuro: Alert. Oriented X 3. Altered mental status. Cranial nerves normal (as tested). No cerebellar findings. LABS, X-RAYS, AND EKG Laboratory Tests: CBC + DIFF Final TARAN: 01/29/2025 12:05:00 EDT MsgRcvd: 01/29/2025 12:29 EDT Lab Test Result Reference Status Received 01/29/2025 12:29 CBC + DIFF Final EDT CBC-COMPLETE BLOOD COUNT 01/29/2025 12:29 WBC 8.3 x 10/UL 4.5 - 10.8 Final EDT 01/29/2025 12:29 RBC 4.75 x 10/UL 4.50 - 6.00 Final EDT 01/29/2025 12:29 HEMOGLOBIN 13.5 g/dl 13.0 - 17.5 Final EDT 39.2 % 01/29/2025 12:29 HEMATOCRIT 40.0 - 52.0 Final Below low normal EDT 01/29/2025 12:29 MCV 83 fl 81 - 98 Final EDT 01/29/2025 12:29 MCH 28 pg 27 - 33 Final EDT 01/29/2025 12:29 MCHC 35 X10 3 32 - 36 Final EDT 3 of 11 GREGORY Guthrie, : 1975, , 01/29/2025 12:29 RDW/CV 13.1 % 12.0 - 15.6 Final EDT 01/29/2025 12:29 PLATELET 282 x10/UL 150 - 450 Final EDT 01/29/2025 12:29 MPV 7.4 fl 6.4 - 10.5 Final EDT AUTOMATED DIFFERENTIAL 01/29/2025 12:29 NEUT % 67.9 % 46.0 - 76.0 Final EDT 01/29/2025 12:29 LYMPH % 23.5 % 20.0 - 45.0 Final EDT 01/29/2025 12:29 MONOS % 6.4 % 0.0 - 10.0 Final EDT 01/29/2025 12:29 EO % 2.0 % 0.0 - 7.0 Final EDT 01/29/2025 12:29 BASO % 0.3 % 0.0 - 2.0 Final EDT 01/29/2025 12:29 Lymph # 1.96 x10/UL 0.80 - 2.80 Final EDT 01/29/2025 12:29 Neut # 5.66 x10/UL 1.50 - 7.10 Final EDT 01/29/2025 12:29 Owen # 0.53 x10/UL 0.20 - 1.00 Final EDT 01/29/2025 12:29 EO # 0.16 x10/UL 0.00 - 0.50 Final EDT 01/29/2025 12:29 Baso # 0.02 x10/UL 0.00 - 0.10 Final EDT Spencer - GREGORY WARREN, : 1975, , 01/29/2025 12:29 MANUAL DIFF N/A New Order EDT 01/29/2025 12:29 MORPHOLOGY N/A New Order EDT CMP with eGFR Final TARAN: 01/29/2025 12:05:00 EDT MsgRcvd: 01/29/2025 12:49 EDT Lab Test Result Reference Status Received 01/29/2025 12:49 CMP with eGFR Final EDT COMPREHENSIVE METABOLIC PANEL 135 mmol/l 01/29/2025 12:49 SODIUM 136 - 145 Final Below low normal EDT 01/11 (more content not included)... Normal [facility] ED SUPER BILLon 01-31-2025 [facility] 1975, , [place] [address] [place] [address] [phone] 01/29/2025 Patient: GREGORY WARREN Sex: Male : 1975 Age: 49y Item Facility Profession Category Description Code al Code Quantity Fee Total Nurse/E/M EMERGENCY 641933 1 $0.00 $0.00 DEPT VISIT HIGH SEVERITYFU NCJ (37364- 25) Nurse/IV/IM/ Drip/IVPB 621159 1 $0.00 $0.00 Infusions additional hour (83776) Nurse/IV/IM/ Drip/IVPB 900179 1 $0.00 $0.00 Infusions initial (44807) Nurse/IV/IM/ Drip/IVPB 337278 2 $0.00 $0.00 Infusions seq (26858) Nurse/IV/IM/ Hydration 713852 3 $0.00 $0.00 Infusions additional hour (59162) Grand Total $0.00 1 of 2 GREGORY Carr, : 1975, , Providers Juan Lion D.O. Chief Complaint CHANGED MENTAL STATUS and DIABETIC. patient was brought in by and friend. The friend states he really has not seen him in years and then 3 days ago showed up his house not have a place to stay. He has been staying near his properly. However he can not remember anything of the care members car keys were I could remember a mauve was just very confused and then he has these weeping lesions on his right leg. He does have a history of substance abuse but denies any drug use recently. Principal Diagnosis Changed mental status with confusion. Multiple superficial abscesses to the right lower extremity. Cellulitis of the right knee and right lower leg. ICD-10 Codes R41.82: Altered mental status, unspecified R41.0: Disorientation, unspecified L02.415: Cutaneous abscess of right lower limb L03.115: Cellulitis of right lower limb 2 of 2 Normal [facility] ED VISIT SUMMARYon ED VISIT SUMMARY Visit Overview - GREGORY SPICER, : 1975, , Visit [id number] [place] [address] [phone] 01/29/2025 Patient: GREGORY WARREN Sex: Male : 1975 Age: 49y 01/31/2025 07:12 AM EDT ED Arrival:11:31 01/29/2025 Status: Recent Travel:no EDT Language:eng Adv Directive:No Isolation Status: Infectious Disease Ethnicity:N Fall Risk:no risk Exposure:no Measurements:5'5 / 165.1 Self-Harm Status:no risk Sepsis Screen:negative cm 225.0 lb / 102.1 kg Chief Complaint:RIGHT LOWER EXTREMITY REDNESS, RIGHT LOWER EXTREMITY SWELLING, (none), and (pt has approx 8 areas around his right knee that are raised and red with purulent drainage present. ) ALLERGIES No Known Drug Allergies 1 of 4 Visit Overview - GREGORY WARREN, : 1975, , HOME MEDICATIONS metformin ER 500 mg tablet,extended release 24 hr: TAKE 1 TABLET BY MOUTH TWICE DAILY PAST MEDICAL HISTORY / PROBLEMS Diabetes Mellitus See nurses notes PAST SURGICAL HISTORY No Surgeries SOCIAL HISTORY Smoking status: No Alcohol use: No Drug use: Yes ED COURSE MEDICATIONS GIVEN IN EMERGENCY DEPARTMENT 12:20 01/29/25 IV NS 0.9 % 1000 mL 250 mL/hr Piperacillin-Tazobac (Zosyn) IVPB 3.375gm/50ml 12:21 01/29/25 NS 3.375 g diluted in sodium chloride IVPB 0.9 % Minibag+ 50 mL 100 mL/hr CefTRIAXone (Rocephin) IVPB 2gm/50ml NS 2 g 14:36 01/29/25 diluted in sodium chloride IVPB 0.9 % Minibag+ 50 mL 100 mL/hr Vancomycin 1.5gm/NS 300ml IVPB Premix 1.5 g 16:13 01/29/25 200 mL/hr 17:28 01/29/25 Acetaminophen (Tylenol) PO 975 mg IV SITE INFORMATION 12:09 01/29/25 Site #1 left, 20g. Saline lock. INTAKE OUTPUT 2 of 4 Visit Overview - GREGORY WARREN, : 1975, , REASSESMENT (most recent) 12:31 01/29/25. Ambulatory to room. GENERAL / NEURO / PSYCH: Oriented X 4. Alert. Appears in no acute distress. EXTREMITIES: Extremity pulses are within normal limits. Extremities exhibit normal ROM. Neuro-vascular status intact to the extremity. No lower extremity edema. Normal gait. Right knee: tenderness, swelling and erythema (multiple quarter sized lesions with redness, black eschar and purulent drainage noted.). SKIN: Skin is warm and dry. VITAL SIGNS First Vitals Last Vitals Temp 11:44 01/29/25 98.2 F Temp 21:19 01/29/25 98.1 F BP 11:44 01/29/25 170/94 BP 21:19 01/29/25 170/95 HR 11:44 01/29/25 80 HR 21:19 01/29/25 79 RR 11:44 01/29/25 18 RR 21:19 01/29/25 16 O2 Sat 11:44 01/29/25 96% O2 Sat 21:19 01/29/25 99% Pain 11:44 01/29/25 8 Pain 21:19 01/29/25 0 ETCO2 11:44 01/29/25 ETCO2 21:19 01/29/25 GCS 11:44 01/29/25 GCS 21:19 01/29/25 RTS 11:44 01/29/25 RTS 21:19 01/29/25 PROCEDURES NURSING INTERVENTIONS LABS / STUDIES LABS / STUDIES ORDERED Blood Culture [Emre] # 1 Blood Culture [Emre] # 2 CBC w Diff C[address] Brain wo Cont Drug Screen Urine Medic EKG - ED Lactate, Serum Urinalysis 3 of 4 Visit Overview - GREGORY WARREN, : 1975, , CLINICAL IMPRESSION CELLULITIS OF THE RIGHT KNEE AND RIGHT LOWER LEG CHANGED MENTAL STATUS WITH CONFUSION MULTIPLE SUPERFICIAL ABSCESSES TO THE RIGHT LOWER EXTREMITY 4 of 4 Normal [facility] ED VITALS FLOW SHEETon 01-31 ED VITALS FLOW SHEET Vitals - DAVIN WARREN IS, : 1975, , Vital Sign Flow Sheet [address] [place] [address] [phone] 01/29/2025 Patient: GREGORY WARREN Sex: Male : 1975 Age: 49y Measurements Wt: 102.1 kg, Ht/Franklin: 65.0 in, BMI: 37.44 Measured Felicia Time BP MAP HR RR O2Sat ETCO2 Temp n GCS RTS 21:19 170/95 120 79 16 99% 98.1 F 0 01/29/2025 11:44 170/94 119 80 18 96% 98.2 F 8 01/29/2025 1 of 1 Normal [facility] LABORATORYOrdered By: [employer] CONTRIBUTOR_SYSTEM on 01-31-2025 Actin (Smooth Muscle) Antibody (LC) 12 Units Invalid Interpretation Code 0-19 Sendouts SS Comment on above: Result Comment: Nega tive 0 - 19 Weak positive 20 - 30 Moderate to strong positive >30 Actin Antibodies are found in 52-85% of patients with autoimmune hepatitis or chronic active hepatitis and in 22% of patients with primary biliary cirrhosis. Performed At: [facility] [place] [id number] Viktoriya Sabillon PhD Ph:[phone] Anti-CCP Ab, IgG/IgA (LC) 8 Units Invali d Interpretation Code 0-19 Sendouts SS Comment on above: Result Comment: Nega tive <20 Weak positive 20 - 39 Moderate positive 40 - 59 Strong positive >59 Performed At: [facility] [place], [place] [id number] Viktoriya Sabillon PhD Ph:[phone] Anti-dsDNA Antibodies (LC) Int unit/mL Inval id Interpretation Code 0-9 Sendouts Comment on above: Result Comment: Nega tive <5 Equivocal 5 - 9 Positive >9 Performed At: [facility] [place] [id number] Viktoriya Sabillon PhD Ph:[phone] Antiparietal Cell Antibody (LC) Units Invalid Interpretation Code 0.0-20.0 AH Sendouts SS Comment on above: Result Comment: Nega tive 0.0 - 20.0 Equivocal 20.1 - 24.9 Positive >24.9 Parietal Cell Antibodies are found in 90% of patients with pernicious anemia and 30% of first degree relatives with pernicious anemia. Performed At: [address] [id number] Viktoriya Sabillon PhD Ph:[phone] Antiribosomal P Abs (LC) AI Invalid Interpretation Code 0.0-0.9 AH Sendouts SS Comment on above: Result Comment: Perf ormed At: [address] [id number] Viktoriya Sabillon PhD Ph:[phone] Mitochondrial (M2) Antibody (LC) Units Invalid Interpretation Code 0.0-20.0 AH Sendouts SS Comment on above: Result Comment: Nega tive 0.0 - 20.0 Equivocal 20.1 - 24.9 Positive >24.9 Mitochondrial (M2) Antibodies are found in 90-96% of patients with primary biliary cirrhosis. Performed At: [address] [id number] Viktoriya Sbaillon PhD Ph:[phone] Rheumatoid Factor (RF) (LC) 10.8 Int unit/mL Inv alid Interpretation Code <14.0 AH Sendouts Comment on above: Result Comment: Perf ormed At: [address] [id number] Viktoriya Sabillon PhD Ph:[phone] Vitamin B1 Whl Bld (LC) 121.0 nmol/L Invalid Interpretation Code 66.5-200.0 AH Sendouts SS Comment on above: Result Comment: This test was developed and its performance characteristics determined by [employer]. It has not been cleared or approved by the Food and Drug Administration. Performed At: [address] [id number] Kelvin Caba MD Ph:[phone] LABORATORYOrdered By: DINORAH HENRY CONTRIBUTOR_SYSTEM on 01-31-2025 Antinuclear Ab Screen Negative Invalid Interpretation Code Negative AH Sendouts Comment on above: Result Comment: Anti -nuclear antibody test is used as an aid in diagnosis of systemic autoimmune diseases. Where positive and clinically warranted, follow-up using disease-specific testing is recommended. Low positive titers are not uncommon with advanced age, certain chronic infections, and malignancies among others. Test methodology: Indirect fluorescence immunoassay (IFA) using HEp-2 cells. Performed By: [place] [address] [employer] Director: Valente Escamilla III, M.D. CLIA#: [id number] Centromere AI Invalid Interpretation Code <1.0 AH Sendouts Comment on above: Result Comment: Anti -centromere antibody is used as in aid in diagnosis of systemic sclerosis. Clinical correlation is required. Test Methodology: Multiplex flow immunoassay. Performed By: [place] [address] [employer] Director: Valente Escamilla III, M.D. CLIA#: [id number] Centromere Ab Qualitative Negative Invali d Interpretation Code Negative AH Sendouts Comment on above: Result Comment: Perf ormed By: [place] [address] [employer] Director: Valente Escamilla III, M.D. CLIA#: [id number] Chromatin Ab Qualitative Negative Invalid Interpretation Code Negative Sendouts Comment on above: Result Comment: Perf ormed By: [place] [address] [employer] Director: Valente Escamilla III, M.D. CLIA#: [id number] Chromatin Antibody AI Invalid Interpretation Code <1.0 Sendouts Comment on above: Result Comment: Test Methodology: Multiplex flow immunoassay. Anti-chromatin antibody is used as an aid in diagnosis of systemic lupus erythematosus. Clinical correlation is required. Test Methodology: Multiplex flow immunoassay. Performed By: [place] [address] [employer] Director: Valente Escamilla III, M.D. CLIA#: [id number] SABIHA 1 Antibody AI Invalid Interpretation Code <1.0 Sendouts Comment on above: Result Comment: Perf ormed By: [facility] [employer] [address] [place] [address] [employer] Director: Valente Escamilla III, M.D. CLIA#: [id number] SABIHA 1 Antibody Qual Negative Invalid Interpretation Code Negative AH Sendouts SS Comment on above: Result Comment: Anti -SABIHA-1 antibody is used as an aid in diagnosis of polymyositis and dermatomyositis especially with pulmonary involvement. A negative result cannot rule out polymyositis or dermatomyositis. Clinical correlation is required. Test Methodology: Multiplex flow immunoassay. Performed By: [facility] [address] [place] [address] [employer] Director: Valente Escamilla III, M.D. CLIA#: [id number] Ribosomal AFRICAN HISTORY PROFESSOR AI Invalid Interpretation Code <1.0 AH Sendouts SS Comment on above: Result Comment: Perf ormed By: [place] [address] [employer] Director: Valente Escamilla III, M.D. CLIA#: [id number] Ribosomal AFRICAN HISTORY PROFESSOR Qualitative Negative Invali d Interpretation Code Negative AH Sendouts SS Comment on above: Result Comment: Anti -Ribosomal RNA (Ribosomal P) antibody is used as an aid in diagnosis of systemic autoimmune diseases especially systemic lupus erythematosus and mixed connective tissue disease. Cross-reactivity with Anti-mendez antibody is not uncommon. Clinical correlation is required. Test Methodology: Multiplex flow immunoassay. Performed By: [facility] [address] [place] [address] [employer] Director: Valente Escamilla III, M.D. CLIA#: [id number] AFRICAN HISTORY PROFESSOR Antibody AI Invalid Interpretation Code <1.0 AH Sendouts SS Comment on above: Result Comment: Anti -AFRICAN HISTORY PROFESSOR antibody is used as an aid in diagnosis of systemic autoimmune diseases especially systemic lupus erythematosus and mixed connective tissue disease. Cross-reactivity with Anti-mendez antibody is not uncommon. Clinical correlation is required. Test Methodology: Multiplex flow immunoassay. Performed By: [facility] [address] [place] [address] [employer] Director: Valente Escamilla III, M.D. CLIA#: [id number] AFRICAN HISTORY PROFESSOR Antibody Qualitative Negative Invalid Interpretation Code Negative Sendouts Comment on above: Result Comment: Perf ormed By: [place] [address] [employer] Director: Valente Escamilla III, M.D. CLIA#: [id number] Scleroderma Ab, IgG Qualitative Negative Invalid Interpretation Code Negative AH Sendouts Comment on above: Result Comment: Perf ormed By: [place] [address] [employer] Director: Valente Escamilla III, M.D. CLIA#: [id number] Scleroderma IgG Ab AI Invalid Interpretation Code <1.0 AH Sendouts SS Comment on above: Result Comment: Scl- 70/Scleroderma antibody test is used as an aid in diagnosis of systemic sclerosis especially the diffuse cutaneous form. A negative result cannot rule out systemic sclerosis. The final interpretation should consider clinical picture and other test results such as anti-centromere antibody. Test Methodology: Multiplex flow immunoassay. Performed By: [place] [address] [employer] Director: Valente Escamilla III, M.D. CLIA#: [id number] Sm Antibody AI Invalid Interpretation Code <1.0 Sendouts Comment on above: Result Comment: Perf ormed By: [place] [address] [employer] Director: Valente Escamilla III, M.D. CLIA#: [id number] Sm Antibody Qual Negative Invalid Interpretation Code Negative Sendouts Comment on above: Result Comment: Anti -Sm (Mendez) antibody is used as an aid in diagnosis of systemic lupus erythematosus and its presence is associated with renal disease. A negative result cannot rule out systemic lupus erythematosus. Clinical correlation is required. Test Methodology: Multiplex flow immunoassay. Performed By: [place] [address] [employer] Director: Valente Escamilla III, M.D. CLIA#: [id number] SS-A Antibody AI Invalid Interpretation Code <1.0 Sendouts Comment on above: Result Comment: Test Methodology: Multiplex flow immunoassay. Anti-SSA (anti-Ro) antibody is used as an aid in diagnosis of a variety of systemic autoimmune diseases, Sjogren's syndrome among others. Clinical correlation is required. Test Methodology: Multiplex flow immunoassay. Performed By: [facility] [address] [place] [address] [employer] Director: Valente Escamilla III, M.D. CLIA#: [id number] SS-B Antibody AI Invalid Interpretation Code <1.0 AH Sendouts SS Comment on above: Result Comment: Anti -SSB (anti-La) antibody is used as an aid in diagnosis of a variety of systemic autoimmune diseases, especially for Sjogren's syndrome and systemic lupus erythematosus. Clinical correlation is required. Test Methodology: Multiplex flow immunoassay. Performed By: [place] [address] [employer] Director: Valente Escamilla III, M.D. CLIA#: [id number] SSA Antibody Qualitative Negative Invalid Interpretation Code Negative AH Sendouts SS Comment on above: Result Comment: Perf ormed By: [place] [address] [employer] Director: Valente Escamilla III, M.D. CLIA#: [id number] SSB Antibody Qualitative Negative Invalid Interpretation Code Negative AH Sendouts SS Comment on above: Result Comment: Perf ormed By: [place] [address] [employer] Director: Valente Escamilla III, M.D. CLIA#: [id number] LABORATORYOrdered By: SYSTEM SYSTEM on 01-31-2025 Complement C3 [Mass/Vol] 142.0 mg/dL Normal 90. 0 - 170.0 mg/dL AH ADM SS Complement C4 [Mass/Vol] 28.0 mg/dL Normal 16. 0 - 38.0 mg/dL AH ADM SS TPO Ab IA Qn 42 unit/mL Normal 0 - 60 unit/mL AH ADM SS MGon 01-31-2025 Magnesium [Mass/Vol] 2.1 mg/dL Normal 1.6-2.4 [facility] Comment on above: Performed By: #### B MP, GFR, ANEU, ADIFF, MG, CBC, HFP #### [address] [address] aTPOon 01-31-2025 anti-Thyroid Peroxidase 42 units/ml Normal 0-60 [facility] Comment on above: Performed By: #### B MP, GFR, ANEU, ADIFF, MG, CBC, HFP #### [address] [address] .Auto Diffon 01-30-2025 Basophil, Absolute 0.0 10 3/mcL Normal 0.0-0.3 [facility] Comment on above: Performed By: #### B MP, GFR, ANEU, ADIFF, MG, CBC, HFP #### [address] [address] Basophils/100 WBC (Bld) 0.5 % Normal 0.0-2.5 [facility] Comment on above: Performed By: #### B MP, GFR, ANEU, ADIFF, MG, CBC, HFP #### [address] [address] Eosinophil, Absolute 0.1 10 3/mcL Normal 0.0-0.7 [facility] Comment on above: Performed By: #### B MP, GFR, ANEU, ADIFF, MG, CBC, HFP #### [address] [address] Eosinophils/100 WBC (Bld) 1.6 % Normal 0.0-6.0 [facility] Comment on above: Performed By: #### B MP, GFR, ANEU, ADIFF, MG, CBC, HFP #### [address] [address] Lymphocyte, Absolute 1.4 10 3/mcL Normal 0.9-4.3 [facility] [facility] Comment on above: Performed By: #### B MP, GFR, ANEU, ADIFF, MG, CBC, HFP #### [address] [address] Lymphocytes/100 WBC (Bld) 22.0 % Normal 20.0-40.0 [facility] Comment on above: Performed By: #### B MP, GFR, ANEU, ADIFF, MG, CBC, HFP #### [address] [address] Monocyte, Absolute 0.3 10 3/mcL Normal 0.1-1.4 [facility] MAIN Comment on above: Performed By: #### B MP, GFR, ANEU, ADIFF, MG, CBC, HFP #### [address] [address] Monocytes/100 WBC (Bld) 5.4 % Normal 2.0-13.0 [facility] MAIN Comment on above: Performed By: #### B MP, GFR, ANEU, ADIFF, MG, CBC, HFP #### [address] [address] Neutrophils/100 WBC (Bld) 70.5 % Normal 50.0-75.0 [facility] Comment on above: Performed By: #### B MP, GFR, ANEU, ADIFF, MG, CBC, HFP #### [address] [address] .GFRon 01-30-2025 Estimated Glomerular Filtration Rate 113 ml/min/1.73sqm Normal [facility] Comment on above: Result Comment: Stages of Chronic Kidney Disease (CKD) Stage Description eGFR(ml/min/1.73 sq.m.) CKD 1 Normal kidney function or >=90 normal kindney function with possible kidney damage (ex. Proteinuria) CKD 2 Kidney damage with mild loss 60-89 of kidney function CKD 3a Mild to moderate loss of kidney 45-59 function CKD 3b Moderate to severe loss of 30-44 of kindey function CKD 4 Severe loss of kidney function 15-29 CKD 5 Kidney failure <15 Note: (go live 2024) the eGFR calculation was updated to the 2020 CKD-EPI creatinine equation without a race factor to calculate the eGFR results. Performed By: #### B MP, GFR, ANEU, ADIFF, MG, CBC, HFP #### [address] [address] .NEUABSon 01-30-2025 Neutrophil, Absolute 4.4 10 3/mcL Normal 2.3-8.1 [facility] Comment on above: Performed By: #### B MP, GFR, ANEU, ADIFF, MG, CBC, HFP #### [address] [address] A1Con 01-30-2025 Glucose [Mass/Vol] 200 mg/dL Normal [facility] MAIN Comment on above: Result Comment: Shannen mated Average Glucose calculated by equation ((28.7xA1C)-46.7) Estimated average glucose (eAG) is a calculated value from Hemoglobin A1C and is medical customer service representative of the average blood glucose level in the last 2-3 month period. Normal range: less than 114 mg/dL Performed By: #### B MP, GFR, ANEU, ADIFF, MG, CBC, HFP #### [place] [address] HbA1c (Bld) [Mass fraction] 8.6 % High 4.0-6.0 [facility] MAIN Comment on above: Performed By: #### B MP, GFR, ANEU, ADIFF, MG, CBC, HFP #### [place] [address] Sukhdeep 01-30-2025 Ammonia 15 mcmol/l Normal 11-32 [facility] Comment on above: Performed By: #### B MP, GFR, ANEU, ADIFF, MG, CBC, HFP #### [place] [address] B12on 01-30-2025 Cobalamin (Vitamin B12) [Mass/Vol] 356 pg/mL Normal 211-911 [facility] Comment on above: Performed By: #### B MP, GFR, ANEU, ADIFF, MG, CBC, HFP #### [place] [address] CBCon 01-30-2025 Erythrocyte distribution width (RBC) [Ratio] 12.9 % Normal 11.5-15.5 [facility] Comment on above: Performed By: #### B MP, GFR, ANEU, ADIFF, MG, CBC, HFP #### [place] [address] Hematocrit (Bld) [Volume fraction] 38.0 % Low 40.0-52.0 [facility] Comment on above: Performed By: #### B MP, GFR, ANEU, ADIFF, MG, CBC, HFP #### [place] [address] Hgb 13.0 G/dL Normal 13.0-17.5 [facility] Comment on above: Performed By: #### B MP, GFR, ANEU, ADIFF, MG, CBC, HFP #### [place] [address] MCH (RBC) [Entitic mass] 28.3 pg Normal 27.0-33.0 [facility] Comment on above: Performed By: #### B MP, GFR, ANEU, ADIFF, MG, CBC, HFP #### [place] [address] MCHC 34.1 G/dL Normal 32.0-36.0 [facility] Comment on above: Performed By: #### B MP, GFR, ANEU, ADIFF, MG, CBC, HFP #### [place] [address] MCV (RBC) [Entitic vol] 83.0 fL Normal 81.0-100.0 [facility] Comment on above: Performed By: #### B MP, GFR, ANEU, ADIFF, MG, CBC, HFP #### [place] [address] Platelet 231 10 3/mcL Normal 150-450 [facility] MA[facility] Comment on above: Performed By: #### B MP, GFR, ANEU, ADIFF, MG, CBC, HFP #### [place] [address] Platelet mean volume (Bld) [Entitic vol] 7.6 fL Normal 6.4-10.5 [facility] Comment on above: Performed By: #### B MP, GFR, ANEU, ADIFF, MG, CBC, HFP #### [place] [address] RBC 4.58 10 6/mcL Normal 4.50-6.00 [facility] Comment on above: Performed By: #### B MP, GFR, ANEU, ADIFF, MG, CBC, HFP #### [place] [address] WBC 6.3 10 3/mcL Normal 4.5-10.8 [facility] Comment on above: Performed By: #### B MP, GFR, ANEU, ADIFF, MG, CBC, HFP #### [place] [address] CMPon 01-30-2025 Albumin Level 3.2 G/dL Normal 3.2-4.8 [facility] Comment on above: Performed By: #### B MP, GFR, ANEU, ADIFF, MG, CBC, HFP #### [place] [address] Albumin/Globulin [Mass ratio] 1.0 {ratio} Normal 0.9-1.6 [facility] Comment on above: Performed By: #### B MP, GFR, ANEU, ADIFF, MG, CBC, HFP #### [place] [id number] ALP [Catalytic activity/Vol] 66 U/L Normal 38-126 [facility] MA[facility] Comment on above: Performed By: #### B MP, GFR, ANEU, ADIFF, MG, CBC, HFP #### [place] [id number] ALT [Catalytic activity/Vol] 14 U/L Normal 12-55 [facility] MA[facility] Comment on above: Performed By: #### B MP, GFR, ANEU, ADIFF, MG, CBC, HFP #### [place] [id number] AST [Catalytic activity/Vol] 14 U/L Normal 8-34 [facility] MA[facility] Comment on above: Performed By: #### B MP, GFR, ANEU, ADIFF, MG, CBC, HFP #### [place] [id number] Bili Total 0.40 mg/dL Normal 0.20-1.20 [facility] MA[facility] Comment on above: Result Comment: Use of this assay is not recommended for patients undergoing treatment with eltrombopag due to the potential for falsely elevated results. Performed By: #### B MP, GFR, ANEU, ADIFF, MG, CBC, HFP #### [place] [address] BUN/Creatinine Ratio 16.4 ratio Normal 10.0-22.0 [facility] MAIN Comment on above: Performed By: #### B MP, GFR, ANEU, ADIFF, MG, CBC, HFP #### [place] [address] Calcium [Mass/Vol] 9.3 mg/dL Normal 8.7-10.4 [facility] MAIN Comment on above: Performed By: #### B MP, GFR, ANEU, ADIFF, MG, CBC, HFP #### [address] [address] Chloride [Moles/Vol] 102 mmol/L Normal 98-110 [facility] MA[facility] Comment on above: Performed By: #### B MP, GFR, ANEU, ADIFF, MG, CBC, HFP #### [address] [address] CO2 [Moles/Vol] 29 mmol/L Normal 22-32 [facility] MA[facility] Comment on above: Performed By: #### B MP, GFR, ANEU, ADIFF, MG, CBC, HFP #### [address] [address] Creatinine [Mass/Vol] 0.73 mg/dL Normal 0.60-1.40 [facility] Comment on above: Result Comment: Test ing performed on Gazemetrix analyzer using enzymatic creatinine methodology. Performed By: #### B MP, GFR, ANEU, ADIFF, MG, CBC, HFP #### [place] [id number] Electrolyte Balance 7.0 mEq/L Normal 4.0-15.0 [facility] MA[facility] Comment on above: Performed By: #### B MP, GFR, ANEU, ADIFF, MG, CBC, HFP #### [address] [address] Globulin 3.3 G/dL Normal 2.5-4.2 [facility] MA[facility] Comment on above: Performed By: #### B MP, GFR, ANEU, ADIFF, MG, CBC, HFP #### [address] [address] Glucose [Mass/Vol] 279 mg/dL High 70-110 [facility] MA[facility] Comment on above: Performed By: #### B MP, GFR, ANEU, ADIFF, MG, CBC, HFP #### [address] [address] Potassium [Moles/Vol] 4.2 mmol/L Normal 3.5-5.0 [facility] Comment on above: Performed By: #### B MP, GFR, ANEU, ADIFF, MG, CBC, HFP #### [address] [address] Sodium [Moles/Vol] 138 mmol/L Normal 136-145 [facility] MA[facility] Comment on above: Performed By: #### B MP, GFR, ANEU, ADIFF, MG, CBC, HFP #### [place] [address] Total Protein 6.5 G/dL Normal 5.7-8.2 [facility] Comment on above: Performed By: #### B MP, GFR, ANEU, ADIFF, MG, CBC, HFP #### [place] [address] Urea nitrogen [Mass/Vol] 12.0 mg/dL Normal 8.0-22.0 [facility] Comment on above: Performed By: #### B MP, GFR, ANEU, ADIFF, MG, CBC, HFP #### [place] [address] CORTon 01-30-2025 Cortisol Level 13.1 mcg/dL Normal [facility] MA[facility] Comment on above: Result Comment: Dwight isol AM Reference Range 6.5-26.0 mcg/dL Cortisol PM Reference Range 3.5-15.0 mcg/dL Performed By: #### B MP, GFR, ANEU, ADIFF, MG, CBC, HFP #### [place] [address] CRPon 01-30-2025 CRP [Mass/Vol] mg/L Normal 0.0-1.0 [facility] Comment on above: Performed By: #### B MP, GFR, ANEU, ADIFF, MG, CBC, HFP #### [place] [id number] DRUGSon 01-30-2025 Acetaminophen [Mass/Vol] ug/mL Low 10.0-20.0 [facility] MA[facility] Comment on above: Performed By: #### B MP, GFR, ANEU, ADIFF, MG, CBC, HFP #### [place] [id number] Ethanol Level <10.0 Normal [facility] MA[facility] Comment on above: Performed By: #### B MP, GFR, ANEU, ADIFF, MG, CBC, HFP #### [place] [address] Salicylate Lvl (ds) <3.0 Low 10.0-25.0 [facility] Comment on above: Performed By: #### B MP, GFR, ANEU, ADIFF, MG, CBC, HFP #### [place] [address] Serum Drugs screened: See Below Normal [facility] Comment on above: Result Comment: This drug screen is a presumptive screening only. No confirmation will be performed unless requested. Drugs included in the serum drug screen are: Threshold Ethanol 10.0 mg/dL Salicylate 2.0 mg/dl Acetaminophen 2.0 mcg/mL Testing has been performed FOR MEDICAL PURPOSES ONLY. Performed By: #### B MP, GFR, ANEU, ADIFF, MG, CBC, HFP #### [place] [address] ESRon 01-30-2025 Erythrocyte Sed Rate 17 mm/hr High 0-15 [facility] MA[facility] Comment on above: Performed By: #### B MP, GFR, ANEU, ADIFF, MG, CBC, HFP #### [place] [address] FT4on 01-30-2025 Free T4 [Mass/Vol] 1.35 ng/dL Normal 0.89-1.76 [facility] MAIN Comment on above: Result Comment: No te - New Reference Range in effect 19 Performed By: #### B MP, GFR, ANEU, ADIFF, MG, CBC, HFP #### [place] [address] LABORATORYOrdered By: SYSTEM SYSTEM on 01-30-2025 Glucose [Mass/Vol] 200 mg/dL Invalid Interpretation Code AH Auto Chem SS Comment on above: Interpretive Data: E stimated average glucose (eAG) is a calculated value from Hemoglobin A1C and is medical customer service representative of the average blood glucose level in the last 2-3 month period. Normal range: less than 114 mg/dL HbA1c (Bld) [Mass fraction] 8.6 % High 4.0 - 6.0 % AH Auto Chem SS Lactate [Moles/Vol] 1.6 mmol/L Normal 0.5 - 2. 2 mmol/L AH ADM SS Ammonia (P) [Moles/Vol] 15 umol/L Normal 11 - 32 mcmol/L ADM SS Cobalamin (Vitamin B12) [Mass/Vol] 356 pg/mL Normal 211 - 911 pg/mL AH ADM SS Cortisol [Mass/Vol] 13.1 ug/dL Invalid Interpretation Code ADM SS Comment on above: Interpretive Data: C ortisol AM Reference Range 6.5-26.0 mcg/dL Cortisol PM Reference Range 3.5-15.0 mcg/dL CRP [Mass/Vol] mg/dL Normal 0.0 - 1.0 mg/dL ADM SS Free T4 [Mass/Vol] 1.35 ng/dL Normal 0.89 - 1.76 ng/dL ADM SS Comment on above: Interpretive Data: * *Note - New Reference Range in effect 19 T3 [Mass/Vol] 126 ng/dL Normal 60 - 181 ng/dL ADM SS TSH Qn 1.466 mIU/mL Normal 0.550 - 4.780 mIU/mL ADM SS LABORATORYOrdered By: Vanessa Vasquez on 01-30-2025 Acetaminophen [Mass/Vol] mcg/mL Low 10. 0 - 20.0 mcg/mL ADM SS Ethanol [Mass/Vol] mg/dL Invalid Interpretation Code ADM SS Salicylates [Mass/Vol] mg/dL Low 10.0 - 25.0 mg/dL ADM SS Serum Drugs screened: See Below 37 (01/30/25 10:27 AM) Normal Chemistry S Comment on above: Interpretive Data: T his drug screen is a presumptive screening only. No confirmation will be performed unless requested. Drugs included in the serum drug screen are: Threshold Ethanol 10.0 mg/dL Salicylate 2.0 mg/dl Acetaminophen 2.0 mcg/mL Testing has been performed FOR MEDICAL PURPOSES ONLY. LABORATORYOrdered By: RealOpsBarron Kate CONTRIBUTOR_SYSTEM on 01-30-2025 Copper Lvl (LC) 91 UG/DL Invalid Interpretation Code 69-132 Sendouts SS Comment on above: Result Comment: This test was developed and its performance characteristics determined by [employer]. It has not been cleared or approved by the Food and Drug Administration. Detection Limit = 5 Performed At: [address] [place] [id number] Kelvin Caba MD Ph:[phone] LABORATORYOrdered By: Faisal on 01-30-2025 ESR 15 minute reading (Bld) [Velocity] 17 mm/hr High 0 - 15 mm/hr AH Auto Heme SS LACon 01-30-2025 Lactic Acid Lvl 1.6 mmol/L Normal 0.5-2.2 [facility] MAIN Comment on above: Performed By: #### B MP, GFR, ANEU, ADIFF, MG, CBC, HFP #### [address] [address] MGon 01-30-2025 Magnesium [Mass/Vol] 1.9 mg/dL Normal 1.6-2.4 [facility] MAIN Comment on above: Performed By: #### B MP, GFR, ANEU, ADIFF, MG, CBC, HFP #### [address] [address] MRI BRAIN W/O CONTRASTon MRI BRAIN W/O CONTRAST ORIGINAL EXAMINATION: MRI OF THE BRAIN WITHOUT CONTRAST 01/30/2025 2:04 pm TECHNIQUE: Multiplanar multisequence MRI of the brain was performed without the administration of intravenous contrast. COMPARISON: None. HISTORY: ORDERING SYSTEM PROVIDED HISTORY: Reason for Exam: encephalopathy FINDINGS: INTRACRANIAL STRUCTURES/VENTRICLES: There is no acute infarct. No mass effect or midline shift. No evidence of an acute intracranial hemorrhage. The ventricles and sulci are normal in size and configuration. The sellar/suprasellar regions appear unremarkable. The normal signal voids within the major intracranial vessels appear maintained. ORBITS: The visualized portion of the orbits demonstrate no acute abnormality. SINUSES: The visualized paranasal sinuses and mastoid air cells demonstrate no acute abnormality. BONES/SOFT TISSUES: The bone marrow signal intensity appears normal. The soft tissues demonstrate no acute abnormality. IMPRESSION: Unremarkable MRI brain. Interpreted by: Bobby Patricia MD Preliminary Report By: Bobby Patricia MD Electronically signed By Bobby Patricia MD Dictated Date: 01/30/2025 3:19:22 PM Prelim Date: 01/30/2025 3:20:28 PM Sign Date: 01/30/2025 3:20:28 PM Ordering Provider: LANDY Lewis [facility] T3on 01-30-2025 Total T3 126 ng/dL Normal 60-181 [facility] Comment on above: Performed By: #### B MP, GFR, ANEU, ADIFF, MG, CBC, HFP #### [facility] [address] [place] [address] TSHon 01-30-2025 TSH 1.466 mIU/mL Normal 0.550-4.78 0 [facility] MAIN Comment on above: Performed By: #### B MP, GFR, ANEU, ADIFF, MG, CBC, HFP #### [facility] [address] [place] [address] XR KNEE THREE VIEWS RIGHTon 01-30-2025 XR KNEE THREE VIEWS RIGHT ORIGINAL EXAMINATION: THREE XRAY VIEWS OF THE RIGHT KNEE 01/30/2025 5:39 pm COMPARISON: None. HISTORY: ORDERING SYSTEM PROVIDED HISTORY: Reason for Exam: trauma, pain FINDINGS: No evidence of acute fracture or dislocation. No focal osseous lesion. No evidence of joint effusion. No focal soft tissue abnormality. IMPRESSION: No acute abnormality of the knee. Interpreted by: Ariel Castillo Preliminary Report By: Ariel Castillo Electronically signed By Ariel Castillo Dictated Date: 01/30/2025 6:18:53 PM Prelim Date: 01/30/2025 6:19:15 PM Sign Date: 01/30/2025 6:19:15 PM Ordering Provider: DUANE BAGLEY [facility] MAIN CBC + DIFFon 01-29-2025 Baso # 0.02 x10EE3/UL Normal 0.00 - 0.10 [facility] Comment on above: Performed By: #### 2 [address]15 ####[facility],[address] [place], [place] [id number] Basophils/100 WBC (Bld) 0.3 % Normal 0.0 - 2.0 [facility] Comment on above: Performed By: #### 2 77236 ####[facility],[address] [place] [address] CBC + DIFF Normal [facility] Comment on above: Result Comment: CBC- COMPLETE BLOOD COUNT Performed By: #### 2 69563 ####[facility],[address] [place] [address] EO # 0.16 x10EE3/UL Normal 0.00 - 0.50 [facility] Comment on above: Performed By: #### 2 28812 ####[facility],[address] [place] [address] Eosinophils/100 WBC (Bld) 2.0 % Normal 0.0 - 7.0 [facility] Comment on above: Performed By: #### 2 30986 ####[facility],[address] [place], [place] [id number] Erythrocyte distribution width (RBC) [Ratio] 13.1 % Normal 12.0 - 15.6 [facility] Comment on above: Performed By: #### 2 [address] ####[place] [address] Hematocrit (Bld) [Volume fraction] 39.2 % Low 40.0 - 52.0 [facility] Comment on above: Performed By: #### 2 65418 ####[facility],[address] [place] [address] Hemoglobin (Bld) [Mass/Vol] 13.5 g/dL Normal 13.0 - 17.5 [facility] Comment on above: Performed By: #### 2 35092 ####[facility],[address] [place] [address] Lymph # 1.96 x10EE3/UL Normal 0.80 - 2.80 [facility] Comment on above: Performed By: #### 2 11756 ####[facility],[address] [place] [address] Lymphocytes/100 WBC (Bld) 23.5 % Normal 20 .0 - 45.0 [facility] Comment on above: Performed By: #### 2 52246 ####[facility],[address] [place], [place] [id number] MANUAL DIFF N/A Normal [facility] Comment on above: Performed By: #### 2 93632 ####[facility],[address] [place] [address] MCH (RBC) [Entitic mass] 28 pg Normal 27 - 33 [facility] Comment on above: Performed By: #### 2 79335 ####[facility],[address] [place] [address] MCHC 35 X10 3 Normal 32 - 36 [facility] Comment on above: Performed By: #### 2 99292 ####[facility],[address] [place] [address] MCV (RBC) [Entitic vol] 83 fL Normal 81 - 98 [facility] Comment on above: Performed By: #### 2 30776 ####[facility],[address] [place] [address] Owen # 0.53 x10EE3/UL Normal 0.20 - 1.00 [facility] Comment on above: Performed By: #### 2 85631 ####[facility],[address] [place] [address] MONOS % 6.4 % Normal 0.0 - 10.0 [facility] Comment on above: Performed By: #### 2 78446 ####[facility],[address] [place] [address] Morphology Feliciano (Bld) [Interp] N/A Normal [facility] Comment on above: Performed By: #### 2 92979 ####[facility],[address] [place] [address] Neut # 5.66 x10EE3/UL Normal 1.50 - 7.10 [facility] Comment on above: Performed By: #### 2 90355 ####[facility],[address] [place] [address] Neutrophils/100 WBC (Bld) 67.9 % Normal 46 .0 - 76.0 [facility] Comment on above: Performed By: #### 2 41237 ####[facility],[address] [place] [address] PLATELET 282 x10EE3/UL Normal 150 - 450 [facility] Comment on above: Performed By: #### 2 64597 ####[facility],[address] [place] [address] Platelet mean volume (Bld) [Entitic vol] 7.4 fL Normal 6.4 - 10.5 [facility] Comment on above: Result Comment: AUTO MATED DIFFERENTIAL Performed By: #### 2 82965 ####[facility],[address] [place] [address] RBC 4.75 x 10EE6/UL Normal 4.50 - 6.00 [facility] Comment on above: Performed By: #### 2 14910 ####[facility],[address] [place] [address] WBC 8.3 x 10EE3/UL Normal 4.5 - 10.8 [facility] Comment on above: Performed By: #### 2 37554 ####[facility],[address] [place], [place] [id number] CMP with eGFRon 01-29-2025 AGE 49 years Normal [facility] Comment on above: Performed By: #### 2 41521 #### [facility],[address] [place] [address] Albumin [Mass/Vol] 3.0 g/dL Low 3.4 - 5.0 [facility] Comment on above: Performed By: #### 2 23182 #### [facility],[address] [place] [address] Albumin/Globulin [Mass ratio] 0.9 {ratio} Normal 0.9 - 1.6 [facility] Comment on above: Performed By: #### 2 37074 #### [facility],[address] [place] [address] ALK PHOS 71 U/L Normal 46 - 116 [facility] Comment on above: Performed By: #### 2 40804 #### [facility],[address] [place] [address] ALT [Catalytic activity/Vol] 20 U/L Normal 16 - 63 [facility] Comment on above: Performed By: #### 2 43373 #### [facility],[address] [place] [address] Anion gap [Moles/Vol] 10 mmol/L Normal 10 - 20 [facility] Comment on above: Performed By: #### 2 73770 #### [facility],[address] [place] [address] AST [Catalytic activity/Vol] 16 U/L Normal 15 - 37 [facility] Comment on above: Performed By: #### 2 25813 #### [facility],[address] [place] [address] B/C RATIO 23 ratio Normal 0 - 30 [facility] Comment on above: Performed By: #### 2 06195 #### [facility],[address] [place] [address] Bilirubin [Mass/Vol] 0.3 mg/dL Normal 0.2 - 1.0 [facility] Comment on above: Performed By: #### 2 89453 #### [facility],[address] [place] [address] Calcium [Mass/Vol] 8.5 mg/dL Normal 8.5 - 10.1 [facility] Comment on above: Performed By: #### 2 34599 #### [facility],[address] [place] [address] Chloride [Moles/Vol] 99 mmol/L Normal 98 - 107 [facility] Comment on above: Performed By: #### 2 20956 #### [facility],[address] [place] [address] CMP with eGFR Normal [facility] Comment on above: Result Comment: COMP REHENSIVE METABOLIC PANEL Performed By: #### 2 05167 #### [facility],[address] [place] [address] CO2 [Moles/Vol] 30.1 mmol/L Normal 21.0 - 32.0 [facility] Comment on above: Performed By: #### 2 42365 #### [address] [address] Creatinine [Mass/Vol] 0.83 mg/dL Normal 0.70 - 1.30 [facility] Comment on above: Performed By: #### 2 26280 #### [facility],[address] [place] [address] GFR/1.73 sq M.predicted among non-blacks MDRD (S/P/Bld) [Vol rate/Area] mL/min/{1.73_m2} Normal 60 - 999 [facility] Comment on above: Performed By: #### 2 85128 #### [address] [address] Result Comment: ACCO RDING TO THE NATIONAL KIDNEY DISEASE EDUCATION PROGRAM(NKDE), A NORMAL eGFR IS A VALUE GREATER THAN OR EQUAL TO 60 ML/MIN/1.73 SQ METERS. CHRONIC KIDNEY DISEASE: <60mL/MIN/1.73 SQ METERS KIDNEY FAILURE: <15mL/MIN/1.73 SQ METERS THIS TEST SHOULD ONLY BE USED FOR PATIENTS 18 YEARS OF AGE AND OLDER. Globulin (S) [Mass/Vol] 3.5 g/dL Normal 1.5 - 3.8 [facility] Comment on above: Performed By: #### 2 16310 #### [address] [address] Glucose [Mass/Vol] 242 mg/dL High 74 - 106 [facility] Comment on above: Performed By: #### 2 68136 #### [address] [address] Potassium [Moles/Vol] 3.9 mmol/L Normal 3.5 - 5.1 [facility] Comment on above: Performed By: #### 2 76441 #### [facility],[address] [place] [address] Protein [Mass/Vol] 6.5 g/dL Normal 6.4 - 8.2 [facility] Comment on above: Performed By: #### 2 86171 #### [facility],[address] [place] [address] Sodium [Moles/Vol] 135 mmol/L Low 136 - 145 [facility] Comment on above: Performed By: #### 2 93649 #### [facility],[address] [place] [address] Urea nitrogen [Mass/Vol] 19 mg/dL High 7 - 18 [facility] Comment on above: Performed By: #### 2 43974 #### [facility],[address] [place] [address] [address] CT BRAIN W/O CONTRAST 01-11 CT BRAIN W/O CONTRAST [address] ? [place] [address] ? Patient: GREGORY WARREN Phone#: : 1975 Age: 49 Gender: M Pt. Type: ER Account: [id number] Location: [facility] Ordering: JUAN LION Exam Date: 01/29/2025/12:45 Family Phys: Charge Code: 438324 Physician: Grundy Order #: [id number] Dose#: 52.30 mGy PROCEDURE: CT BRAIN WITHOUT CONTRAST COMPARISON: None. INDICATIONS: Altered mental status. TECHNIQUE: CT images were obtained without contrast material. All CT scans at this facility use dose modulation, iterative reconstruction, and/or weight based dosing when appropriate to reduce radiation dose to as low as reasonably achievable. IV CONTRAST: No IV contrast used,0ml TOTAL DOSE: 52.30 CTDIvol(mGy) FINDINGS: CEREBRUM: No edema, hemorrhage, mass, or inappropriate atrophy. CEREBELLUM: No edema, hemorrhage, mass, or inappropriate atrophy. BRAINSTEM: No edema, hemorrhage, mass, or inappropriate atrophy. CSF SPACES: Ventricles, cisterns, and sulci are appropriate for age. No hydrocephalus, subarachnoid hemorrhage, or mass. SKULL: No mass or other significant visible lesion. SINUSES: Leftward spurring of the nasal septum posteriorly. ORBITS: Limited views are unremarkable. OTHER: Posterior scalp soft tissue density extending to the skin surface, possibly representing scarring. CONCLUSION: 1. No appreciable acute intracranial abnormality. Note: An acute ischemic event or extension of a chronic ischemic process may not be initially evident on CT. Dictated by: Cady Muhammad MD on 01/29/2025 at 13:05 Approved by: Cady Muhammad MD on 01/29/2025 at 13:09 Normal [facility] CULTURE BLOOD [EMRE]on Microscopic examination of blood, culture CULTURE BLOOD [EMRE] _BLOOD CULTURE_ GO TO [facility] REPORTS AND ATTACHMENTS FOR SCANNED REPORT 02/04/25.1142.DNP.COMP LETE Normal [facility] Comment on above: Performed By: #### 2 66156 #### [place] [address] DRUG SCREEN URINE MEDICon AMPHETAMINES Negative [facility] Comment on above: Performed By: #### 2 67415 #### [facility],[address] [place] [address] B-DIAZEPINES Negative Normal [facility] Comment on above: Performed By: #### 2 35142 #### [facility],[address] [place] [address] BARBITURATES Negative Normal [facility] Comment on above: Performed By: #### 2 96650 #### [facility],[address] [place] [address] COCAINE Negative [facility] Comment on above: Performed By: #### 2 15737 #### [place] [address],[place] [address] DRUG SCREEN URINE MEDIC Normal [facility] Comment on above: Result Comment: DRUG SCREEN - URINE Performed By: #### 2 14360 #### [facility],[address] [place], [place] [id number] METHADONE Negative Normal [facility] Comment on above: Performed By: #### 2 81682 #### [facility],[address] [place] [address] OPIATES Negative Normal [facility] Comment on above: Performed By: #### 2 00913 #### [facility],[address] [place] [address] PCP Negative Normal [facility] Comment on above: Performed By: #### 2 35644 #### [facility],[address] [place] [address] THC Positive Normal [facility] Comment on above: Result Comment: JOLANTA ENTS RECEIVING PROTON PUMP INHIBITORS MAY DEMONSTRATE FALSE POSITIVE THC/CANNABINOID RESULTS. AN ALTERNATIVE CONFIRMATORY METHOD SHOULD BE CONSIDERED TO VERIFY POSITIVE RESULTS. Performed By: #### 2 82743 #### [facility],[address] [place] [address] LACTATEon 01-29-2025 Lactate [Moles/Vol] 1.4 mmol/L Normal 0.4 - 2.0 [facility] Comment on above: Performed By: #### 2 63396 #### [facility],[address] [place], [place] [id number] URINALYSISon 01-29-2025 Bilirubin Ql (U) Negative Normal NORMAL: NEGATIVE [facility] Comment on above: Performed By: #### 2 28074 #### [facility],[address] [place], [place] [id number] Clarity (U) clear Normal NORMAL: CLEAR [facility] Comment on above: Performed By: #### 2 39546 #### [facility],[address],[place] [address] Color (U) yellow Normal NORMAL: YELLOW [facility] Comment on above: Performed By: #### 2 59054 #### [facility],[address] [place] [address] Glucose Ql (U) 250 Abnormal NORMAL: NORMAL [facility] Comment on above: Performed By: #### 2 83204 #### [facility],[address] [place] [address] Hemoglobin Ql (U) Negative Normal NORMAL: NEGATIVE [facility] Comment on above: Performed By: #### 2 31245 #### [facility],[address] [place] [address] Ketone Negative Normal NORMAL: NEGATIVE [facility] Comment on above: Performed By: #### 2 42378 #### [facility],[address] [place] [address] Leukocytes Negative Normal NORMAL: NEGATIVE [facility] Comment on above: Performed By: #### 2 84438 #### [facility],[address] [place] [address] Nitrite Ql (U) Negative Normal NORMAL: NEGATIVE [facility] Comment on above: Performed By: #### 2 47441 #### [facility],[address] [place] [address] pH (U) 6.5 [pH] Normal NORMAL: 5.0-8.0 [facility] Comment on above: Performed By: #### 2 42237 #### [facility],[address] [place] [address] Protein Ql (U) Negative Normal NORMAL: NEGATIVE [facility] Comment on above: Performed By: #### 2 98855 #### [facility],[address] [place] [address] [address] [place] 1.020 Normal NORMAL: 1.010-1.03 0 [facility] Comment on above: Performed By: #### 2 15584 #### [facility],[address] [place] [address] Specimen Type R Normal [facility] Comment on above: Performed By: #### 2 90957 #### [facility],[address] [place] [address] Urinalysis dipstick W Reflex Microscopic panel (U) NOT INDICATED Normal [facility] Comment on above: Performed By: #### 2 76758 #### [place] [address] Urobilinog NORM Normal NORMAL: NORMAL [facility] Comment on above: Performed By: #### 2 11951 #### [facility],[address] [place] [address] Absolute lymphocyte countOrd ered By: Fernie Land on 01-16-2025 Lymphocytes Auto (Unsp spec) [#/Vol] 2.03 10*3/uL 0.83-4.51 [facility] Absolute neutrophil countOrd ered By: Fernie Land on 01-16-2025 Neutrophils (Bld) [#/Vol] 6.4 10*3/uL 2.0-7.7 [facility] Anion gap in Serum or Plasma Ordered By: Fernie Land on 01-16-2025 Anion gap [Moles/Vol] 10 mmol/L 5-15 [facility] Automated lymphocyte count a s percentage of total leukocytesOrdered By: Fernie Land on 01-16-2025 Lymphocytes/100 WBC Auto (Unsp spec) 21.8 % - [facility] BUN/creatinine ratioOrdered By: Frenie Land on 01-16-2025 Urea nitrogen/Creatinine [Mass ratio] 18.4 mg/mg - [facility] Basic Metabolic Profile (BMP )on 01-16-2025 BUN/CRE 18.4 RATIO Normal 03-01 [facility] Comment on above: Performed By: #### L 100.0100, L500.2500 #### [facility] [address] [place] [address], [address] Calcium [Mass/Vol] 9.2 mg/dL Normal 7.6-11.0 [facility] Comment on above: Performed By: #### L 100.0100, L500.2500 #### [facility] [address] [place], [address] Chloride [Moles/Vol] 102 mmol/L Normal 98-108 [facility] Comment on above: Performed By: #### L 100.0100, L500.2500 #### [facility] [address] [place], [address] CO2 [Moles/Vol] 25.4 mmol/L Normal 21.0-32.0 [facility] Comment on above: Performed By: #### L 100.0100, L500.2500 #### [facility] [address] [place], [address] Creatinine [Mass/Vol] 0.85 mg/dL Normal 0.70-1.20 [facility] Comment on above: Performed By: #### L 100.0100, L500.2500 #### [facility] [address] [place], [address] ECRCL 122.69 ml/min Normal 50-250 [facility] Comment on above: Performed By: #### L 100.0100, L500.2500 #### [facility] [address] [place], [address] GAP 10 Normal 5-15 [facility] Comment on above: Performed By: #### L 100.0100, L500.2500 #### [facility] [address] [place], [address] GFR/1.73 sq M.predicted among non-blacks MDRD (S/P/Bld) [Vol rate/Area] 108 mL/min/{1.73_m2} Normal >60 [facility] Comment on above: Result Comment: mL/m in/1.73m2 CKD-EPI Creatinine Equation (2020) Performed By: #### L 100.0100, L500.2500 #### [facility] [address] [place], [address] Glucose [Mass/Vol] 152 mg/dL High 70-99 [facility] Comment on above: Performed By: #### L 100.0100, L500.2500 #### [facility] [address] [place], [address] Potassium [Moles/Vol] 4.2 mmol/L Normal 3.3-5.1 [facility] Comment on above: Performed By: #### L 100.0100, L500.2500 #### [facility] [address] [place], [address] Sodium [Moles/Vol] 138 mmol/L Normal 133-145 [facility] Comment on above: Performed By: #### L 100.0100, L500.2500 #### [facility] [address] [place], [address] Urea nitrogen [Mass/Vol] 16 mg/dL Normal 4-19 [facility] Comment on above: Performed By: #### L 100.0100, L500.2500 #### [facility] [address] [place], [address] Basophil percentageOrdered B y: Fernie Land on 01-16-2025 Basophils/100 WBC (Bld) 0.5 % 0-1 [facility] Bilirubin Test strip Ql (U)O rdered By: Fernie Land on 01-16-2025 Bilirubin Ql (U) Negative Negative [facility] CBC W/Diff, Automatedon Absolute Lymph 2.03 X10 3/uL Normal 0.83-4.51 [facility] Comment on above: Performed By: #### L 100.0100, L500.2500 #### [facility] [address] [place], [address] Absolute Neut 6.4 X10 3/uL Normal 2.0-7.7 [facility] Comment on above: Performed By: #### L 100.0100, L500.2500 #### [facility] [address] [place], [address] Basophils/100 WBC (Bld) 0.5 % Normal 0-1 [facility] Comment on above: Performed By: #### L 100.0100, L500.2500 #### [facility] [address] [place], [address] Eosinophils/100 WBC (Bld) 1.3 % Normal 0-5 [facility] Comment on above: Performed By: #### L 100.0100, L500.2500 #### [facility] [address] [place], [address] Erythrocyte distribution width (RBC) [Ratio] 11.9 % Normal 11.6-14.6 [facility] Comment on above: Performed By: #### L 100.0100, L500.2500 #### [facility] [address] [place], [address] Hematocrit (Bld) [Volume fraction] 40.3 % Normal 40-54 [facility] Comment on above: Performed By: #### L 100.0100, L500.2500 #### [facility] [address] [place], [address] Hemoglobin (Bld) [Mass/Vol] 13.8 g/dL Normal 13.0-16. 5 [facility] Comment on above: Performed By: #### L 100.0100, L500.2500 #### [facility] [address] [place], [address] IG% 0.300 Normal 0.0-0.9 [facility] Comment on above: Result Comment: IG% - Immature Granulocytes (promyelocytes, myelocytes and metamyelocytes) > 1% indicates that a LEFT SHIFT is Present. Performed By: #### L 100.0100, L500.2500 #### [facility] [address] [place], [address] Lymphocytes/100 WBC (Bld) 21.8 % Normal 19-41 [facility] Comment on above: Performed By: #### L 100.0100, L500.2500 #### [facility] [address] [place], [address] MCH (RBC) [Entitic mass] 28.5 pg Normal 27.0-32.0 [facility] Comment on above: Performed By: #### L 100.0100, L500.2500 #### [facility] [address] [place], [address] MCHC (RBC) [Mass/Vol] 34.2 g/dL Normal 32-36 [facility] Comment on above: Performed By: #### L 100.0100, L500.2500 #### [facility] [address] [place], [address] MCV (RBC) [Entitic vol] 83.3 fL Normal 80-94 [facility] Comment on above: Performed By: #### L 100.0100, L500.2500 #### [facility] [address] [place], [address] Monocytes/100 WBC (Bld) 7.4 % Normal 0-10 [facility] Comment on above: Performed By: #### L 100.0100, L500.2500 #### [facility] [address] [place], [address] Neutrophils/100 WBC (Bld) 68.7 % Normal 47-70 [facility] Comment on above: Performed By: #### L 100.0100, L500.2500 #### [facility] [address] [place], [address] Nucleated RBC (Bld) [#/Vol] 0 10*3/uL Normal 0-5 [facility] Comment on above: Performed By: #### L 100.0100, L500.2500 #### [facility] [address] [place] [place], [address] Platelet mean volume (Bld) [Entitic vol] 9.4 fL Normal 6.2-12.0 [facility] Comment on above: Performed By: #### L 100.0100, L500.2500 #### [facility] [address] [place], [address] Platelets (Bld) [#/Vol] 237 10*3/uL Normal 150-450 [facility] Comment on above: Performed By: #### L 100.0100, L500.2500 #### [facility] [address] [place], [address] RBC (Bld) [#/Vol] 4.84 10*6/uL Normal 4.6-6.2 [facility] Comment on above: Performed By: #### L 100.0100, L500.2500 #### [facility] [address] [place], [address] RDW SD 36.1 fl Normal 35.1-43.9 [facility] Comment on above: Performed By: #### L 100.0100, L500.2500 #### [facility] [address] [place], [address] WBC (Bld) [#/Vol] 9.3 10*3/uL Normal 4.4-11.0 [facility] Comment on above: Performed By: #### L 100.0100, L500.2500 #### [facility] [address] [place], [address] Carbon dioxide, total [Moles /volume] in Central venous bloodOrdered By: Fernie Land on 01-16-2025 CO2 [Moles/Vol] 25.4 mmol/L 21.0-32.0 [facility] Chloride assayOrdered By: darrick Land on 01-16-2025 Chloride [Moles/Vol] 102 mmol/L 98-108 [facility] Eosinophil percentageOrdered By: Fernie Land on 01-16-2025 Eosinophils/100 WBC (Bld) 1.3 % 0-5 [facility] Erythrocyte distribution wid th ratioOrdered By: Fernie Land on 01-16-2025 Erythrocyte distribution width (RBC) [Ratio] 11.9 % 11.6-14.6 [facility] Erythrocyte distribution wid th standard deviationOrdered By: Fernie Land on 01-16-2025 Erythrocyte distribution width (RBC) [Ratio] 36.1 fl 35.1-43.9 [facility] Glomerular filtration rate ( GFR) estimation/1.73 sq m using serum, plasma, or whole bOrdered By: Fernie Land on 01-16-2025 GFR/1.73 sq M.predicted among non-blacks MDRD (S/P/Bld) [Vol rate/Area] 108 mL/min/{1.73_m2} >60 [facility] Comment on above: mL/min/1.73m2 CKD-EP I Creatinine Equation (2020) Hematocrit Auto (Bld) [Volum e fraction]Ordered By: Fernie Land on 01-16-2025 Hematocrit (Bld) [Volume fraction] 40.3 % 40-54 [facility] Hemoglobin measurementOrdere d By: Fernie Land on 01-16-2025 Hemoglobin (Bld) [Mass/Vol] 13.8 g/dL 13.0-16. 5 [facility] Immature granulocytes/100 WB C Auto (Bld)Ordered By: Fernie Land on 01-16-2025 Immature granulocytes/100 WBC (Bld) 0.300 % 0.0-0.9 [facility] Comment on above: IG% - Immature Granu locytes (promyelocytes, myelocytes and metamyelocytes) > 1% indicates that a LEFT SHIFT is Present. Ketones Test strip Ql (U)Ord ered By: Fernie Land on 01-16-2025 Ketones Ql (U) 5 mg/dl High Negative [facility] MCV (mean corpuscular volume ) determinationOrdered By: Fernie Land on 01-16-2025 MCV (RBC) [Entitic vol] 83.3 fL 80-94 [facility] Mean corpuscular hemoglobin (MCH) determinationOrdered By: Fernie Land on 01-16-2025 MCH (RBC) [Entitic mass] 28.5 pg 27.0-32.0 [facility] Mean corpuscular hemoglobin concentration (MCHC) determinationOrdered By: Fernie Land on 01-16-2025 MCHC (RBC) [Mass/Vol] 34.2 g/dL 32-36 [facility] Mean platelet volume determi nationOrdered By: Fernie Land on 01-16-2025 Platelet mean volume (Bld) [Entitic vol] 9.4 fL 6.2-12.0 [facility] Microscopic analysis of urin e for red blood cells (RBC)Ordered By: Fernie Land on 01-16-2025 Microscopic analysis of urine for red blood cells (RBC) 0 SEEN /hpf 0-5 [facility] Monocyte percentageOrdered B y: Fernie Land on 01-16-2025 Monocytes/100 WBC (Bld) 7.4 % 0-10 [facility] Mucus LM Ql (Urine sed)Order ed By: Fernie Land on 01-16-2025 Mucus Ql (Urine sed) 1+ /hpf [facility] Neutrophil percentageOrdered By: Fernie Land on 01-16-2025 Neutrophils/100 WBC (Bld) 68.7 % 47-70 [facility] Nucleated red blood cell per centageOrdered By: Fernie Land on 01-16-2025 Nucleated RBC/100 WBC (Bld) [Ratio] 0 % 0-5 [facility] Platelet countOrdered By: Simon Land on 01-16-2025 Platelets (Bld) [#/Vol] 237 10*3/uL 150-450 [facility] Potassium measurement (mass/ volume)Ordered By: Fernie Land on 01-16-2025 Potassium (Unsp spec) [Mass/Vol] 4.2 mmol/L 3.3-5.1 [facility] Protein Test strip Ql (U)Ord ered By: Fernie Land on 01-16-2025 Protein Ql (U) 30 mg/dl High Negative [facility] RBC Auto (Bld) [#/Vol]Ordere d By: Fernie Land on 01-16-2025 RBC (Bld) [#/Vol] 4.84 10*6/uL 4.6-6.2 [facility] Serum creatinine measurement (mass/volume)Ordered By: Fernie Land on 01-16-2025 Creatinine [Mass/Vol] 0.85 mg/dL 0.70-1.20 [facility] Serum glucose measurement (m ass/volume)Ordered By: Fernie Land on 01-16-2025 Glucose [Mass/Vol] 152 mg/dL High 70-99 [facility] Serum or plasma calcium stephane urement (mass/volume)Ordered By: Fernie Land on 01-16-2025 Calcium [Mass/Vol] 9.2 mg/dL 7.6-11.0 [facility] Serum or plasma urea nitroge n measurement (mass/volume)Ordered By: Fernie Land on 01-16-2025 Urea nitrogen [Mass/Vol] 16 mg/dL 4-19 [facility] Sodium levelOrdered By: Kody Land on 01-16-2025 Sodium [Moles/Vol] 138 mmol/L 133-145 [facility] Squamous epithelial cells de tection in urine sediment by light microscopyOrdered By: Fernie Land on 01-16-2025 Epithelial cells.squamous LM Ql (Urine sed) 0-5 SEEN /hpf 0-5 [facility] Urinalysis, Completeon 01-16 BACTERIA RARE Normal None Seen [facility] Comment on above: Order Comment: CLEAN CATCH Performed By: #### L 400.0001 ####[facility] [address] [place], [place], [id number] EPI,SQUAMOUS 0-5 SEEN Normal 0-5 [facility] Comment on above: Order Comment: CLEAN CATCH Performed By: #### L 400.0001 ####[facility] [address] [place], [address] Mucus Ql (Urine sed) 1+ /hpf Normal [facility] Comment on above: Order Comment: CLEAN CATCH Performed By: #### L 400.0001 ####[facility] [address] [place], [address] WBC 0-5 SEEN Normal 0-5 [facility] Comment on above: Order Comment: CLEAN CATCH Performed By: #### L 400.0001 ####[facility] [address] [facility] [address] BILIRUBIN URINE Negative Normal Negative [facility] Comment on above: Order Comment: CLEAN CATCH Performed By: #### L 400.0001 ####[facility] [address] [facility] [address] GLUCOSE, UR 50 mg/dl Abnormal Normal [facility] Comment on above: Order Comment: CLEAN CATCH Performed By: #### L 400.0001 ####[facility] [address] [place] [id number] KETONE UR 5 mg/dl Abnormal Negative [facility] Comment on above: Order Comment: CLEAN CATCH Performed By: #### L 400.0001 ####[facility] [address] [place], [address] LEUK ESTERASE Negative Normal Negative [facility] Comment on above: Order Comment: CLEAN CATCH Performed By: #### L 400.0001 ####[facility] [address] [facility] [address] OCCULT BLOOD-UR Negative Normal Negative [facility] Comment on above: Order Comment: CLEAN CATCH Performed By: #### L 400.0001 ####[facility] [address] [place], [address] pH UR 6.0 Normal 5.0 - 8.0 [facility] Comment on above: Order Comment: CLEAN CATCH Performed By: #### L 400.0001 ####[facility] [address] [place], [address] PROT DIPSTX 30 mg/dl Abnormal Negative [facility] Comment on above: Order Comment: CLEAN CATCH Performed By: #### L 400.0001 ####[facility] [address] [place], [address] SP.GR. DIPSTX 1.020 Normal 1.002-1.03 0 [facility] Comment on above: Order Comment: CLEAN CATCH Performed By: #### L 400.0001 ####[facility] [address] [place], [address] UROBILI 1 mg/dl Abnormal Normal [facility] Comment on above: Order Comment: CLEAN CATCH Performed By: #### L 400.0001 ####[facility] [address] [place], [address] RBC 0 SEEN Normal 0-5 [facility] Comment on above: Order Comment: CLEAN CATCH Performed By: #### L 400.0001 ####[facility] [address] [place], [address] Urine clarityOrdered By: Santos Land on 01-16-2025 Clarity (U) Clear Normal Clear [facility] Comment on above: Order Comment: CLEAN CATCH Performed By: #### L 400.0001 ####[facility] [address] [place], [address] Urine color determinationOrd ered By: Fernie Land on 01-16-2025 Color (U) Yellow Normal Yellow [facility] Comment on above: Order Comment: CLEAN CATCH Performed By: #### L 400.0001 ####[facility] [address] [place], [address] Urine glucose detectionOrder ed By: Fernie Land on 01-16-2025 Glucose Ql (U) 50 mg/dl High Normal [facility] Urine leukocyte esterase det ection by dipstickOrdered By: Fernie Land on 01-16-2025 Leukocyte esterase Test strip Ql (U) Negative Negative [facility] Urine nitrite test by dipsti ckOrdered By: Fernie Land on 01-16-2025 Nitrite Ql (U) Negative Normal Negative [facility] Comment on above: Order Comment: CLEAN CATCH Performed By: #### L 400.0001 ####[facility] [id number] [place], [address] Urine pHOrdered By: Fernie vicente on 01-16-2025 pH (U) 6.0 [pH] 5.0 - 8.0 [facility] Urine sediment bacteria coun t by microscopy (number/high power field)Ordered By: Fernie Land on 01-16-2025 Bacteria LM.HPF (Urine sed) [#/Area] RARE /hpf None Seen [facility] Urine specific gravity measu rementOrdered By: Fernie Land on 01-16-2025 Specific gravity (U) [Rel density] 1.020 1.002-1.03 0 [facility] Urine urobilinogen measureme ntOrdered By: Fernie Land on 01-16-2025 Urobilinogen Ql (U) 1 mg/dl High Normal [facility] White blood cell (WBC) count Ordered By: Fernie Land on 01-16-2025 WBC (Bld) [#/Vol] 9.3 10*3/uL 4.4-11.0 [facility] White blood cell countOrdere d By: Fernie Land on 01-16-2025 White blood cell count 0-5 SEEN /hpf 0-5 [facility] 12 Lead EKGon 01-15-2025 12 Lead EKG [facility] Cardiovascular Services [address] [place] [address] 12 Lead EKG 01/15/25 2349 MR#: [id number] Acct: [id number] Name: GREGORY WARREN Rep #: [id number] : 1975 49 From: Louise Reynoso MD Attending Dr: Status: DEP ER Ordering Dr: Fernie Land DO Date: 01/15/25 Location: ED Sex: M C Admitted: Test Reason : CONFUSION Blood Pressure : */* mmHG Vent. Rate : 84 BPM Atrial Rate : 84 BPM P-R Int : 168 ms QRS Dur : 136 ms QT Int : 398 ms P-R-T Axes : 25 -19 18 degrees QTcB Int : 470 ms Normal sinus rhythm Right bundle branch block Septal infarct , age undetermined Abnormal ECG Confirmed by ENRIQUE BRUCE, BRIGID ([id number]), editor greeting card MICHEL REYES ([id number]) on 01/18/2025 9:15:00 AM Referred By: HAMILTON Confirmed By: BRIGID REYNOSO MD 01/18/25 0915 Date Louise Reynoso MD CC: Dr. Fernie Land DO; No Primary Care Physician Signed Normal [facility] Brain/Head without Contrasto n 01-15-2025 Brain/Head without Contrast [facility] Imaging Services [address] [place] [address] [id number] Brain/Head without Contrast MR#: [id number] Acct: [id number] Name: GREGORY WARREN Rep #: [id number] : 1975 M 49 From: Kati farr MD PCP: Care Physician,No Primary Status: REG ER Study: Brain/Head without Contrast Date of Exam: 10/04 Exam# [id number] Ordering Dr: Fernie Land DO PROCEDURE: BRAIN/HEAD WITHOUT CONTRAST 01/16/2025 REASON FOR EXAM: CONFUSION TECHNIQUE: Procedure Code: CTBR Modality: CT Procedure: BRAIN/HEAD WITHOUT CONTRAST Coronal and Sagittal reconstruction series were provided. One or more dose reduction techniques were used (e.g., Automated exposure control, adjustment of the mA and/or kV according to patient size, use of iterative reconstruction technique. RADIATION DOSE SUMMARY: CTDlvol: 45 mGy DLP: 812 mGycm COMPARISON: 08-06-2024 FINDINGS: The visualized brain parenchyma shows normal appearance. No focal parenchymal abnormalities are demonstrated. Bah-white matter differentiation is maintained. Normal CT appearance of the posterior fossa structures. No intracerebral or extra-axial hemorrhage. No midline shifts or deformity. Normal size and configuration of the cerebral ventricles. No definite calvarial fractures. The osseous structures in the skull base are unremarkable. Paranasal sinuses are unremarkable. CT/Brain/Head without Contrast IMPRESSION: No intracerebral or extra-axial hemorrhage. No acute cerebrovascular insult. If clinical symptoms persist, further evaluation with MRI may be considered as clinically warranted. Unremarkable non-enhanced CT study for the brain. Reading Location: [place] [address] CC: Dr. Fernie Land DO; No Primary Care Physician Cap Parts Cutter: Signed Normal [facility] Chest 1 View (Portable)on Chest 1 View (Portable) [facility] Imaging Services [address] [place] [address] Chest 1 View (Portable) MR#: [id number] Acct: [id number] Name: GREGORY WARREN Rep #: [id number] : 1975 M 49 From: Rico Amezquita MD PCP: Care Physician,No Primary Status: REG ER Study: Chest 1 View (Portable) Date of Exam: 01/15/25 Exam# [id number] Ordering Dr: Fernie Land DO PROCEDURE: CHEST 1 VIEW (PORTABLE) 01/15/2025 REASON FOR EXAM: CONFUSION TECHNIQUE: Frontal view of the chest. COMPARISON: None available. FINDINGS: Hardware: None. Heart: The heart size is normal. Lungs: The lungs are clear. Bones: The bones are unremarkable. RAD/Chest 1 View (Portable) IMPRESSION: No Acute Findings. Reading Location: [facility] CC: Dr. Fernie Land DO; No Primary Care Physician [employer] Parts Cutter: Signed Normal [facility] Emergency Department Summary on 01-15-2025 Emergency Department Summary [facility] Medical Records Department [address] [place] [address] Emergency Department Summary 01/15/25 MR#: [id number] Acct: [id number] Name: GREGORY WARREN Rep #: [id number] : 1975 49 From: Fernie Land DO PCP: Care Physician,No Primary Status:REG ER Location: ED HPI History of Present Illness Chief Complaint: Confusion PFSH PFSH Medical History Drug use Home Medications ???Medication ???Instructions ???Recorded ???Last Taken ???Type metformin 1,000 mg tablet 1,000 mg PO BID 01/15/25 Unknown H istory Allergy/AdvReac Type Severity Reaction Status Date / Time No Known Allergies Allergy Verified 01/15/25 18:13 Family History no significant family his Social History household members: children housing: apartment Smoking Status: Former smoker substance use type: marijuana EXAM Physical Exam Const Vital Signs: 01/15/25 23:07 01/16/25 01:44 Temperature 98.3 F Temperature Source Oral Pulse Rate 102 H 81 Respiratory Rate 16 17 Blood Pressure 185/109 H 176/92 H Blood Pressure Mean 134 120 Pulse Ox 100 99 Oxygen Delivery Method Room Air Room Air [facility] MDM MDM Narrative Medical decision making narrative: HISTORY OF PRESENT ILLNESS: Chief complaint: Confusion 49-year-old male history of substance abuse, amphentermine abuse presents with concern for confusion. Notes This has been going on for 1 to 2 years. Denies any head trauma. Denies any fevers. Denies any vomiting. Denies any cough. Denies any abdominal pain. Denies any drug use recently. States he just does not feel right. Patient denies any suicidal homicidal ideation. Denies any auditory visual hallucinations. Denies chest pain, shortness of breath or headaches. Denies recent falls or trauma. REVIEW OF SYSTEMS: Pertinent positives: Confusion Pertinent negatives: As per HPI PHYSICAL EXAM: Nursing triage notes reviewed, Vital signs reviewed Constitutional: please see mdm HENT: MMM Eyes: Pupils equal round and reactive to light, Extraocular muscles intact Neck: No stridor, no JVD, full neck ROM Lungs: Clear to auscultation, No wheezing or rales. No increased work of breathing, no conversational dyspnea, no accessory muscle use, no nasal flaring. No respiratory distress noted Heart: Regular rate and rhythm, No murmurs, No rubs and No gallops, 2+ distal pulses (radial, femoral, posterior tibial) in all extremities Abdomen: Soft, there is no tenderness, rigidity, rebound or guarding, no obvious peritoneal signs, no palpable pulsatile abdominal masses, no auscultated abdominal bruit : No CVAT Extremities: No edema Neuro: No new focal neurological deficits, cranial nerves II through XII intact, 5/5 strength in all present extremities. Intact sensation to light touch in all present extremities, 2+ reflexes bilateral patella tendons. Skin: No rash or lesions noted Psych: Goal-directed thought process, does not appear to be responding to internal stimuli MEDICAL DECISION MAKING: Chief Complaint: please see HPI External records reviewed: Reviewed prior imaging studies Factors affecting care: As per [facility] Social determinants of health: Homeless History obtained from others: none Consults: none [facility] Narrative: The patient was initially HDS, afebrile, non-toxic appearing. Exam without obvious focal neurological deficits. I considered the following differential diagnosis: ICH, infectious or metabolic encephalopathy. I obtained a broad lab and imaging to further determine if the patient was suffering from a life- threatening etiology. ALL IMAGES (IF OBTAINED) HAVE BEEN PERSONALLY REVIEWED AND INTERPRETED BY MYSELF. CBC without leukocytosis, severe anemia, no thrombocytopenia. BMP without evidence of significant electrolyte abnormalities, no anion gap, no acute kidney injury. Urinalysis shows no evidence of urinary inflammation suggestive of UTI CT scan of the head negative for ICH I have personally reviewed the patient's chest x-ray. Chest x-ray is unremarkable for pulmonary edema, pneumothorax, pneumonia or focal cardiopulmonary abnormality. Upon re-evaluation patient was alert and oriented x 3. Patient notes he is homeless. States just wanting a place to stay. I have a strong suspicion for malingering. There is no indication for hospitalization at this time. Discussed elevated blood pressure in the emergency department and need for close outpatient follow-up. Gave outpatient resources including [employer] and local [facility]. Given the duration of his symptoms and lack of obvious findings to suggest metabolic, infectious or other encephalopathies patient will be discharged with close outpatient follow with his PCP for furthe (more content not included)... Normal [facility] Absolute neutrophil countOrd ered By: Samson Abraham on 08-06-2024 Neutrophils (Bld) [#/Vol] 3.5 10*3/uL 2.0-7.7 [facility] Anion gap in Serum or Plasma Ordered By: Samson Abraham on 08-06-2024 Anion gap [Moles/Vol] 13 mmol/L 5-15 [facility] BUN/creatinine ratioOrdered By: Samson Abraham on 08-06-2024 Urea nitrogen/Creatinine [Mass ratio] 15.3 mg/mg 10-20 [facility] Basophil percentageOrdered B y: Samson Abraham on 08-06-2024 Basophils/100 WBC (Bld) 0.5 % 0-1 [facility] Bilirubin, totalOrdered By: Samson Abraham on 08-06-2024 Bilirubin [Mass/Vol] 0.28 mg/dL 0.00-1.30 [facility] Brain/Head without Contrasto n 08-06-2024 Brain/Head without Contrast [facility] Imaging Services [address] [place] [address] Brain/Head without Contrast MR#: [id number] Acct: [id number] Name: GREGORY WARREN Rep #: [id number] : 1975 M 49 From: Karon Murillo nd, MD PCP: Care Physician,No Primary Status: REG ER Study: Brain/Head without Contrast Date of Exam: 07/12 12/04 Exam# [id number] Ordering Dr: Samson Abraham MD PROCEDURE: BRAIN/HEAD [...] Normal cerebral and cerebellar brain volume. The bah-white matter interfaces are maintained. No acute intracranial hemorrhage or herniation. CSF Spaces: No ventriculomegaly. Sinuses/Mastoids: The mastoid air cells and visualized paranasal sinuses are well-aerated. Bones: No acute calvarial fracture. No scalp hematoma. CT/Brain/Head without Contrast IMPRESSION: Unremarkable CT head. Reading [facility] CC: Dr. Samson Abraham MD; No Primary Care Physician [employer] Parts Cutter: Signed Normal [facility] CBC W/Diff, Automatedon 03-2 Absolute Lymph 1.87 X10 3/uL Normal 0.83-4.51 [facility] Comment on above: Performed By: #### L 500.4050, L100.0100 #### [facility] Laboratory [address] [place], [address] Absolute Neut 3.5 X10 3/uL Normal 2.0-7.7 [facility] Comment on above: Performed By: #### L 500.4050, L100.0100 #### [facility] [address] [place], [address] Basophils/100 WBC (Bld) 0.5 % Normal 0-1 [facility] Comment on above: Performed By: #### L 500.4050, L100.0100 #### [facility] [address] [place], [address] Eosinophils/100 WBC (Bld) 2.4 % Normal 0-5 [facility] Comment on above: Performed By: #### L 500.4050, L100.0100 #### [facility] [address] [place], [address] Erythrocyte distribution width (RBC) [Ratio] 11.9 % Normal 11.6-14.6 [facility] Comment on above: Performed By: #### L 500.4050, L100.0100 #### [facility] [address] [place], [address] Hematocrit (Bld) [Volume fraction] 43.1 % Normal 40-54 [facility] Comment on above: Performed By: #### L 500.4050, L100.0100 #### [facility] [address] [place], [address] Hemoglobin (Bld) [Mass/Vol] 14.7 g/dL Normal 13.0-16. 5 [facility] Comment on above: Performed By: #### L 500.4050, L100.0100 #### [facility] [address] [place], [address] IG% 0.200 Normal 0.0-0.9 [facility] Comment on above: Result Comment: IG% - Immature Granulocytes (promyelocytes, myelocytes and metamyelocytes) > 1% indicates that a LEFT SHIFT is Present. Performed By: #### L 500.4050, L100.0100 #### [facility] [address] [place], [address] Lymphocytes/100 WBC (Bld) 31.5 % Normal 19-41 [facility] Comment on above: Performed By: #### L 500.4050, L100.0100 #### [facility] [address] [place], [address] MCH (RBC) [Entitic mass] 28.7 pg Normal 27.0-32.0 [facility] Comment on above: Performed By: #### L 500.4050, L100.0100 #### [facility] [address] [place], [address] MCHC (RBC) [Mass/Vol] 34.1 g/dL Normal 32-36 [facility] Comment on above: Performed By: #### L 500.4050, L100.0100 #### [facility] [address] [place], [address] MCV (RBC) [Entitic vol] 84.2 fL Normal 80-94 [facility] Comment on above: Performed By: #### L 500.4050, L100.0100 #### [facility] [address] [place], [address] Monocytes/100 WBC (Bld) 6.2 % Normal 0-10 [facility] Comment on above: Performed By: #### L 500.4050, L100.0100 #### [facility] [address] [place], [address] Neutrophils/100 WBC (Bld) 59.2 % Normal 47-70 [facility] Comment on above: Performed By: #### L 500.4050, L100.0100 #### [facility] [address] [place], [address] Nucleated RBC (Bld) [#/Vol] 0 10*3/uL Normal 0-5 [facility] Comment on above: Performed By: #### L 500.4050, L100.0100 #### [facility] [address] [place], [address] Platelet mean volume (Bld) [Entitic vol] 9.8 fL Normal 6.2-12.0 [facility] Comment on above: Performed By: #### L 500.4050, L100.0100 #### [facility] [address] [place], [address] Platelets (Bld) [#/Vol] 219 10*3/uL Normal 150-450 [facility] Comment on above: Performed By: #### L 500.4050, L100.0100 #### [facility] [address] [place], [address] RBC (Bld) [#/Vol] 5.12 10*6/uL Normal 4.6-6.2 [facility] Comment on above: Performed By: #### L 500.4050, L100.0100 #### [facility] [address] [place], [address] RDW SD 36.0 fl Normal 35.1-43.9 [facility] Comment on above: Performed By: #### L 500.4050, L100.0100 #### [facility] [address] [place], [address] WBC (Bld) [#/Vol] 5.9 10*3/uL Normal 4.4-11.0 [facility] Comment on above: Performed By: #### L 500.4050, L100.0100 #### [facility] [address] [place], [address] Carbon dioxide, total [Moles /volume] in Central venous bloodOrdered By: Samson Abraham on 08-06-2024 CO2 [Moles/Vol] 24.8 mmol/L 21.0-32.0 [facility] Chloride assayOrdered By: Keven Abraham on 08-06-2024 Chloride [Moles/Vol] 100 mmol/L 98-108 [facility] Comprehensive Metabolic Prof ilon 08-06-2024 Albumin [Mass/Vol] 3.8 g/dL Normal 3.5-5.0 [facility] Comment on above: Performed By: #### L 500.4050, L100.0100 #### [facility] [address] [place], [address] Albumin/Globulin [Mass ratio] 1.4 {ratio} Normal 0.9-2.4 [facility] Comment on above: Performed By: #### L 500.4050, L100.0100 #### [facility] [address] [place], [address] ALK PHOS 73 U/L Normal 40-129 [facility] Comment on above: Performed By: #### L 500.4050, L100.0100 #### [facility] [address] [place], [address] ALT [Catalytic activity/Vol] 14 U/L Normal <=46 [facility] Comment on above: Performed By: #### L 500.4050, L100.0100 #### [facility] [address] [place], [address] AST [Catalytic activity/Vol] 17 U/L Normal <=37 [facility] Comment on above: Performed By: #### L 500.4050, L100.0100 #### [facility] [address] [place], [address] Bilirubin [Mass/Vol] 0.28 mg/dL Normal 0.00-1.30 [facility] Comment on above: Performed By: #### L 500.4050, L100.0100 #### [facility] [address] [place], [address] BUN/CRE 15.3 RATIO Normal 10-20 [facility] Comment on above: Performed By: #### L 500.4050, L100.0100 #### [facility] [address] [place], [address] Calcium [Mass/Vol] 8.9 mg/dL Normal 7.6-11.0 [facility] Comment on above: Performed By: #### L 500.4050, L100.0100 #### [facility] [address] [place], [address] Chloride [Moles/Vol] 100 mmol/L Normal 98-108 [facility] Comment on above: Performed By: #### L 500.4050, L100.0100 #### [facility] [address] [place], [address] CO2 [Moles/Vol] 24.8 mmol/L Normal 21.0-32.0 [facility] Comment on above: Performed By: #### L 500.4050, L100.0100 #### [facility] [address] [place], [address] Creatinine [Mass/Vol] 0.88 mg/dL Normal 0.70-1.20 [facility] Comment on above: Performed By: #### L 500.4050, L100.0100 #### [facility] [address] [place], [address] ECRCL 120.24 ml/min Normal 50-250 [facility] Comment on above: Performed By: #### L 500.4050, L100.0100 #### [facility] [address] [place], [address] GAP 13 Normal 5-15 [facility] Comment on above: Performed By: #### L 500.4050, L100.0100 #### [facility] [address] [place], [address] GFR/1.73 sq M.predicted among non-blacks MDRD (S/P/Bld) [Vol rate/Area] 107 mL/min/{1.73_m2} Normal >60 [facility] Comment on above: Result Comment: mL/m in/1.73m2 CKD-EPI Creatinine Equation (2020) Performed By: #### L 500.4050, L100.0100 #### [facility] [address] [place], [address] Globulin (S) [Mass/Vol] 2.7 g/dL Normal 2.2-4.2 [facility] Comment on above: Performed By: #### L 500.4050, L100.0100 #### [facility] [address] [place], [address] Glucose [Mass/Vol] 192 mg/dL High 70-99 [facility] Comment on above: Performed By: #### L 500.4050, L100.0100 #### [facility] [address] [place], [address] Potassium [Moles/Vol] 4.2 mmol/L Normal 3.3-5.1 [facility] Comment on above: Performed By: #### L 500.4050, L100.0100 #### [facility] [address] [place], [address] Sodium [Moles/Vol] 138 mmol/L Normal 133-145 [facility] Comment on above: Performed By: #### L 500.4050, L100.0100 #### [facility] [address] [place], [address] T PROT 6.6 g/dL Normal 5.9-8.4 [facility] Comment on above: Performed By: #### L 500.4050, L100.0100 #### [facility] [address] [place], [address] Urea nitrogen [Mass/Vol] 14 mg/dL Normal 4-19 [facility] Comment on above: Performed By: #### L 500.4050, L100.0100 #### [facility] [address] [place], [address] Emergency Department Summary on 08-06-2024 Emergency Department Summary [facility] Medical Records Department [address] [place] [address] Emergency Department Summary 08/06/24 MR#: [id number] Acct: [id number] Name: GREGORY WARREN Rep #: [id number] : 1975 49 From: Samson Abraham MD PCP: Care Physician,No Primary Status:DEP ER Location: ED HPI History of Present Illness Chief Complaint: Headache Informant: patient and spouse/S.O. Onset/Context/Timing Onset: Month(s) Context: Gradual Onset Timing: Intermittent Current Severity: Gone Maximum Severity: Mild Narrative Narrative: 49-year-old male history of methamphetamine abuse which he is trying to stop and diabetes. 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 Dorsi plantarflexion intact. Fingertip to nose [...] unkempt At (more content not included)... Normal [facility] Eosinophil percentageOrdered By: Samson Abraham on 08-06-2024 Eosinophils/100 WBC (Bld) 2.4 % 0-5 [facility] Erythrocyte distribution wid th ratioOrdered By: Samson Abraham on 08-06-2024 Erythrocyte distribution width (RBC) [Ratio] 11.9 % 11.6-14.6 [facility] Erythrocyte distribution wid th standard deviationOrdered By: Samson Abraham on 08-06-2024 Erythrocyte distribution width (RBC) [Entitic vol] 36.0 fL 35.1-43.9 [facility] Estimation of creatinine shameka aranceOrdered By: Samson Abraham on 08-06-2024 Estimated Creatinine Clearance Calc 120.24 ml/min 50-250 [facility] GFR/1.73 sq M.predicted elisabeth g non-blacks MDRD (S/P/Bld) [Vol rate/Area]Ordered By: Samson Abraham on 08-06-2024 Estimated GFR (MDRD) Non-Af Amer 107 >60 [facility] Comment on above: mL/min/1.73m2 CKD-EP I Creatinine Equation (2020) Hematocrit Auto (Bld) [Volum e fraction]Ordered By: Samson Abraham on 08-06-2024 Hematocrit (Bld) [Volume fraction] 43.1 % 40-54 [facility] Hemoglobin measurementOrdere d By: Samson Abraham on 08-06-2024 Hemoglobin (Bld) [Mass/Vol] 14.7 g/dL 13.0-16. 5 [facility] Immature granulocytes/100 WB C Auto (Bld)Ordered By: Samson Abraham on 08-06-2024 Immature granulocytes/100 WBC (Bld) 0.200 % 0.0-0.9 [facility] Comment on above: IG% - Immature Granu locytes (promyelocytes, myelocytes and metamyelocytes) > 1% indicates that a LEFT SHIFT is Present. Laboratory - Chemistry and C hemistry - challengeOrdered By: Samson Abraham on 08-06-2024 AST [Catalytic activity/Vol] 17 U/L <38 [facility] Lymphocytes Auto (Unsp spec) [#/Vol]Ordered By: Samson Abraham on 08-06-2024 Lymphocytes (Bld) [#/Vol] 1.87 10*3/uL 0.83-4.5 1 [facility] Lymphocytes/100 WBC Auto (Un sp spec)Ordered By: Samson Abraham on 08-06-2024 Lymphocytes/100 WBC (Bld) 31.5 % 19-41 [facility] MCV (mean corpuscular volume ) determinationOrdered By: Samson Abraham on 08-06-2024 MCV (RBC) [Entitic vol] 84.2 fL 80-94 [facility] Mean corpuscular hemoglobin (MCH) determinationOrdered By: Samson Abraham on 08-06-2024 MCH (RBC) [Entitic mass] 28.7 pg 27.0-32.0 [facility] Mean corpuscular hemoglobin concentration (MCHC) determinationOrdered By: Samson Abraham on 08-06-2024 MCHC (RBC) [Mass/Vol] 34.1 g/dL 32-36 [facility] Mean platelet volume determi nationOrdered By: Samson Abraham on 08-06-2024 Platelet mean volume (Bld) [Entitic vol] 9.8 fL 6.2-12.0 [facility] Monocyte percentageOrdered B y: Samson Abraham on 08-06-2024 Monocytes/100 WBC (Bld) 6.2 % 0-10 [facility] Neutrophil percentageOrdered By: Samson Abraham on 08-06-2024 Neutrophils/100 WBC (Bld) 59.2 % 47-70 [facility] Nucleated red blood cell per centageOrdered By: Samson Abraham on 08-06-2024 Nucleated RBC/100 WBC (Bld) [Ratio] 0 % 0-5 [facility] Platelet countOrdered By: Keven Abraham on 08-06-2024 Platelets (Bld) [#/Vol] 219 10*3/uL 150-450 [facility] Potassium (Unsp spec) [Mass/ Vol]Ordered By: Samson Abraham on 08-06-2024 Potassium [Moles/Vol] 4.2 mmol/L 3.3-5.1 [facility] RBC Auto (Bld) [#/Vol]Ordere d By: Samson Abraham on 08-06-2024 RBC (Bld) [#/Vol] 5.12 10*6/uL 4.6-6.2 [facility] Serum creatinine measurement (mass/volume)Ordered By: Samson Abraham on 08-06-2024 Creatinine [Mass/Vol] 0.88 mg/dL 0.70-1.20 [facility] Serum globulin measurementOr dered By: Samson Abraham on 08-06-2024 Globulin (S) [Mass/Vol] 2.7 g/dL 2.2-4.2 [facility] Serum glucose measurement (m ass/volume)Ordered By: Samson Abraham on 08-06-2024 Glucose [Mass/Vol] 192 mg/dL High 70-99 [facility] Serum or plasma alanine newman otransferase (ALT) measurementOrdered By: Samson Abraham on 08-06-2024 ALT [Catalytic activity/Vol] 14 U/L <47 [facility] Serum or plasma albumin stephane urement (mass/volume)Ordered By: Samson Abraham on 08-06-2024 Albumin [Mass/Vol] 3.8 g/dL 3.5-5.0 [facility] Serum or plasma albumin/glob ulin mass ratioOrdered By: Samson Abraham on 08-06-2024 Albumin/Globulin [Mass ratio] 1.4 {ratio} 0.9-2.4 [facility] Serum or plasma alkaline margarito sphatase measurementOrdered By: Samson Abraham on 08-06-2024 ALP [Catalytic activity/Vol] 73 U/L 40-129 [facility] Serum or plasma calcium stephane urement (mass/volume)Ordered By: Samson Abraham on 08-06-2024 Calcium [Mass/Vol] 8.9 mg/dL 7.6-11.0 [facility] Serum or plasma urea nitroge n measurement (mass/volume)Ordered By: Samson Abraham on 08-06-2024 Urea nitrogen [Mass/Vol] 14 mg/dL 4-19 [facility] Sodium levelOrdered By: Samson Abraham on 08-06-2024 Sodium [Moles/Vol] 138 mmol/L 133-145 [facility] Total proteinOrdered By: Alejandro Abraham on 08-06-2024 Protein [Mass/Vol] 6.6 g/dL 5.9-8.4 [facility] White blood cell (WBC) count Ordered By: Samson Abraham on 08-06-2024 WBC (Bld) [#/Vol] 5.9 10*3/uL 4.4-11.0 [facility] 12 Lead EKGon 05-11-2024 12 Lead EKG [facility] Cardiovascular Services [address] [place] [address] 12 Lead EKG 05/11/24 0626 MR#: [id number] Acct: [id number] Name: GREGORY WARREN Rep #: [id number] : 1975 48 From: Hayden Oliveros MD Attending Dr: Status: DEP ER Ordering [...] ECG Confirmed by ARGENTINA BRUCE, HAYDEN ([id number]), editor greeting card MICHEL REYES ([id number]) on 05/12/2024 7:55:29 AM Referred By: Confirmed By: HAYDEN OLIVEROS MD 05/12/24 0755 Date Hayden Oliveros MD CC: Dr. Dylon Hinkle, DO; No Primary Care Physician Signed Normal [facility] Absolute neutrophil countOrd ered By: Thuy Amador on 05-10-2024 Neutrophils (Bld) [#/Vol] 5.2 10*3/uL 2.0-7.7 [facility] Albumin to globulin ratioOrd ered By: Thuy Amador on 05-10-2024 Albumin/Globulin [Mass ratio] 0.9 {ratio} 0.9-2.4 [facility] Alcohol, Blood (Medical)-Ser umon 05-10-2024 SERUM ETOH < 3.0 Normal [facility] Comment on above: Result Comment: The serum:whole blood ethanol ratio is approximately 1.14 and varies slightly with hematocrit. Medical Alcohol reference interval and critical value in non-tolerant individuals; 50 - 100 Impairment 100 Intoxication 100 - 250 Severe Poisoning 250 - 400 Deep/possible fatal coma Performed By: #### L 100.0100, L500.4050, L501.9100, L505.5000 ####[facility] [address] [place], [address] Basophil percentageOrdered B y: Thuy Amador on 05-10-2024 Basophils/100 WBC (Bld) 0.6 % 0-1 [facility] Bilirubin, totalOrdered By: Thuy Amador on 05-10-2024 Bilirubin [Mass/Vol] 0.60 mg/dL 0.20-1.00 [facility] Comment on above: For patients on eltr ombopag therapy, use of Dimension [place] TBIL is not recommended. Blood urea nitrogen (BUN)/cr eatinine ratioOrdered By: Thuy Amador on 05-10-2024 Urea nitrogen/Creatinine [Mass ratio] 16.7 mg/mg 10-20 [facility] CBC W/Diff, Automatedon 12-2 Absolute Lymph 2.54 X10 3/uL Normal 0.83-4.51 [facility] Comment on above: Performed By: #### L 100.0100, L500.4050, L501.9100, L505.5000 #### [facility] Laboratory [address] [place], [address] Absolute Neut 5.2 X10 3/uL Normal 2.0-7.7 [facility] Comment on above: Performed By: #### L 100.0100, L500.4050, L501.9100, L505.5000 #### [facility] Laboratory [address] [place], [address] Basophils/100 WBC (Bld) 0.6 % Normal 0-1 [facility] Comment on above: Performed By: #### L 100.0100, L500.4050, L501.9100, L505.5000 #### [facility] Laboratory [address] [place], [address] Eosinophils/100 WBC (Bld) 1.3 % Normal 0-5 [facility] Comment on above: Performed By: #### L 100.0100, L500.4050, L501.9100, L505.5000 #### [facility] Laboratory [address] [place], [address] Erythrocyte distribution width (RBC) [Ratio] 11.7 % Normal 11.6-14.6 [facility] Comment on above: Performed By: #### L 100.0100, L500.4050, L501.9100, L505.5000 #### [facility] [address] [place], [address] Hematocrit (Bld) [Volume fraction] 42.6 % Normal 40-54 [facility] Comment on above: Performed By: #### L 100.0100, L500.4050, L501.9100, L505.5000 #### [facility] Laboratory [address] [place], [address] Hemoglobin (Bld) [Mass/Vol] 14.9 g/dL Normal 13.0-16. 5 [facility] Comment on above: Performed By: #### L 100.0100, L500.4050, L501.9100, L505.5000 #### [facility] [address] [place], [address] IG% 0.200 Normal 0.0-0.9 [facility] Comment on above: Result Comment: IG% - Immature Granulocytes (promyelocytes, myelocytes and metamyelocytes) > 1% indicates that a LEFT SHIFT is Present. Performed By: #### L 100.0100, L500.4050, L501.9100, L505.5000 #### [facility] Laboratory [address] [place], [address] Lymphocytes/100 WBC (Bld) 29.9 % Normal 19-41 [facility] Comment on above: Performed By: #### L 100.0100, L500.4050, L501.9100, L505.5000 #### [facility] [address] [place], [address] MCH (RBC) [Entitic mass] 28.5 pg Normal 27.0-32.0 [facility] Comment on above: Performed By: #### L 100.0100, L500.4050, L501.9100, L505.5000 #### [facility] [address] [place], [address] MCHC (RBC) [Mass/Vol] 35.0 g/dL Normal 32-36 [facility] Comment on above: Performed By: #### L 100.0100, L500.4050, L501.9100, L505.5000 #### [facility] [address] [place], [address] MCV (RBC) [Entitic vol] 81.5 fL Normal 80-94 [facility] Comment on above: Performed By: #### L 100.0100, L500.4050, L501.9100, L505.5000 #### [facility] [address] [place], [address] Monocytes/100 WBC (Bld) 7.1 % Normal 0-10 [facility] Comment on above: Performed By: #### L 100.0100, L500.4050, L501.9100, L505.5000 #### [facility] [address] [place], [address] Neutrophils/100 WBC (Bld) 60.9 % Normal 47-70 [facility] Comment on above: Performed By: #### L 100.0100, L500.4050, L501.9100, L505.5000 #### [facility] [address] [place], [address] Nucleated RBC (Bld) [#/Vol] 0 10*3/uL Normal 0-5 [facility] Comment on above: Performed By: #### L 100.0100, L500.4050, L501.9100, L505.5000 #### [facility] Laboratory [address] [place], [address] Platelet mean volume (Bld) [Entitic vol] 9.7 fL Normal 6.2-12.0 [facility] Comment on above: Performed By: #### L 100.0100, L500.4050, L501.9100, L505.5000 #### [facility] Laboratory [address] [place], [address] Platelets (Bld) [#/Vol] 225 10*3/uL Normal 150-450 [facility] Comment on above: Performed By: #### L 100.0100, L500.4050, L501.9100, L505.5000 #### [facility] [address] [place], [address] RBC (Bld) [#/Vol] 5.23 10*6/uL Normal 4.6-6.2 [facility] Comment on above: Performed By: #### L 100.0100, L500.4050, L501.9100, L505.5000 #### [facility] [address] [place], [address] RDW SD 34.4 fl Low 35.1-43.9 [facility] Comment on above: Performed By: #### L 100.0100, L500.4050, L501.9100, L505.5000 #### [facility] [address] [place], [address] WBC (Bld) [#/Vol] 8.5 10*3/uL Normal 4.4-11.0 [facility] Comment on above: Performed By: #### L 100.0100, L500.4050, L501.9100, L505.5000 #### [facility] [address] [place], [address] Carbon dioxide measurementOr dered By: Thuy Amador on 05-10-2024 CO2 [Moles/Vol] 26.0 mmol/L 21.0-32.0 [facility] Chloride measurementOrdered By: Thuy Amador on 05-10-2024 Chloride [Moles/Vol] 102 mmol/L 98-107 [facility] Comprehensive Metabolic Prof ilon 05-10-2024 Albumin [Mass/Vol] 3.5 g/dL Normal 3.2-5.0 [facility] Comment on above: Performed By: #### L 100.0100, L500.4050, L501.9100, L505.5000 ####[facility] [address] [place], [address] Albumin/Globulin [Mass ratio] 0.9 {ratio} Normal 0.9-2.4 [facility] Comment on above: Performed By: #### L 100.0100, L500.4050, L501.9100, L505.5000 ####[facility] [address] [place], [address] ALK P 78 U/L Normal 45-117 [facility] Comment on above: Performed By: #### L 100.0100, L500.4050, L501.9100, L505.5000 ####[facility] [address] [place], [address] ALT [Catalytic activity/Vol] 22 U/L Normal 16-61 [facility] Comment on above: Performed By: #### L 100.0100, L500.4050, L501.9100, L505.5000 ####[facility] [address] [place], [address] AST [Catalytic activity/Vol] 12 U/L Low 15-37 [facility] Comment on above: Performed By: #### L 100.0100, L500.4050, L501.9100, L505.5000 ####[facility] [address] [place], [address] Bilirubin [Mass/Vol] 0.60 mg/dL Normal 0.20-1.00 [facility] Comment on above: Result Comment: For patients on eltrombopag therapy, use of Dimension [place] TBIL is not recommended. Performed By: #### L 100.0100, L500.4050, L501.9100, L505.5000 ####[facility] [address] [place], [address] BUN/CRE 16.7 RATIO Normal 10-20 [facility] Comment on above: Performed By: #### L 100.0100, L500.4050, L501.9100, L505.5000 ####[facility] [address] [place], [address] CA,Total 9.1 mg/dL Normal 8.5-10.1 [facility] Comment on above: Performed By: #### L 100.0100, L500.4050, L501.9100, L505.5000 ####[facility] [address] [place], [address] Chloride [Moles/Vol] 102 mmol/L Normal 98-107 [facility] Comment on above: Performed By: #### L 100.0100, L500.4050, L501.9100, L505.5000 ####[facility] [address] [place], [address] CO2 [Moles/Vol] 26.0 mmol/L Normal 21.0-32.0 [facility] Comment on above: Performed By: #### L 100.0100, L500.4050, L501.9100, L505.5000 ####[facility] [address] [place], [address] Creatinine [Mass/Vol] 0.90 mg/dL Normal 0.70-1.30 [facility] Comment on above: Result Comment: The validity of the calculated GFR GFRAA in patients over 70 years has not been determined. Clinical correlation is essential. Performed By: #### L 100.0100, L500.4050, L501.9100, L505.5000 ####[facility] [address] [place], [address] ECRCL 119.06 ml/min Normal [facility] Comment on above: Performed By: #### L 100.0100, L500.4050, L501.9100, L505.5000 ####[facility] [address] [place], [address] EST GFR - AA 117 mL/min Normal >60 [facility] Comment on above: Result Comment: Afri can [place] GFR Calc Performed By: #### L 100.0100, L500.4050, L501.9100, L505.5000 ####[facility] [address] [place], [address] GAP 8 Normal 5-15 [facility] Comment on above: Performed By: #### L 100.0100, L500.4050, L501.9100, L505.5000 ####[facility] [address] [place], [address] GFR/1.73 sq M.predicted among non-blacks MDRD (S/P/Bld) [Vol rate/Area] 96 mL/min/{1.73_m2} Normal >60 [facility] Comment on above: Result Comment: Non- GFR Calc Performed By: #### L 100.0100, L500.4050, L501.9100, L505.5000 ####[facility] [address] [place], [address] Globulin (S) [Mass/Vol] 3.7 g/dL Normal 2.2-4.2 [facility] Comment on above: Performed By: #### L 100.0100, L500.4050, L501.9100, L505.5000 ####[facility] [address] [place], [address] Glucose [Mass/Vol] 266 mg/dL High 74-106 [facility] Comment on above: Result Comment: Gluc ose result greater than or equal to 200 mg/dL suggests DIABETES MELLITUS per A.D.A. criteria. Performed By: #### L 100.0100, L500.4050, L501.9100, L505.5000 ####[facility] [address] [place], [address] Potassium [Moles/Vol] 3.7 mmol/L Normal 3.5-5.1 [facility] Comment on above: Performed By: #### L 100.0100, L500.4050, L501.9100, L505.5000 ####[facility] [address] [place], [address] Sodium [Moles/Vol] 136 mmol/L Normal 136-145 [facility] Comment on above: Performed By: #### L 100.0100, L500.4050, L501.9100, L505.5000 ####[facility] [address] [place], [address] T PROT 7.2 g/dL Normal 6.4-8.2 [facility] Comment on above: Performed By: #### L 100.0100, L500.4050, L501.9100, L505.5000 ####[facility] [address] [place], [address] Urea nitrogen [Mass/Vol] 15 mg/dL Normal 7-18 [facility] Comment on above: Performed By: #### L 100.0100, L500.4050, L501.9100, L505.5000 ####[facility] [address] [place], [address] Emergency Department Summary on 05-10-2024 Emergency Department Summary [facility] Medical Records Department [address] [place] [address] Emergency Department Summary 05/10/24 MR#: [id number] Acct: [id number] Name: GREGORY WARREN Rep #: [id number] : 1975 48 From: Thyu HOPSON PCP: Care Physician,No Primary Status:REG ER [...] term detox stay at a place in [place] called [facility] but the facility there told them he needs an acute detox in a hospital setting before going there [facility] Medical History Drug use Home Medications ???Medication [...] a longer term addiction treatment facility in [place]. Patient's blood work and urine drug screen [...] % (Auto) 60.9 Lymph % (Auto) 29.9 Owen % (Auto) 7.1 Eos % (Auto) 1.3 [...] MDM Lab (more content not included)... Normal [facility] Eosinophil percentageOrdered By: Thuy Amador on 05-10-2024 Eosinophils/100 WBC (Bld) 1.3 % 0-5 [facility] Erythrocyte distribution wid th ratioOrdered By: Thuy Amador on 05-10-2024 Erythrocyte distribution width (RBC) [Ratio] 11.7 % 11.6-14.6 [facility] Erythrocyte distribution wid th standard deviationOrdered By: Thuy Amador on 05-10-2024 Erythrocyte distribution width (RBC) [Entitic vol] 34.4 fL Low 35.1-43.9 [facility] Estimated glomerular filtrat ion rate (GFR) AmericanOrdered By: Thuy Amador on 05-10-2024 Estimated GFR (MDRD) Amer 117 mL/min >60 [facility] Comment on above: GFR Calc Estimation of creatinine shameka aranceOrdered By: Thuy Amador on 05-10-2024 Estimated Creatinine Clearance Calc 119.06 ml/min [facility] Glomerular filtration rate ( GFR) estimationOrdered By: Thuy Amador on 05-10-2024 Estimated GFR (MDRD) Non-Af Amer 96 mL/min >60 [facility] Comment on above: Non- GFR Calc Glucose measurementOrdered B y: Thuy Amador on 05-10-2024 Glucose [Mass/Vol] 266 mg/dL High 74-106 [facility] Comment on above: Glucose result great er than or equal to 200 mg/dLsuggests DIABETES MELLITUS per A.D.A. criteria. Hematocrit Auto (Bld) [Volum e fraction]Ordered By: Thuy Amador on 05-10-2024 Hematocrit (Bld) [Volume fraction] 42.6 % 40-54 [facility] Hemoglobin measurementOrdere d By: Thuy Amador on 05-10-2024 Hemoglobin (Bld) [Mass/Vol] 14.9 g/dL 13.0-16. 5 [facility] Immature granulocytes/100 WB C Auto (Bld)Ordered By: Thuy Amador on 05-10-2024 Immature granulocytes/100 WBC (Bld) 0.200 % 0.0-0.9 [facility] Comment on above: IG% - Immature Granu locytes (promyelocytes, myelocytes and metamyelocytes) > 1% indicates that a LEFT SHIFT is Present. Laboratory - Chemistry and C hemistry - challengeOrdered By: Thuy Amador on 05-10-2024 AST [Catalytic activity/Vol] 12 U/L Low 15-37 [facility] Lymphocytes Auto (Unsp spec) [#/Vol]Ordered By: Thuy Amador on 05-10-2024 Lymphocytes (Bld) [#/Vol] 2.54 10*3/uL 0.83-4.5 1 [facility] Lymphocytes/100 WBC Auto (Un sp spec)Ordered By: Thuyabida Amador on 05-10-2024 Lymphocytes/100 WBC (Bld) 29.9 % 19-41 [facility] MCV (mean corpuscular volume ) determinationOrdered By: Thuy Amador on 05-10-2024 MCV (RBC) [Entitic vol] 81.5 fL 80-94 [facility] Mean corpuscular hemoglobin (MCH) determinationOrdered By: Thuy Amador on 05-10-2024 MCH (RBC) [Entitic mass] 28.5 pg 27.0-32.0 [facility] Mean corpuscular hemoglobin concentration (MCHC) determinationOrdered By: Thuy Amador on 05-10-2024 MCHC (RBC) [Mass/Vol] 35.0 g/dL 32-36 [facility] Mean platelet volume determi nationOrdered By: Thuy Amador on 05-10-2024 Platelet mean volume (Bld) [Entitic vol] 9.7 fL 6.2-12.0 [facility] Methadone, urineOrdered By: Thuy Amador on 05-10-2024 Urine Methadone Screen Negative < 300 ng/mL [facility] Monocyte percentageOrdered B y: Thuy Amador on 05-10-2024 Monocytes/100 WBC (Bld) 7.1 % 0-10 [facility] Neutrophil percentageOrdered By: Thuy Amador on 05-10-2024 Neutrophils/100 WBC (Bld) 60.9 % 47-70 [facility] No Panel InformationOrdered By: Thuy Amador on 05-10-2024 Urine Drug Screen Comment [facility] Comment on above: CONFIRMATORY TESTING FOR ALL [...] RBC/100 WBC (Bld) [Ratio] 0 % 0-5 [facility] Platelet countOrdered By: Sandy Amador on 05-10-2024 Platelets (Bld) [#/Vol] 225 10*3/uL 150-450 [facility] Potassium measurementOrdered By: Thuy Amador on 05-10-2024 Potassium [Moles/Vol] 3.7 mmol/L 3.5-5.1 [facility] Quantitative urine opiates m easurementOrdered By: Thuy Amador on 05-10-2024 Opiates Ql (U) Negative < 300 ng/mL [facility] RBC Auto (Bld) [#/Vol]Ordere d By: Thuy Amador on 05-10-2024 RBC (Bld) [#/Vol] 5.23 10*6/uL 4.6-6.2 [facility] Serum anion gap measurementO rdered By: Thuy Amador on 05-10-2024 Anion gap [Moles/Vol] 8 mmol/L 5-15 [facility] Serum ethanol measurementOrd ered By: Thuy Amador on 05-10-2024 Ethyl Alcohol Level < 3.0 mg/dL [facility] Comment on above: The serum:whole bloo d ethanol ratio is approximately 1.14and varies slightly with hematocrit. Medical Alcohol reference interval and critical value innon-tolerant individuals; 50 - 100 Impairment 100 Intoxication 100 - 250 Severe Poisoning 250 - 400 Deep/possible fatal coma Serum globulin measurementOr dered By: Thuy Amador on 05-10-2024 Globulin (S) [Mass/Vol] 3.7 g/dL 2.2-4.2 [facility] Serum or plasma alanine newman otransferase (ALT) measurementOrdered By: Thuy Amador on 05-10-2024 ALT [Catalytic activity/Vol] 22 U/L 16-61 [facility] Serum or plasma albumin stephane urement (mass/volume)Ordered By: Thuy Amador on 05-10-2024 Albumin [Mass/Vol] 3.5 g/dL 3.2-5.0 [facility] Serum or plasma alkaline margarito sphatase measurementOrdered By: Thuyabida Amador on 05-10-2024 ALP [Catalytic activity/Vol] 78 U/L 45-117 [facility] Serum or plasma calcium stephane urement (mass/volume)Ordered By: Thuy Amador on 05-10-2024 Calcium [Mass/Vol] 9.1 mg/dL 8.5-10.1 [facility] Serum or plasma creatinine m easurement (mass/volume)Ordered By: Thuy Amador on 05-10-2024 Creatinine [Mass/Vol] 0.90 mg/dL 0.70-1.30 [facility] Comment on above: The validity of the calculated GFR & GFRAA in patients over 70 years has not been determined. Clinical correlation is essential. Serum or plasma urea nitroge n measurement (mass/volume)Ordered By: Thuy Amador on 05-10-2024 Urea nitrogen [Mass/Vol] 15 mg/dL 7-18 [facility] Sodium levelOrdered By: Thuy Amador on 05-10-2024 Sodium [Moles/Vol] 136 mmol/L 136-145 [facility] Total proteinOrdered By: Nichole Amador on 05-10-2024 Protein [Mass/Vol] 7.2 g/dL 6.4-8.2 [facility] Urine Drug Screen (VISTA)on 05-10-2024 AMPHETAMINES Negative Normal <1000 ng/mL [facility] Comment on above: Performed By: #### L 100.0100, L500.4050, L501.9100, L505.5000 ####[facility] [address] [place], [address] BARBITIURATES Negative Normal < 200 ng/mL [facility] Comment on above: Performed By: #### L 100.0100, L500.4050, L501.9100, L505.5000 ####[facility] [address] [place], [address] BENZODIAZIPINE Negative Normal < 200 ng/mL [facility] Comment on above: Performed By: #### L 100.0100, L500.4050, L501.9100, L505.5000 ####[facility] [address] [place], [address] COCAINE Negative Normal < 300 ng/mL [facility] Comment on above: Performed By: #### L 100.0100, L500.4050, L501.9100, L505.5000 ####[facility] [address] [place], [place], [phone] ECSTACY Negative Normal < 500 ng/mL [facility] Comment on above: Performed By: #### L 100.0100, L500.4050, L501.9100, L505.5000 ####[facility] [address] [place], [place], [phone] METHADONE Negative Normal < 300 ng/mL [facility] Comment on above: Performed By: #### L 100.0100, L500.4050, L501.9100, L505.5000 ####[facility] [address] [place], [place], [phone] OPIATES Negative Normal < 300 ng/mL [facility] Comment on above: Performed By: #### L 100.0100, L500.4050, L501.9100, L505.5000 ####[facility] [address] [place], [place], [phone] PCP Negative Normal < 25 ng/mL [facility] Comment on above: Performed By: #### L 100.0100, L500.4050, L501.9100, L505.5000 ####[facility] [address] [place] [address] THC Positive Abnormal < 50 ng/mL [facility] Comment on above: Performed By: #### L 100.0100, L500.4050, L501.9100, L505.5000 ####[facility] [address] [place], [address] VISTA UDS PH 5 Normal [facility] Comment on above: Performed By: #### L 100.0100, L500.4050, L501.9100, L505.5000 ####[facility] [address] [place], [address] Urine amphetamine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 02/02/2025 09:25 AM [facility] [id number] Note* Exam Date Time Procedure Performing Provider Status 02/01/25 6:03 PM MRI Brain w/ Contrast ARNDY HUNTER MD; Auth (Verified) [id number] ORIGINAL EXAMINATION: MRI OF THE BRAIN WITH CONTRAST TECHNIQUE: Multiplanar multisequence MRI of the head/brain was performed with the administration of intravenous contrast. COMPARISON: MRI January 30, 2025. HISTORY: ORDERING SYSTEM PROVIDED HISTORY: Reason for Exam: AMS FINDINGS: Nonspecific generalized smooth thin pachymeningeal enhancement. Otherwise, no abnormal enhancement is seen. The configuration of the ventricular system is normal. IMPRESSION: Nonspecific generalized smooth thin pachymeningeal enhancement; correlate with CSF sampling given reported history. Otherwise, no abnormal enhancement is seen. I have personally reviewed the images of this examination and agree with the resident's findings and interpretation. Interpreted by: Randy Hunter Preliminary Report By: Ramos Neal Electronically signed By Randy Hunter Dictated Date: 02/01/2025 7:17:25 PM Prelim Date: 02/01/2025 7:24:00 PM Sign Date: 02/01/2025 7:31:40 PM Ordering Provider: ALEXANDREA PATEL [facility] [id number] Note Date of Service 02/01/25 ROUTINE ELECTROENCEPHALOGRAM Interpreting Physician: RUBINA BLOOM MD Referring Physician: Duane Bagley MD Date of EE02/01/25 Duration: 30 MINS Procedure Location: In/Outpatient [[ Clinical History: PER DR. AMANDA BRUCE Date of Service 01/31/2025 Reason for Consultation AMS Referring Physician Hospitalist team History of Present Illness 49-year-old M with PMH HTN, HLD, DM, morbid obesity, history of methamphetamine use, h/O ETOH abuseadmitted with AMS. Per patient he has been having confusion for the last 1-2 month or so. Per documentation patient has been getting very short tempered with his family. No witnessed or documented seizures. At present patient denies any new onset focal neurological deficits, sensory loss, speech disturbances, visual disturbances, MONTES DE OCA or dizziness. Patient does go on tangent and get confused while talking about his job, but is oriented to self, place and year. MRI brain done during this admissionreported nothing acute. BP 174/95 mmHg. Labs WBC 7.3, Hb 14, platelet 251, glucose 201, sodium 140,potassium 4.3, creatinine 0.72, GFR 113, AST/ALT 14/14, HbA1c high at 8.6, TSH normal, ammonia normal, vitamin B12 355, patient is not on aspirin at baseline. ]] Technical Summary: 21 channels of EEG were recorded in a digital format on a patient who was reported to be awake and asleep during the recording. The patient was not sleep deprived prior to the EEG. The PDR consisted of well-developed, well-regulated 11 Hz alpha activity, maximal over the posterior head regions and reactive to eye opening and closure. Photic stimulation was performed, acceptable photic driving seen. Hyperventilation was notperformed. During the recording stage II sleep was seen. The EKG lead revealed no rhythm abnormalities. EEG Interpretation: This EEG was within normal limits for a patient of this age in the awake and Sleep Stage II. No focal lateralizing, or epileptiform features were seen during the recording. Clinical correlation is recommended. . RUBINA BLOOM MD (ABCN, BOARD CERTIFIED by the STATELESS BOARD OF CLINICAL NEUROPHYSIOLOGY) Digitally Signed by RUBINA BLOOM MD on 02/01/2025 01:31 PM [facility] [id number] Neurology Progress note Date of Service February 01, 2025 Chief Complaint Confusion Subjective Patient seen and examined today. Alert to self, place. Not oriented to month. States it is February.He continues with this confusion. He states that someone just left his room and had no idea what they talked about. Seems he is having some trouble with short-term memory. Otherwise, no acute events overnight. No seizure activity. Objective Vitals and Measurements T: 37.0 C (Oral) TMIN: 36.7 C (Oral) TMAX: 37.0 C (Oral) HR: 75 RR: 16 BP: 146/87 SpO2: 97% Intake and Output Last 24 hours Intake Medication 433.00 Oral Intake 420.00 Output Stool Count 0.00 Total Summary Total Intake 853.00 Total Output 0.00 Fluid Balance 853.00 Physical Exam General: no acute distress Neurologic Exam Mental Status: Orientation: oriented to place, name. not month Language: normal fluency, normal comprehension Speech: non-dysarthric Cranial Nerves: Pupils: equal Visual Jean: full to confrontation bilaterally CN III, IV, : EOMI. No nystagmus CN VII: face symmetric at rest. Facial muscle strength intact CN VIII: intact grossly Sensation: Light touch: intact in all 4 extremities Motor: Involuntary movements: none Strength: full and equal in all 4 extremities Coordination: No gross ataxia Weight Dosing Weight: 111 kg (01/30/25) Medications Medications (20) Active Scheduled: (11) amLODIPine 10 mg tablet 10 mg 1 tab(s), Oral, qDay ampicillin-sulbactam 3 gram(s) 8 mL, IV Piggyback, q6hr atorvastatin 40 mg tablet 40 mg 1 tab(s), Oral, qDay cholecalciferol 25 mcg tablet (Vit D3 1000 units) 25 mcg 1 tab(s), Oral, Daily cyanocobalamin 1000 mcg/mL Solution (1mL) 1,000 mcg 1 mL, Oral, qDay enoxaparin 40 mg/ 0.4mL syringe 40 mg 0.4 mL, Subcutaneous, qDay insulin lispro 100 units/mL Soln (3 mL) 0-10 unit(s), Subcutaneous, achs magnesium oxide 400 mg Tablet 400 mg 1 tab(s), Oral, qDay multivitamin tablet 1 tab(s), Oral, Daily thiamine (w/calcium) 100 mg tablet 100 mg 1 tab(s), Oral, qDay vitamins A/D ointment 1 robert, Topical, BID Continuous: (0) PRN: (9) acetaminophen 325 mg Tablet 650 mg 2 tab(s), Oral, q6h acetaminophen 325 mg Tablet 650 mg 2 tab(s), Oral, q4h acetaminophen-HYDROcodone 325-5 mg tablet 1 tab(s), Oral, q4h albuterol - ipratropium 2.5 mg-0.5 mg/3 mL Inhal Corazon UD 3 mL, Inhalation, q2hRT dextrose 50% Solution Disp syringe 50 mL 12.5 gram(s) 25 mL, IV Push, AsDirected diazepam 5 mg tablet 5 mg 1 tab(s), Oral, Once melatonin 3 mg tablet 3 mg 1 tab(s), Oral, qHS ondansetron 2 mg/ 1 mL 2 mL INJ 4 mg 2 mL, IV Push, q4h polyethylene glycol 3350 - UD packet 17 gram(s) 15 mL, Oral, BID Lab Results 01/31 11:04 WBC: 7.3 Hgb: 14.0 Hct: 41.1 Platelet: 251 Neutrophil %: 71.0 Glucose Level: 201 H Sodium Level: 140 Potassium Level: 4.3 BUN: 8.0 Creatinine Lvl (s): 0.72 Imaging Results and Diagnostics XR Knee 3 Views Right Result Date: January 30, 2025 Verified By: ARIEL CASTILLO DO CLINICAL STATEMENT: IMPRESSION: No acute abnormality of the knee. MRI Brain w/o Contrast Result Date: January 30, 2025 Verified By: BOBBY PATRICIA MD CLINICAL STATEMENT: IMPRESSION: Unremarkable MRI brain. EKG No qualifying data available. Assessment/Plan Confusion Plan: -MRI brain w/o contrast reported nothing acute -Will check MRI brain with contrast -Labs reviewed. No NR, no MONTES DE OCA on exam. No WBC count. Low suspicion for meningitis. Pending UA, UDS, paraneoplastic panel, autoimmune encephalitis ab panel. Pending paraneoplastic andautoimmune encephalitis, CED panel. Labs pending on discharge can be FU as an OP. -Better BP control with goal < 130/80 mmHg, defer to hospitalist team. -Vitamin B12 1000 mcg PO once daily -Thiamine 100 mg once daily -Better DM management, defer to hospitalist team. Cannot completely rule out a nonorganic or psychiatric as a diagnosis, however, that is a diagnosisof exclusion & w/u needed prior. EEG w/o seizures. Non-pharmacological management of delirium as follows: Re-orient the patient frequently to person, place, and time. Lights on during the day, off at night (except one dim light). Allow normalization of sleep. Keep patient active during the day (e.g. Walking, up to chair, conversation); consult PT if indicated. Provide corrective/assistive devices if necessary (e.g. Eye glasses, hearing aids, etc.). Remove indwelling devices once possible (e.g. Dupont catheter). Maintain adequate hydration and nutritional status. Correct any underlying electrolyte abnormalities. Avoid benzodiazepines and any medications with anticholinergic properties if possible, as these mayworsen delirium. -GI/DVT prophylaxis -PT/OT/ST -Fall precautions -Follow up with Neurology in 4-6 weeks as outpatient -Please call with questions if any. -Thank you for allowing us to participate in patients care and management. -All questions were answered Discussed w/ Dr. Bloom, who agrees w/ plan. This note has been generated using PurpleTeal dictation software. It may contain incorrect words, punctuation's and spellings that were not noted in the review of the note prior to signing. Time Spent I spent a total of 36 minutes reviewing the patient s diagnostic labs/tests, seeing and examining the patient and documenting in the medical record. Digitally Signed by DORENE WOODARD on 02/01/2025 11:11 AM Digitally Signed by DORENE WOODARD on 02/01/2025 01:54 PM [facility] [id number] Neurology Consult note Date of Service 01/31/2025 Reason for Consultation AMS Referring Physician Hospitalist team History of Present Illness 49-year-old M with PMH HTN, HLD, DM, morbid obesity, history of methamphetamine use, h/O ETOH abuseadmitted with AMS. Per patient he has been having confusion for the last 1-2 month or so. Per documentation patient has been getting very short tempered with his family. No witnessed or documented seizures. At present patient denies any new onset focal neurological deficits, sensory loss, speech disturbances, visual disturbances, MONTES DE OCA or dizziness. Patient does go on tangent and get confused while talking about his job, but is oriented to self, place and year. MRI brain done during this admissionreported nothing acute. BP 174/95 mmHg. Labs WBC 7.3, Hb 14, platelet 251, glucose 201, sodium 140,potassium 4.3, creatinine 0.72, GFR 113, AST/ALT 14/14, HbA1c high at 8.6, TSH normal, ammonia normal, vitamin B12 355, patient is not on aspirin at baseline. Review of Systems Complete ROS negative except as documented in HPI. Physical Exam Vitals and Measurements T: 36.6 C (Oral) TMIN: 36.6 C (Oral) TMAX: 36.7 C (Oral) HR: 66 RR: 16 BP: 174/95 SpO2: 93% Weight Dosing Weight: 111 kg (01/30/25) General Examination: conscious,awake, oriented to self, place and year HEENT: normocephalic, pupils BERL Heart: normal S1 S2 Lungs: Bilateral air entry present Abdomen: bowel sounds present Psychiatry: Denies Anxiety, depression or suicidal ideations at present Neuro: Conscious, alert, oriented AoA x3, CN II-XII normal, no Nystagmus, EOMI, pupils BERL, No facial sensory loss, no facial asymmetry, tongue protrudes in midline, no uvula deviation, normal shoulder shrug, Power 5/5 B/L UE and LE, tone normal all 4 extremities, No tremors, No pronator drift, Reflexes + B/S/T/K/A, Plantars B/L flexor, No cerebellar signs, Romberg s deferred, No sensory loss tolight touch/temperature, gait deferred, No frontal release signs. No involuntary movements, No NR, No Kernig s sign, No Brudzinski s sign Lab Results 01/31 11:04 WBC: 7.3 Hgb: 14.0 Hct: 41.1 Platelet: 251 Neutrophil %: 71.0 Glucose Level: 201 H Sodium Level: 140 Potassium Level: 4.3 BUN: 8.0 Creatinine Lvl (s): 0.72 01/30 10:27 WBC: 6.3 Hgb: 13.0 Hct: 38.0 L Platelet: 231 Neutrophil %: 70.5 Glucose Level: 279 H Sodium Level: 138 Potassium Level: 4.2 BUN: 12.0 Creatinine Lvl (s): 0.73 Imaging Results and Diagnostics XR Knee 3 Views Right Result Date: January 30, 2025 Verified By: ARIEL CASTILLO DO CLINICAL STATEMENT: IMPRESSION: No acute abnormality of the knee. MRI Brain w/o Contrast Result Date: January 30, 2025 Verified By: BOBBY PATRICIA MD CLINICAL STATEMENT: IMPRESSION: Unremarkable MRI brain. Assessment/Plan Impressions: AMS Likely Toxic/Metabolic encephalopathy Uncontrolled HTN Plan: -MRI brain w/o contrast reported nothing acute -Will check MRI brain with contrast -EEG -Labs reviewed- UA, UDS, paraneoplastic panel, autoimmune encephalitis ab panel. Pending paraneoplastic and autoimmune encephalitis panel testing to be followed by PCP/outpatient Neurology, CED panel -At present patient's symptoms are likely secondary to underlying toxic/metabolic etiology -Better BP control with goal < 130/80 mmHg, defer to hospitalist team. -Vitamin B12 1000 mcg PO once daily -Thiamine 100 mg once daily -Better DM management, defer to hospitalist team. -Hospitalist admission H&P documentation reviewed -ED attending note reviewed -GI/DVT prophylaxis -PT/OT/ST -Fall precautions -Further medical management per medical team -Case discussed with hospitalist medical team -Patient counseled the risks and health hazards of smoking, excessive alcohol intake, marijuana/cocaine/drug abuse and patient counseled not to smoke cigarettes, drink excessive alcohol as well as not to smoke marijuana. Patient understands the same. -Follow up with Neurology in 4-6 weeks as outpatient -Please call with questions if any. -Thank you for allowing us to participate in patients care and management. -All questions were answered I will be off service tomorrow but will have incoming regional climate change analyst Neurology follow up pending neurological test results and follow up patient as needed, please call with questions if any in the interim. This note has been generated using PurpleTeal dictation software. It may contain incorrect words, punctuation's and spellings that were not noted in the review of the note prior to signing. Problem List/Past Medical History Ongoing BMI 40.0-44.9, adult History of methamphetamine use Hyperlipidemia Hypertension Type 2 diabetes mellitus Vitamin D deficiency Procedure/Surgical History No qualifying data available. Medications Inpatient acetaminophen, 650 mg= 2 tab(s), Oral, q6h, PRN acetaminophen, 650 mg= 2 tab(s), Oral, q4h, PRN amLODIPine, 10 mg= 1 tab(s), Oral, qDay ampicillin-sulbactam atorvastatin, 40 mg= 1 tab(s), Oral, qDay diazePAM, 5 mg= 1 tab(s), Oral, Once, PRN DuoNeb, 3 mL, Inhalation, q2hRT, PRN glucose, 12.5 gram(s)= 25 mL, IV Push, AsDirected, PRN HumaLOG 100 units/mL subcutaneous solution, 0-10 unit(s), Subcutaneous, achs Lovenox, 40 mg= 0.4 mL, Subcutaneous, qDay magnesium oxide, 400 mg= 1 tab(s), Oral, qDay melatonin, 3 mg= 1 tab(s), Oral, qHS, PRN Miralax Powder Packet, 17 gram(s)= 15 mL, Oral, BID, PRN Multivitamin, 1 tab(s), Oral, Daily Merkel 325- 5 mg oral tablet, 1 tab(s), Oral, q4h, PRN ondansetron, 4 mg= 2 mL, IV Push, q4h, PRN Vitamin A & D topical ointment, 1 robert, Topical, BID Vitamin D3 25 mcg (1000 intl units) oral tablet, 25 mcg= 1 tab(s), Oral, Daily Home amLODIPine 10 mg oral tablet, 10 mg= 1 tab(s), Oral, qDay atorvastatin 40 mg oral tablet, 40 mg= 1 tab(s), Oral, qDay FreeStyle Analia 3+ Sensors, See Instructions, 6 refills Magnesium 250 mg tablet, Oral, qDay MetFORMIN (Eqv-Glucophage XR) 500 mg oral tablet, EXTENDED RELEASE, 500 mg= 1 tab(s), Oral, BID, 1 refills Multivitamin, 1 tab(s), Oral, Daily Vitamin C, qDay Vitamin D3, 25 mcg= 1 tab(s), Oral, Daily Allergies No Known Medication Allergies Social History Substance Abuse Type: Marijuana., 06/19/2024 Tobacco Nicotine Use: Never (less than 100 in lifetime)., 06/19/2024 Family History Diabetes: Sister. Hypertension: Mother and Father. Health Status Family Member(s) Immunizations No qualifying data available. Digitally Signed by ALEXANDREA PATEL MD on 01/31/2025 02:14 PM Digitally Signed by ALEXANDREA PATEL MD on 01/31/2025 02:26 PM [facility] [id number] Note Date of Service 01/31/25 Reason for Consultation Admission From: Home Consult Skin Team re: Pressure Staging - Ordered -- 01/30/25 7:44:02 EDT Skin Team Findings Vitals and Measurements T: 36.6 C (Oral) TMIN: 36.6 C (Oral) TMAX: 36.7 C (Oral) HR: 77 RR: 16 BP: 145/73 SpO2: 99% Pressure Area Details ------Incision/Wound------ Hand Left - Incision, Wound Dressing: Open to Air Hand Left - Incision, Wound Surrounding Tissue: Normal skin tone Hand Left - Skin Abnormality Color: [place] Hand Left - Skin Abnormality Type: Burn Hand Left - Wound Associated Pain: None Hand Left - Wound Status: Healed dry hypopigmented skin with 1 small thin scab Leg Right Lower - Incision, Wound Dressing: Open to Air Leg Right Lower - Incision, Wound Surrounding Tissue: Erythema Leg Right Lower - Non-Pressure Ulcer Type: Undiagnosed ulcer Leg Right Lower - Skin Abnormality Color: Black, Red Leg Right Lower - Skin Abnormality Pattern: Depressed, Raised, Flat Multiple red spots, 2 raised fluctuance scabbed abscesses & 1 open with granulation/slough wound bed & small seropurulent drainage Leg Right Lower - Skin Abnormality Type: Non-pressure ulcer Leg Right Lower - Wound Associated Pain: With Cleansing Leg Right Lower - Wound Bed Description: Granulation, Necrotic tissue, slough, Scab Leg Right Lower - Wound Exudate Amount: Scant Leg Right Lower - Wound Exudate Odor: None Leg Right Lower - Wound Exudate Type: Seropurulent Toe, great Bilateral - Incision, Wound Dressing: Open to Air Toe, great Bilateral - Incision, Wound Surrounding Tissue: Dry, Induration Toe, great Bilateral - Skin Abnormality Pattern: Linear Toe, great Bilateral - Skin Abnormality Type: Fissure Toe, great Bilateral - Wound Exudate Amount: None Assessments and Recommendations ------Recommendations------ Recommended Skin/Wound Interventions: Other: Vitamin A&D ointment to toes/feet, Xeroform, ABD & Gauze to RLE, Warm compresses PRN Education Individuals Taught: Patient Learning Readiness: Willing to learn Barriers to Learning: None evident Teaching Method: Explanation Problem List/Past Medical History Ongoing BMI 40.0-44.9, adult History of methamphetamine use Hyperlipidemia Hypertension Type 2 diabetes mellitus Vitamin D deficiency Digitally Signed by KRISTOPHER Carias on 01/31/2025 09:30 AM [facility] [id number] Hospital Discharge instructions Patient Education 01/31/2025 04:35:21 Cellulitis, Adult Cellulitis, Adult Cellulitis is a skin infection. The infected area is usually warm, red, swollen, and tender. This condition occurs most often in the arms and lower legs. The infection can travel to the muscles, blood, and underlying tissue and become serious. It is very important to get treated for this condition. What are the causes? Cellulitis is caused by bacteria. The bacteria enter through a break in the skin, such as a cut, burn, insect bite, open sore, or crack. What increases the risk? This condition is more likely to occur in people who: Have a weak body defense system (immune system). Have open wounds on the skin, such as cuts, cobos, bites, and scrapes. Bacteria can enter the body through these open wounds. Are older than 60 years of age. Have diabetes. Have a type of long-lasting (chronic) liver disease (cirrhosis) or kidney disease. Are obese. Have a skin condition such as: ?Itchy rash (eczema). ?Slow movement of blood in the veins (venous stasis). ?Fluid buildup below the skin (edema). Have had radiation therapy. Use IV drugs. What are the signs or symptoms? Symptoms of this condition include: Redness, streaking, or spotting on the skin. Swollen area of the skin. Tenderness or pain when an area of the skin is touched. Warm skin. A fever. Chills. Blisters. How is this diagnosed? This condition is diagnosed based on a medical history and physical exam. You may also have tests, including: Blood tests. Imaging tests. How is this treated? Treatment for this condition may include: Medicines, such as antibiotic medicines or medicines to treat allergies (antihistamines). Supportive care, such as rest and application of cold or warm cloths (compresses) to the skin. Hospital care, if the condition is severe. The infection usually starts to get better within 1 2 days of treatment. Follow these instructions at home: Medicines Take zzck-lxp-ioitfyt and prescription medicines only as told by your health care provider. If you were prescribed an antibiotic medicine, take it as told by your health care provider. Do notstop taking the antibiotic even if you start to feel better. General instructions Drink enough fluid to keep your urine pale yellow. Do not touch or rub the infected area. Raise (elevate) the infected area above the level of your heart while you are sitting or lying down. Apply warm or cold compresses to the affected area as told by your health care provider. Keep all follow-up visits as told by your health care provider. This is important. These visits letyour health care provider make sure a more serious infection is not developing. Contact a health care provider if: You have a fever. Your symptoms do not begin to improve within 1 2 days of starting treatment. Your bone or joint underneath the infected area becomes painful after the skin has healed. Your infection returns in the same area or another area. You notice a swollen bump in the infected area. You develop new symptoms. You have a general ill feeling (malaise) with muscle aches and pains. Get help right away if: Your symptoms get worse. You feel very sleepy. You develop vomiting or diarrhea that persists. You notice red streaks coming from the infected area. Your red area gets larger or turns dark in color. These symptoms may represent a serious problem that is an emergency. Do not wait to see if the symptoms will go away. Get medical help right away. Call your local emergency services (911 in the [place] Do not drive yourself to the hospital. Summary Cellulitis is a skin infection. This condition occurs most often in the arms and lower legs. Treatment for this condition may include medicines, such as antibiotic medicines or antihistamines. Take czla-sfq-akosbbl and prescription medicines only as told by your health care provider. If you were prescribed an antibiotic medicine, do not stop taking the antibiotic even if you start to feel better. Contact a health care provider if your symptoms do not begin to improve within 1 2 days of startingtreatment or your symptoms get worse. Keep all follow-up visits as told by your health care provider. This is important. These visits letyour health care provider make sure that a more serious infection is not developing. This information is not intended to replace advice given to you by your health care provider. Make sure you discuss any questions you have with your health care provider. Document Released: 02/06/2006 Document Revised: 09/18/2018 Document Reviewed: 09/18/2018 [employer] Patient Education 2020 [employer]. Follow Up Care 01/29/2025 15:37:48 With:GLORIA CLEMENT MD Address: [address] [address]- When:Within 4 Week(s) only if needed With:[facility] [place] Address: When:Within 2 Week(s) Comments:Schedule appointment as soon as possible With:MAYRA COMBS Address: [address] [facility] [place] [address]- [phone] Business (1) When:1-2 days Comments:Please call the office to schedule your hospital follow up appointment With:Schedule appointment with podatrist of your choice for feet check with fissures along great toes & diabetic history. Address:Unknown When:1-2 days [facility] 09-20-2025 Note* Exam Date Time Procedure Performing Provider Status 01/30/25 5:39 PM XR Knee 3 Views Right ARIEL CASTILLO DO; Auth (Verified) [id number] ORIGINAL EXAMINATION: THREE XRAY VIEWS OF THE RIGHT KNEE 01/30/2025 5:39 pm COMPARISON: None. HISTORY: ORDERING SYSTEM PROVIDED HISTORY: Reason for Exam: trauma, pain FINDINGS: No evidence of acute fracture or dislocation. No focal osseous lesion. No evidence of joint effusion. No focal soft tissue abnormality. IMPRESSION: No acute abnormality of the knee. Interpreted by: Ariel Castillo Preliminary Report By: Ariel Castillo Electronically signed By Ariel Castillo Dictated Date: 01/30/2025 6:18:53 PM Prelim Date: 01/30/2025 6:19:15 PM Sign Date: 01/30/2025 6:19:15 PM Ordering Provider: DUANE BAGLEY [id number]* Exam Date Time Procedure Performing Provider Status 01/30/25 2:03 PM MRI Brain w/o Contrast YOLIE PATRICIA MD; Auth (Verified) [id number] ORIGINAL EXAMINATION: MRI OF THE BRAIN WITHOUT CONTRAST 01/30/2025 2:04 pm TECHNIQUE: Multiplanar multisequence MRI of the brain was performed without the administration of intravenous contrast. COMPARISON: None. HISTORY: ORDERING SYSTEM PROVIDED HISTORY: Reason for Exam: encephalopathy FINDINGS: INTRACRANIAL STRUCTURES/VENTRICLES: There is no acute infarct. No mass effect or midline shift. No evidence of an acute intracranial hemorrhage. The ventricles and sulci are normal in size and configuration. The sellar/suprasellar regions appear unremarkable. The normal signal voids within the major intracranial vessels appear maintained. ORBITS: The visualized portion of the orbits demonstrate no acute abnormality. SINUSES: The visualized paranasal sinuses and mastoid air cells demonstrate no acute abnormality. BONES/SOFT TISSUES: The bone marrow signal intensity appears normal. The soft tissues demonstrate no acute abnormality. IMPRESSION: Unremarkable MRI brain. Interpreted by: Bobby Patricia MD Preliminary Report By: Bobby Patricia MD Electronically signed By Bobby Patricia MD Dictated Date: 01/30/2025 3:19:22 PM Prelim Date: 01/30/2025 3:20:28 PM Sign Date: 01/30/2025 3:20:28 PM Ordering Provider: [facility]09-19-2025 History and physical note Chief Complaint Confusion History of Present Illness Patient is a very pleasant 49-year-old male with a past medical history of diabetes mellitus type 2as well as hypertension who presented to an outside ED with acute confusional state. Patient himself is quite a challenging historian as he is speaking clearly but certainly seems to have some confusion as will be described here shortly. I was able to review patient's records from the outside ED aswell as records from another ED visit approximately a month ago with a similar presentation. Also reviewed lab work from her recent PCP visit. Patient tells me that for approximately the last month he does not know himself. He has difficulty articulating exactly what this means but I was able to glean that he has had increasing confusion that has been building for the past month and often he states that he does not even understand himself. His confusion has manifested in frustration and he states that he has had a very short temper with his family recently and states that he was never someone that had difficulty controlling his temper or had anger before. This anger with his family is new. When I ask who is in his family or who he lives with he is unable to answer that question and seemingly does not even understand it. I asked him if he has had difficulty with work or employment and he does state that he works and mentions some work that he did out of town but that story seamlessly transitions into meeting someone and getting along and that blowing up and causing him more stress. 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 He has not had any acute somatic symptoms that I can identify. No recent illnesses. Review of Systems Complete detailed review of systems obtained and all pertinent positives and negatives are noted inthe history of present illness. Physical Exam Vitals and Measurements T: 36.7 C (Oral) HR: 76 (Monitored) RR: 18 BP: 171/88 SpO2: 96% No qualifying data available. Physical Examination General: No apparent distress. Patient is alert and conversant. HEENT: NCAT Neck: Supple. Cardiovascular: S1 S2 normal. No extra-audible heart tones. Respiratory: Bilaterally clear breath sounds with no crepitation or wheeze. Abdominal: Soft, benign. Extremities: Some erythema to the left lower extremity. Neurological: Grossly intact without focal deficit. Psychiatric: Challenging historian and patient almost seems to have flight of ideas when discussingtopics as noted in the history of present illness. It differs a bit from a classic flight of ideas presentation as a lot of it seems to be driven by lack of understanding. He is speaking conversant late but does seem quite anxious and intermittently has slight pressuring to his speech. Lab Results No 36 Hour Lab Data Assessment/Plan 1. Encephalopathy acute 2. Type 2 diabetes mellitus 3. Cellulitis of left lower extremity 4. Hypertension 5. BMI 40.0-44.9, adult 6. History of methamphetamine use Patient's presentation is certainly very challenging. He is not able to provide much usable historyat this point in reviewing his 2 recent ER visits was not very elucidative either. From what I cangather he is a typical productive member of society that is having increasing confusional states and it seems to be causing some sort of turmoil in his personal life per his account of the story. It is quite notable to me that he is unaware even of which ER he transferred from just an hour or 2 ago. He also was unable to understand the question of who his and his family or who lives with him. Because of this we will cast a wide medical net and I have ordered an MRI of the brain as certainly something like posterior reversible encephalopathy syndrome must be considered. I have also ordered inflammatory markers for possible encephalitis. No real exam findings for meningitis type state. Urine drug screen from the outside ER was reviewed and we will order a serum here as well. TGA was considered but his clinical presentation not particularly consistent with this as his presentation has lack of understanding of basic questions and loss of memory of events over multiple periods of time and not 1 focal time period. The possibility of an acute disproportionate psychiatric reaction to a stressor event is certainly a possibility as he does allude to some falling out in his personal life that seem to happen potentially recently, though again is very difficult to suss out these details. I certainly would not pursue a psychiatric diagnosis before completing a full medical workup as noted above. Patient does have some cellulitis of his left lower extremity and received piperacillin/tazobactam,ceftriaxone, vancomycin at the outside ED. We will order ampicillin-sulbactam and he likely can transition to p.o. antibiotics in the next 24 hours or so. I cannot see how this would be contributing to his acute confusional state. Patient is a full code Medications have yet to have been reconciled but it does appear as though he has been on [id number] mg daily for blood pressure. He is hypertensive at present and given his presentation we will order this x 1 and await the balance of his med rec. Orders: acetaminophen, 650 mg= 2 tab(s), Oral, q6h, PRN acetaminophen, 650 mg= 2 tab(s), Oral, q4h, PRN acetaminophen-hydrocodone(Merkel 325- 5 mg oral tablet), 1 tab(s), Oral, q4h, PRN albuterol-ipratropium(DuoNeb), 3 mL, Inhalation, q2hRT, PRN ampicillin-sulbactam, Start: 01/30/25 0:00:00 EDT, Dose = 3 gram(s), = 8 mL, IV Piggyback, q6h, Rate: 324 mL/hr, Infuse over: 20 minute(s), 01/29/25 23:34:00 EDT diazePAM, 5 mg= 1 tab(s), Oral, Once, PRN enoxaparin(Lovenox), 40 mg= 0.4 mL, Subcutaneous, qDay glucose, 12.5 gram(s)= 25 mL, IV Push, AsDirected, PRN insulin lispro (HumaLOG)(HumaLOG 100 units/mL subcutaneous solution), 0-10 unit(s), Subcutaneous, achs melatonin, 3 mg= 1 tab(s), Oral, qHS, PRN ondansetron, 4 mg= 2 mL, IV Push, q4h, PRN polyethylene glycol 3350(Miralax Powder Packet), 17 gram(s)= 15 mL, Oral, BID, PRN Activity as tolerated, 01/29/25 23:34:00 EDT, Constant Order Ammonia Level, 01/30/25 5:00:00 EDT, Next AM Draw (one day only), Blood, Once, Preferred Lab: [facility], Stop date 01/30/25 5:00:00 EDT Assign to Observation status, 01/29/25 23:35:00 EDT, Admit: LANDY FLORENCE MD FACP, Level of Care: Regular floor, Reason for Admission: See History & Physical, Diagnosis: encephalopathy, cellulitis, I certify that hospital services are medically necessary. At this time I do not... Blood Glucose Monitoring POC, 01/29/25 23:34:00 EDT, achs C-Reactive Protein(CRP), 01/30/25 5:00:00 EDT, Next AM Draw (one day only), Blood, Once, Preferred Lab: [facility], Stop date 01/30/25 5:00:00 EDT Code Status, 01/29/25 23:34:00 EDT, Full Code, Constant Order Complete Blood Count(CBC), 01/30/25 5:00:00 EDT, Next AM Draw (one day only), Blood, Once, Preferred Lab: [facility], Stop date 01/30/25 5:00:00 EDT Complete Metabolic Panel(CMP), 01/30/25 5:00:00 EDT, Next AM Draw (one day only), Blood, Once, [facility], Stop date 01/30/25 5:00:00 EDT Copper, Serum, 01/30/25 5:00:00 EDT, Next AM Draw (one day only), Blood, Once, [facility], Stop date 01/30/25 5:00:00 EDT Cortisol Level, 01/30/25 5:00:00 EDT, Next AM Draw (one day only), Blood, Once, Preferred Lab: [facility], Stop date 01/30/25 5:00:00 EDT Diet Order, 01/29/25 23:34:00 EDT, Start Meal: Now, Regular Diet, Constant Order Free T4, 01/30/25 5:00:00 EDT, Next AM Draw (one day only), Blood, Once, [facility], Stop date 01/30/25 5:00:00 EDT Magnesium Level, 01/30/25 5:01:00 EDT, Next AM Draw (one day only), Blood, Once, Preferred Lab: [facility], Stop date 01/30/25 5:01:00 EDT MRI Brain w/o Contrast(Brain MRI w/o Contrast), 01/29/25 23:34:00 EDT, 01/29/25 23:34:00 EDT, Routine, encephalopathy, Wt k.3, Prior Valve Replacement: No, [facility], ME6E ROUTINE EMERGENCY TREATMENT - Full Code, 01/29/25 23:34:00 EDT, Constant order Sedimentation Rate Automated(ESR), 01/30/25 5:00:00 EDT, Next AM Draw (one day only), Blood, Once, Preferred Lab: [facility], Stop date 01/30/25 5:00:00 EDT Serum Drug Screen(Drug Screen (serum)), 01/30/25 5:00:00 EDT, Next AM Draw (one day only), Blood, Once, Preferred Lab: [facility], Stop date 01/30/25 5:00:00 EDT Thyroid Stimulating Hormone(TSH), 01/30/25 5:00:00 EDT, Next AM Draw (one day only), Blood, Once, Preferred Lab: [facility], Stop date 01/30/25 5:00:00 EDT Total T3, 01/30/25 5:00:00 EDT, Next AM Draw (one day only), Blood, Once, Preferred Lab: [facility], Stop date 01/30/25 5:00:00 EDT Vitamin B12 Level(B12 Level), 01/30/25 5:00:00 EDT, Next AM Draw (one day only), Blood, Once, Preferred Lab: [facility], Stop date 01/30/25 5:00:00 EDT Problem List/Past Medical History Ongoing BMI 40.0-44.9, adult History of methamphetamine use Hyperlipidemia Hypertension Type 2 diabetes mellitus Vitamin D deficiency Procedure/Surgical History No qualifying data available. Medications Home Medications (8) Active amLODIPine 10 mg oral tablet 10 mg = 1 tab(s), Oral, qDay atorvastatin 40 mg oral tablet 40 mg = 1 tab(s), Oral, qDay FreeStyle Analia 3+ Sensors See Instructions Magnesium 250 mg tablet , Oral, qDay MetFORMIN (Eqv-Glucophage XR) 500 mg oral tablet, EXTENDED RELEASE 500 mg = 1 tab(s), Oral, BID Multivitamin 1 tab(s), Oral, Daily Vitamin C , qDay Vitamin D3 25 mcg = 1 tab(s), Oral, Daily Allergies No Known Medication Allergies Social History Substance Abuse Type: Marijuana., 06/19/2024 Tobacco Nicotine Use: Never (less than 100 in lifetime)., 06/19/2024 Family History Diabetes: Sister. Hypertension: Mother and Father. Health Status Family Member(s) Immunizations No qualifying data available. Code Status Code Status - Ordered -- 01/29/25 23:34:00 EDT, Full Code, Constant Order Digitally Signed by LANDY FLORENCE MD FACP on 01/29/2025 11:43 PM Digitally Signed by LANDY FLORENCE MD FACP on 01/29/2025 11:45 PM Digitally Signed by LANDY FLORENCE MD FACP on 01/29/2025 11:46 PM [id number] Evaluation + Plan noteExtracted from: Title:History and Physical Author:LANDY FLORENCE MD FACP Date:9/19/25 1. Encephalopathy acute 2. Type 2 diabetes mellitus 3. Cellulitis of left lower extremity 4. Hypertension 5. BMI 40.0-44.9, adult 6. History of methamphetamine use Patient's presentation is certainly very challenging. He is not able to provide much usable history at this point in reviewing his 2 recent ER visits was not very elucidative either. From what I can gather he is a typical productive member of society that is having increasing confusional states and it seems to be causing some sort of turmoil in his personal life per his account of the story. It is quite notable to me that he is unaware even of which ER he transferred from just an hour or 2 ago. He also was unable to understand the question of who his and his family or who lives with him. Because of this we will cast a wide medical net and I have ordered an MRI of the brain as certainly something like posterior reversible encephalopathy syndrome must be considered. I have also ordered inflammatory markers for possible encephalitis. No real exam findings for meningitis type state. Urine drug screen from the outside ER was reviewed and we will order a serum here as well. TGA was considered but his clinical presentation not particularly consistent with this as his presentation has lack of understanding of basic questions and loss of memory of events over multiple periods of time and not 1 focal time period. The possibility of an acute disproportionate psychiatric reaction to a stressor event is certainly a possibility as he does allude to some falling out in his personal life that seem to happen potentially recently, though again is very difficult to suss out these details. I certainly would not pursue a psychiatric diagnosis before completing a full medical workup as noted above. Patient does have some cellulitis of his left lower extremity and received piperacillin/tazobactam, ceftriaxone, vancomycin at the outside ED. We will order ampicillin-sulbactam and he likely can transition to p.o. antibiotics in the next 24 hours or so. I cannot see how this would be contributing to his acute confusional state. Patient is a full code Medications have yet to have been reconciled but it does appear as though he has been on amlodipine 10 mg daily for blood pressure. He is hypertensive at present and given his presentation we will order this x 1 and await the balance of his med rec. Orders: acetaminophen, 650 mg= 2 tab(s), Oral, q6h, PRN acetaminophen, 650 mg= 2 tab(s), Oral, q4h, PRN acetaminophen-hydrocodone(Merkel 325- 5 mg oral tablet), 1 tab(s), Oral, q4h, PRN albuterol-ipratropium(DuoNeb), 3 mL, Inhalation, q2hRT, PRN ampicillin-sulbactam, Start: 01/30/25 0:00:00 EDT, Dose = 3 gram(s), = 8 mL, IV Piggyback, q6h, Rate: 324 mL/hr, Infuse over: 20 minute(s), 01/29/25 23:34:00 EDT diazePAM, 5 mg= 1 tab(s), Oral, Once, PRN enoxaparin(Lovenox), 40 mg= 0.4 mL, Subcutaneous, qDay glucose, 12.5 gram(s)= 25 mL, IV Push, AsDirected, PRN insulin lispro (HumaLOG)(HumaLOG 100 units/mL subcutaneous solution), 0-10 unit(s), Subcutaneous, achs melatonin, 3 mg= 1 tab(s), Oral, qHS, PRN ondansetron, 4 mg= 2 mL, IV Push, q4h, PRN polyethylene glycol 3350(Miralax Powder Packet), 17 gram(s)= 15 mL, Oral, BID, PRN Activity as tolerated, 01/29/25 23:34:00 EDT, Constant Order Ammonia Level, 01/30/25 5:00:00 EDT, Next AM Draw (one day only), Blood, Once, Preferred Lab: [facility], Stop date 01/30/25 5:00:00 EDT Assign to Observation status, 01/29/25 23:35:00 EDT, Admit: LANDY FLORENCE MD FACP, Level of Care: Regular floor, Reason for Admission: See History & Physical, Diagnosis: encephalopathy, cellulitis, I certify that hospital services are medically necessary. At this time I do not... Blood Glucose Monitoring POC, 01/29/25 23:34:00 EDT, achs C-Reactive Protein(CRP), 01/30/25 5:00:00 EDT, Next AM Draw (one day only), Blood, Once, Preferred Lab: [facility], Stop date 01/30/25 5:00:00 EDT Code Status, 01/29/25 23:34:00 EDT, Full Code, Constant Order Complete Blood Count(CBC), 01/30/25 5:00:00 EDT, Next AM Draw (one day only), Blood, Once, Preferred Lab: [facility], Stop date 01/30/25 5:00:00 EDT Complete Metabolic Panel(CMP), 01/30/25 5:00:00 EDT, Next AM Draw (one day only), Blood, Once, Preferred Lab: [facility], Stop date 01/30/25 5:00:00 EDT Copper, Serum, 01/30/25 5:00:00 EDT, Next AM Draw (one day only), Blood, Once, Preferred Lab: [facility], Stop date 01/30/25 5:00:00 EDT Cortisol Level, 01/30/25 5:00:00 EDT, Next AM Draw (one day only), Blood, Once, Preferred Lab: [facility], Stop date 01/30/25 5:00:00 EDT Diet Order, 01/29/25 23:34:00 EDT, Start Meal: Now, Regular Diet, Constant Order Free T4, 01/30/25 5:00:00 EDT, Next AM Draw (one day only), Blood, Once, Preferred Lab: [facility], Stop date 01/30/25 5:00:00 EDT Magnesium Level, 01/30/25 5:01:00 EDT, Next AM Draw (one day only), Blood, Once, Preferred Lab: [facility], Stop date 01/30/25 5:01:00 EDT MRI Brain w/o Contrast(Brain MRI w/o Contrast), 01/29/25 23:34:00 EDT, 01/29/25 23:34:00 EDT, Routine, encephalopathy, Wt k.3, Prior Valve Replacement: No, [facility], ME6E ROUTINE EMERGENCY TREATMENT - Full Code, 01/29/25 23:34:00 EDT, Constant order Sedimentation Rate Automated(ESR), 01/30/25 5:00:00 EDT, Next AM Draw (one day only), Blood, Once, Preferred Lab: [facility], Stop date 01/30/25 5:00:00 EDT Serum Drug Screen(Drug Screen (serum)), 01/30/25 5:00:00 EDT, Next AM Draw (one day only), Blood, Once, Preferred Lab: [facility], Stop date 01/30/25 5:00:00 EDT Thyroid Stimulating Hormone(TSH), 01/30/25 5:00:00 EDT, Next AM Draw (one day only), Blood, Once, Preferred Lab: [facility], Stop date 01/30/25 5:00:00 EDT Total T3, 01/30/25 5:00:00 EDT, Next AM Draw (one day only), Blood, Once, Preferred Lab: [facility], Stop date 01/30/25 5:00:00 EDT Vitamin B12 Level(B12 Level), 01/30/25 5:00:00 EDT, Next AM Draw (one day only), Blood, Once, Preferred Lab: [facility], Stop date 01/30/25 5:00:00 EDT Diagnostic Tests Pending * Miscellaneous LC Test 02/03/25 * Histoplasma Gal'jillian Ag Ur 02/03/25 * [facility] Send Out (Non-Blood Specimens) 02/02/25 * West Nile Virus Antibody, CSF 02/02/25 * West Nile Virus Antibody,Serum 02/03/25 * [facility] Send out (Blood Specimens) 01/31/25 Future Scheduled Tests Laboratory* A1C Hemoglobin 09/16/24 * Lipid Profile 09/16/24 * Albumin/Creatinine Ratio, Random Urine 09/16/24 * Complete Metabolic Panel 09/16/24 [facility] 09-06-2025 Discharge summary [facility] Medical Records Department [address] [place] [address] Emergency Department Summary 01/15/25 MR#: [id number] Acct: [id number] Name: BRIANAGREGORY J Rep #:[id number] : 1975 49 From: Fernie Carballo PCP: Care Physician,No Primary Status :REG ER Location: ED HPI History of Present Illness Chief Complaint: Confusion PFSH PFSH Medical History Drug use Home Medications ?Medication ?Instructions ?Recorded ?Last Taken ?Type metformin 1,000 mg tablet 1,000 mg PO BID 01/15/25 Unk nown History Allergy/AdvReac Type Severity Reaction Status Date / Time No Known Allergies Allergy Verified 01/15/25 18:13 Family History no significant family his Social History household members: children housing: apartment Smoking Status: Former smoker substance use type: marijuana EXAM Physical Exam Const Vital Signs: 01/15/25 23:07 01/16/25 01:44 Temperature 98.3 F Temperature Source Oral Pulse Rate 102 H 81 Respiratory Rate 16 17 Blood Pressure 185/109 H 176/92 H Blood Pressure Mean 134 120 Pulse Ox 100 99 Oxygen Delivery Method Room Air Room Air MDM MDM MDM Narrative Medical decision making narrative: HISTORY OF PRESENT ILLNESS: Chief complaint: Confusion 49-year-old male history of substance abuse, amphentermine abuse presents with concern for confusion. Notes This has been going on for 1 to 2 years. Denies any head trauma. Denies any fevers. Denies any vomiting. Denies any cough. Denies any abdominal pain. Denies any drug use recently. States he just doesnot feel right. Patient denies any suicidal homicidal ideation. Denies any auditory visual hallucinations. Denies chest pain, shortness of breath or headaches. Denies recent falls or trauma. REVIEW OF SYSTEMS: Pertinent positives: Confusion Pertinent negatives: As per HPI PHYSICAL EXAM: Nursing triage notes reviewed, Vital signs reviewed Constitutional: please see mdm HENT: MMM Eyes: Pupils equal round and reactive to light, Extraocular muscles intact Neck: No stridor, no JVD, full neck ROM Lungs: Clear to auscultation, No wheezing or rales. No increased work of breathing, no conversational dyspnea, no accessory muscle use, no nasal flaring. No respiratory distress noted Heart: Regular rate and rhythm, No murmurs, No rubs and No gallops, 2+ distal pulses (radial, femoral, posterior tibial) in all extremities Abdomen: Soft, there is no tenderness, rigidity, rebound or guarding, no obviousperitoneal signs, no palpable pulsatile abdominal masses, no auscultated abdominal bruit : No CVAT Extremities: No edema Neuro: No new focal neurological deficits, cranial nerves II through XII intact,5/5 strength in allpresent extremities. Intact sensation to light touch in all present extremities, 2+ reflexes bilateral patella tendons. Skin: No rash or lesions noted Psych: Goal-directed thought process, does not appear to be responding to internal stimuli MEDICAL DECISION MAKING: Chief Complaint: please see HPI External records reviewed: Reviewed prior imaging studies Factors affecting care: As per [facility] Social determinants of health: Homeless History obtained from others: none Consults: none [facility] Narrative: The patient was initially HDS, afebrile, non-toxic appearing. Exam without obvious focal neurological deficits. I considered the following differential diagnosis: ICH, infectious or metabolic encephalopathy. I obtained a broad lab and imaging to further determine if the patient was suffering from a life-threatening etiology. ALL IMAGES (IF OBTAINED) HAVE BEEN PERSONALLY REVIEWED AND INTERPRETED BY MYSELF. CBC without leukocytosis, severe anemia, no thrombocytopenia. BMP without evidence of significant electrolyte abnormalities, no anion gap, no acute kidney injury. Urinalysis shows no evidence of urinary inflammation suggestive of UTI CT scan of the head negative for ICH I have personally reviewed the patient's chest x-ray. Chest x-ray is unremarkable for pulmonary edema, pneumothorax, pneumonia or focal cardiopulmonary abnormality. Upon re-evaluation patient was alert and oriented x 3. Patient notes he is homeless. States just wanting a place to stay. I have a strong suspicion for malingering. There is no indication for hospitalization at this time. Discussed elevated blood pressure in the emergency department and need for closeoutpatient follow-up. Gave outpatient resources including [facility] and local [facility]. Given the duration of his symptoms and lack of obvious findings to suggest metabolic, infectious or other encephalopathies patient will be discharged with close outpatient follow with his PCP for furtherevaluation and treatment. The patient and/or family, caregivers express understanding. The patient and/orfamily, caregivers agrees with the plan. Shared decision making: I will have a discussion with the patient and or visitors regarding risk/benefits of further testing or admission. They will be made aware of of the risk/benefits inherent in this decision they will be given the opportunity to voice understanding. Total critical care time today provided was at least 0 minutes. This excludes separately billable procedures. Critical care time (if documented) is secondary to the patient having high probability ofclinically significant/life threatening deterioration in the patient's condition which required my urgent intervention. Impression: 1. Confusion 2. History of polysubstance abuse Dispo: Discharge home This note was generated with Aspida dictation software. It may contain incorrectwords, spelling, and punctuation that were not noted in review of the chart prior to signing. Lab Data Labs: Laboratory Results - last 24 hr 01/16/25 01/16/25 00:00 00:15 WBC 9.3 RBC 4.84 Hgb 13.8 Hct 40.3 MCV 83.3 MCH 28.5 MCHC 34.2 RDW Std Deviation 36.1 RDW Coeff of Cornell 11.9 Plt Count 237 MPV 9.4 Immature Gran % (Auto) 0.300 Neut % (Auto) 68.7 Lymph % (Auto) 21.8 Owen % (Auto) 7.4 Eos % (Auto) 1.3 Baso % (Auto) 0.5 Absolute Neuts (auto) 6.4 Absolute Lymphs (auto) 2.03 Nucleated RBC % 0 Sodium 138 Potassium 4.2 Chloride 102 Carbon Dioxide 25.4 Anion Gap 10 BUN 16 Creatinine 0.85 Estim Creat Clear Calc 122.69 Est GFR (MDRD) Non-Af 108 BUN/Creatinine Ratio 18.4 Glucose 152 H Calcium 9.2 Urine Color Yellow Urine Clarity Clear Urine pH 6.0 Ur Specific [place] 1.020 Urine Protein 30 H Urine Glucose (UA) 50 H Urine Ketones 5 H Urine Occult Blood Negative Urine Nitrite Negative Urine Bilirubin Negative Urine Urobilinogen 1 H Ur Leukocyte Esterase Negative Urine RBC 0 SEEN Urine WBC 0-5 SEEN Ur Squamous Epith Cells 0-5 SEEN Urine Bacteria RARE Urine Mucus 1+ Radiography Diagnostic Testing: Clinical Impression(s) from Imaging Studies Brain CT 01/15/25 23:38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
[2025-02-12 23:45] VITALS: BP 138/112; PULSE 73; RESP 16; O2SAT 97
[2025-02-13] VITALS (8 sets, daily range): BP systolic 138–162; BP diastolic 74–102; PULSE 74–81; RESP 16–18; O2SAT 95–100
[2025-02-13 00:11] LABS: Barbiturate Urine NEGATIVE (< 200 ng/mL); Benzodiazepine Urine NEGATIVE (< 200 ng/mL); PCP Urine NEGATIVE (< 25 ng/mL); THC Urine PRESUMPTIVE POSITIVE (< 50 ng/mL)
[2025-02-13 00:12] LABS: Alcohol, Blood (Medical)-Serum < 10.1 mg/dL (<=10.0); Anion Gap 11 (5-15); BUN 16 mg/dL (4-19); BUN/Creat Ratio 17.9 RATIO (10-20); Calcium,Total 9.6 mg/dL (7.6-11.0); Carbon Dioxide 27.0 mmol/L (21.0-32.0); Chloride 100 mmol/L (98-108); Estimated Creatinine Clearance 116.37 ml/min (50-250); Glucose 115 mg/dL (70-99); Hematocrit 41.8 % (40-54); Hemoglobin 14.1 g/dL (13.0-16.5); Immature Granulocytes Count 0.020 X10^3/uL (0.0-0.0); Mean Corp Hgb Conc 33.7 g/dL (32-36); Mean Corpuscular Volume 85.0 fL (80-94); Mean Platelet Vol. 9.7 fl (6.2-12.0); NRBC Flagged by Analyzer 0 % (0-5); Platelet Count 257 K/mm3 (150-450); Potassium 3.8 mmol/L (3.3-5.1); RBC Distribution Width CV 12.0 % (11.6-14.6); RBC Distribution Width SD 36.6 fl (35.1-43.9); Red Blood Count 4.92 M/mm3 (4.6-6.2); White Blood Count 7.7 K/mm3 (4.4-11.0)
--- NOTE | 2025-02-13 10:38 | CM.ED ---
Social Work: pit worker power shovel asked to assist with reaching out to Crisis to get an update on placement status. Curing Pickling Packer spoke with Amor who stated that patient is pending at [facility] however [facility] is jammed up so on-call crisis team Ana and Santa are working with the mental health board in an attempt to secure funding for possible alternative placement. Amor to reach out to psychiatric social worker once additional updates become available. Virgen Jessica, DEVICE SALES CONSULTANT, FINGERPRINTER
--- NOTE | 2025-02-13 11:45 | PCA ---
THIS MARKET PRESIDENT SPOKE TO NOMAN AT [facility], ASKING FOR AN UPDATE ON PT. PT IS STILL PENDING AT [facility]. NOMAN SAID THAT [facility] HAS 15 PPL AHEAD OF OUT PT ON WAITING LIST. NOMAN ALSO SAID THAT [facility] WAS WORKING ON A SINGLE CASE AGREEMENT FOR PT, HOWEVER, THE FUNDS ARE LOW AND NOMAN SAID, IT LIKELY WASN'T GOING TO BE AN OPTION.
--- NOTE | 2025-02-13 15:46 | PCA ---
RADHA CAME IN AND SPOKE WITH PT. RADHA DUNLAPAH FEELS THAT PLACEMENT FOR PT IS STILL THE ROUT TO HEAD. MARIO SAID THAT TODAY THEY COULDN'T DO ANYTHING WITH SINGLE CASE AGREEMENT ([facility]) BECAUSE BOTH HER AND NOMAN, FROM CRISIS DO NOT HAVE ANY ACCESS TO AVAILABLE FUNDING FOR PT. TOMORROW, DAVE IS WORKING AND SHE HAS MORE ACCESS TO FUNDING, SO PERHAPS TOMORROW THE PT COULD BE REFEREED TO OTHER FACILITIES BESIDE [facility].
--- NOTE | 2025-02-13 16:58 | CM.ED ---
Social Work Retail Operations Manager provided update to patient per nursing request in regarding to placement status. Patient presented as not oriented, very confused and unable to answer questions appropriately. Patient presented with very to little recall/memory. Patient stated he thought he had Medicaid however wasn't able to remember who through, or where his wallet is. Patient stated it might be at home. Patient became tearful and stated he feels hopeless. Retail Operations Manager spent time with patient to offer emotional support and encouragement. Retail Operations Manager asked patient is he sees a psychiatrist, a mental health therapist and/or if he is currently taking any medication. Patient's only response is that he thinks he's supposed to be on medication. If patient is supposed to be on medication and is over or under-medicating, this might possibly explain some of the confusion as well as other presenting symptoms. (10:53) Retail Operations Manager made phone contact with the Crisis Team and spoke with Amor who stated that patient has already been re-assessed by Ana. (16:53) Ana with Crisis made phone contact with mental health social worker. Ana stated she, too, is concerned about patient's confusion/memory loss and agrees that patient is in need of inpatient psychiatric hospitalization placement. Ana stated patient was described as having increased agitation and patient also thought he was already placed and stated he thinks he's going to be placed forever. Ana stated she is going to send [facility] her updated psychiatric assessment. [facility] is full and doesn't accept anyone on the weekends. Ana stated Santa is off today and has informed the crisis team that she is unsure if there is current funding from the mental health board for possible alternative placement options so in the meantime, patient will remain in the ED through the remainder of the day today at minimum. Santa is expected to return to work tomorrow and will try and figure out funding questions. Otherwise, Crisis will continue to re-assess patient once every 24 hours. (16:58) Virgen Jessica, SUPERINTENDENT LOGGING, MEDIA MONITOR
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
--- NOTE | 2025-02-13 18:02 | ED.RN ---
pt again requesting AMA papers. explained that he could not sign out AMA. pt states that he was not told he was being placed. church secretary is on the phone with crisis, crisis stated that he was told that he was being placed. pt has punched they wall. pt states i'm not going down easily. I'm lawyering up when I get out of here. pt pacing the room
--- NOTE | 2025-02-13 18:07 | EKG12_ITS ---
Test Reason : [facility] Blood Pressure : */* mmHG Vent. Rate : 77 BPM Atrial Rate : 77 BPM P-R Int : 172 ms QRS Dur : 144 ms QT Int : 414 ms P-R-T Axes : 50 14 39 degrees QTcB Int : 468 ms Normal sinus rhythm with sinus arrhythmia Right bundle branch block Abnormal ECG Confirmed by VICTORIANO ELAINE MD ([id number]), field map editor MICHEL REYES ([id number]) on 02/15/2025 8:35:21 AM Referred By: Confirmed By: VICTORIANO ELAINE MD
[2025-02-13] MEDS: DiphenhydrAMINE 50 MG/ML Syringe IM (18:13)
[2025-02-13] MEDS: Ziprasidone IM 20 MG/ML VIAL IM (18:13)
--- NOTE | 2025-02-13 18:17 | ED.RN ---
Dr. Land attempting to explain to the pt why he is being placed. Dr. Land states that we will be giving him injections to help him relax. pt states you all are going to pay for this.
--- NOTE | 2025-02-13 18:21 | ED.RN ---
crisis back in the department to speak with pt. to reinforce the reason he is pink slipped and why he is being placed.
[2025-02-14 04:00] VITALS: BP 159/90; PULSE 73; RESP 16; O2SAT 100
--- NOTE | 2025-02-14 11:55 | CM.ED ---
Social Work automotive production worker made phone contact with Crisis and spoke with Dinora to get an update for possible funding for placement. Dinora stated Santa is supposed to be in later this afternoon and is following up on verification of funding from the [facility] Board and will let us know. (11:11) Automotive Accessory Installer met with patient to provide update. Patient still confused, however his memory was noted to be somewhat improved compared to previous day. Patient remembered the name of the person who brought him to the ED and used psychiatric social worker supervisor's phone to call a friend and ask for his wallet to be brought to the hospital. Patient was able to recall the friend's number from memory. Patient was otherwise eating and watching TV. (11:31) Automotive Accessory Installer updated patient again on acceptance of placement at [facility] and provided patient with a written brochure which patient expressed appreciation for. (11:55) Virgen Jessica, CONDITIONING COACH, CHIP SILO TENDER
[2025-02-14 12:00] VITALS: BP 143/90; PULSE 83; RESP 18; TEMP 36.8; O2SAT 99
--- NOTE | 2025-02-14 12:25 | CM.ED ---
Social Work Patient requested to speak with older adult social work specialist again. Patient shared the following information with o worker in case he forgets: Patient has a friend, Jeffrey, , who works at [employer] close to [facility] who has the phone number for Severo, patient's friend who patient said may have his wallet/possible insurance card. Patient has a son, Sergio Salazar, number unknown. Patient has a friend, Sofie Rapp, whom patient stated works here at [employer] [employer] in housekeeping. Patient also mentioned he had kids but did not provide any additional information. Patient called Jeffrey while older adult social work specialist was present with ED phone and asked Jeffrey to notify Severo, Sofie and Sergio that he will be transported to [facility] today and provided him with the address. Virgen eJssica, FINANCE ASSOCIATE, COSMETIC SALES ASSISTANT
--- NOTE | 2025-02-14 12:59 | ED.RN ---
ATTEMPTED TO CALL REPORT TO [facility] WITH NO ANSWER AND NO VOICEMAIL BOX.
--- NOTE | 2025-02-14 14:02 | ED.RN ---
ATTEMPTED TO CALL REPORT TO [facility]. RESPONSE THEY WILL CALL YOU BACK
--- NOTE | 2025-02-14 14:02 | PCA ---
THIS US CALLED TO GET UPDATED ETA FROM [facility], NEW TIME IS 1500
--- NOTE | 2025-02-14 14:10 | ED.RN ---
REPORT GIVEN TO JANAE AT [facility]. NO FURTHER QUESTIONS BY THE RECEIVING NURSE AT THIS TIME. TRANSPORT ETA 1500 AT THIS TIME.
[2025-02-14 15:09] VITALS: BP 137/85; PULSE 66; RESP 18; O2SAT 99
== END 2025-02-14 15:21 ==
PROVIDERS: Emergency Provider Emergency Medicine; Visit Provider Emergency Medicine
DX: F32.A Depression, unspecified (principal); E11.9 Type 2 diabetes mellitus without complications; R45.851 Suicidal ideations; I10 Essential (primary) hypertension; F41.9 Anxiety disorder, unspecified; Z87.891 Personal history of nicotine dependence; Z79.84 Long term (current) use of oral hypoglycemic drugs; Z79.899 Other long term (current) drug therapy
CPT/HCPCS: 36415; 80048; 80307; 82077; 85025; 93005; 96372; 99285; J3486